=== PATIENT | male | born 1995 | race Caucasian/White ===

== ENCOUNTER 2021-06-26 14:13 | Inpatient (IN) | payer BC, MEDICAID ==
[2021-06-26] MEDS ORDERED: Sodium Chloride 0.9% 10 ML Syringe FLUSH PRN (14:29)
--- NOTE | 2021-06-26 14:42 | EDM.PDOC ---
ED HPI GENERAL MEDICAL PROBLEM - General Chief Complaint: Respiratory Problem Stated Complaint: COVID +/SOB Time Seen by Provider: 06/26/21 14:25 Source of Information: Reports: Patient, RN Notes Reviewed History Limitations: Reports: No Limitations - History of Present Illness INITIAL COMMENTS - FREE TEXT/NARRATIVE: Patient is a 25-year-old male who presents to the ER for the evaluation of his COVID-19 symptoms. Upon presentation to the ER, O2 sats were found to be in the upper 80s on room air. Throughout exam, they steadily stayed in the upper 80s so we did place him on 2 L nasal cannula, and this did increase his oxygen saturations to about 93 to 94%. He is in no visible respiratory distress at this time but is been having increased cough, body aches, lethargy since about Wednesday, and did test positive on Wednesday morning. Has been using Tylenol and ibuprofen for symptomatic management. Patient's body habitus would be his only risk factor for worsening disease, as his BMI is over 40 he is denying any other past medical history. He has no regular care provider. Patient was not vaccinated for COVID-19. Lower Back Pain Score (Numeric/FACES): 5 - Related Data Allergies Allergy/AdvReac Type Severity Reaction Status Date / Time No Known Allergies Allergy Verified 06/26/21 14:28 Home Meds: Home Meds . [No Known Home Meds] 06/26/21 [History] Past Medical History - Past Health History Medical/Surgical History: Denies Medical/Surgical History Endocrine/Metabolic History: Reports: Obesity/BMI 30+ - Infectious Disease History Infectious Disease History: Reports: Novel Coronavirus (06/2021) Social & Family History - Tobacco Use Tobacco Use Status *Q: Never Tobacco User - Caffeine Use Caffeine Use: Reports: Energy Drinks, Soda - Recreational Drug Use Recreational Drug Use: No ED ROS GENERAL - Review of Systems Review Of Systems: Comprehensive ROS is negative, except as noted in HPI. ED EXAM, GENERAL - Physical Exam Exam: See Below Exam Limited By: No Limitations General Appearance: Alert, WD/WN, No Apparent Distress Respiratory/Chest: No Respiratory Distress, Normal Breath Sounds, No Accessory Muscle Use, Chest Non-Tender, Decreased Breath Sounds (bilaterally) Cardiovascular: Normal Peripheral Pulses, Regular Rate, Rhythm, No Edema Peripheral Pulses: 2+: Radial (L), Radial (R) GI/Abdominal: Normal Bowel Sounds, Soft, Non-Tender, No Distention, No Mass Extremities: Normal Inspection, Normal Capillary Refill Neurological: Alert, Oriented, Normal Cognition, No Motor/Sensory Deficits Psychiatric: Normal Affect, Normal Mood Skin Exam: Warm, Dry, Intact, Normal Color, No Rash Course - Vital Signs Last Recorded V/S: Last Vital Signs Temp 97.0 F 06/26/21 16:57 Pulse 92 06/26/21 16:57 Resp 16 06/26/21 16:57 BP 118/57 L 06/26/21 16:57 Pulse Ox 88 L 06/26/21 17:36 - Orders/Labs/Meds Orders: Active Orders 24 hr Category Date Time Status Nurse Communication: Isolation [RC] ASDIRECTED Care 06/26/21 15:43 Active Oxygen Therapy [RC] PRN Care 06/26/21 15:43 Active Positioning, Patient [RC] ASDIRECTED Care 06/26/21 15:47 Active RT Aerosol Therapy [RC] ASDIRECTED Care 06/26/21 15:48 Active RT Incentive Spirometry [RC] ASDIRECTED Care 06/26/21 15:43 Active Up ad Kristine [RC] 1100 Care 06/26/21 15:43 Active VTE/DVT Education [RC] PER UNIT ROUTINE Care 06/26/21 15:43 Active Vital Signs [RC] Q4HR Care 06/26/21 15:43 Active Respiratory Care Assess and Treatment [CONS] Routine Cons 06/26/21 15:43 Active Regular Diet [DIET] Diet 06/26/21 Dinner Active C-REACTIVE PROTEIN [CHEM] AM Lab 06/27/21 05:11 Ordered C-REACTIVE PROTEIN [CHEM] AM Lab 06/28/21 05:11 Ordered C-REACTIVE PROTEIN [CHEM] AM Lab 06/29/21 05:11 Ordered C-REACTIVE PROTEIN [CHEM] AM Lab 06/30/21 05:11 Ordered C-REACTIVE PROTEIN [CHEM] AM Lab 07/01/21 05:11 Ordered CBC WITH AUTO DIFF [HEME] AM Lab 06/27/21 05:11 Ordered CBC WITH AUTO DIFF [HEME] AM Lab 06/28/21 05:11 Ordered CBC WITH AUTO DIFF [HEME] AM Lab 06/29/21 05:11 Ordered CBC WITH AUTO DIFF [HEME] AM Lab 06/30/21 05:11 Ordered CBC WITH AUTO DIFF [HEME] AM Lab 07/01/21 05:11 Ordered CMP [COMPREHENSIVE METABOLIC PN,CMP] [CHEM] AM Lab 06/27/21 05:11 Ordered CMP [COMPREHENSIVE METABOLIC PN,CMP] [CHEM] AM Lab 06/28/21 05:11 Ordered CMP [COMPREHENSIVE METABOLIC PN,CMP] [CHEM] AM Lab 06/29/21 05:11 Ordered CMP [COMPREHENSIVE METABOLIC PN,CMP] [CHEM] AM Lab 06/30/21 05:11 Ordered CMP [COMPREHENSIVE METABOLIC PN,CMP] [CHEM] AM Lab 07/01/21 05:11 Ordered MAGNESIUM [CHEM] AM Lab 06/27/21 05:11 Ordered MAGNESIUM [CHEM] AM Lab 06/28/21 05:11 Ordered MAGNESIUM [CHEM] AM Lab 06/29/21 05:11 Ordered MAGNESIUM [CHEM] AM Lab 06/30/21 05:11 Ordered MAGNESIUM [CHEM] AM Lab 07/01/21 05:11 Ordered PHOSPHORUS [CHEM] AM Lab 06/27/21 05:11 Ordered PHOSPHORUS [CHEM] AM Lab 06/28/21 05:11 Ordered PHOSPHORUS [CHEM] AM Lab 06/29/21 05:11 Ordered PHOSPHORUS [CHEM] AM Lab 06/30/21 05:11 Ordered PHOSPHORUS [CHEM] AM Lab 07/01/21 05:11 Ordered PROCALCITONIN [REF] Routine Lab 06/26/21 14:45 Received Acetaminophen [TylenoL] Med 06/26/21 15:43 Active 650 mg PO Q4H PRN Albuterol/Ipratropium [DuoNeb 3.0-0.5 MG/3 ML] Med 06/26/21 15:43 Active 3 ml NEB Q4H PRN Benzonatate [Tessalon Perles] Med 06/26/21 15:48 Active 200 mg PO Q8H PRN Ondansetron [Zofran] Med 06/26/21 15:43 Active 4 mg IV Q6H PRN Remdesivir 100 mg Med 06/27/21 15:45 Active Sodium Chloride 0.9% [Normal Saline] 100 ml IV Q24H Sodium Chloride 0.9% [Saline Flush] Med 06/26/21 14:29 Active 10 ml FLUSH ASDIRECTED PRN polyethylene glycoL 3350 [MiraLAX] Med 06/26/21 15:43 Active 17 gm PO DAILY PRN Isolation [COMM] Stat Oth 06/26/21 15:43 Ordered Peripheral IV Insertion Adult [OM.PC] Routine Oth 06/26/21 14:29 Ordered Resuscitation Status Routine Resus Stat 06/26/21 15:43 Ordered Medication Orders Acetaminophen (Acetaminophen 325 Mg Tab) 650 mg PO Q4H PRN PRN Reason: Pain (Mild 1-3)/fever Last Admin: 06/26/21 18:03 Dose: 650 mg Documented by: SONY Albuterol/Ipratropium (Albuterol/Ipratropium 3.0-0.5 Mg/3 Ml Neb Soln) 3 ml NEB Q4H PRN PRN Reason: Shortness Of Breath/wheezing Benzonatate (Benzonatate 100 Mg Cap) 200 mg PO Q8H PRN PRN Reason: Cough Dexamethasone (Dexamethasone 4 Mg Tab) 6 mg PO Q24H [facility] Stop: 07/05/21 21:01 Last Admin: 06/26/21 20:23 Dose: 6 mg Documented by: LISS Enoxaparin Sodium (Enoxaparin 40 Mg/0.4 Ml Syringe) 40 mg SUBCUT Q24H [facility] Last Admin: 06/26/21 20:23 Dose: 40 mg Documented by: LISS Remdesivir 100 mg/ Sodium (Chloride) 100 mls @ 100 mls/hr IV Q24H MELLISA Stop: 06/30/21 16:44 Ondansetron HCl (Ondansetron 4 Mg/2 Ml Sdv) 4 mg IV Q6H PRN PRN Reason: Nausea/Vomiting Polyethylene Glycol (Polyethylene Glycol 3350 Powder 17 Gm Packet) 17 gm PO DAILY PRN PRN Reason: Constipation Sodium Chloride (Sodium Chloride 0.9% 10 Ml Syringe) 10 ml FLUSH ASDIRECTED PRN PRN Reason: Keep Vein Open Last Admin: 06/26/21 14:59 Dose: 10 ml Documented by: JAMES Labs: Laboratory Tests 06/26/21 06/26/21 06/26/21 Range/Units 14:45 14:45 14:45 WBC 7.83 (4.23-9.07) K/mm3 RBC 5.12 (4.63-6.08) M/mm3 Hgb 13.7 (13.7-17.5) gm/dl Hct 41.9 (40.1-51.0) % MCV 81.8 (79.0-92.2) fl MCH 26.8 (25.7-32.2) pg MCHC 32.7 (32.2-35.5) g/dl RDW Std Deviation 42.8 (35.1-43.9) fL Plt Count 164 (163-337) K/mm3 MPV 11.4 (9.4-12.3) fl Neut % (Auto) 85.1 H (34.0-67.9) % Lymph % (Auto) 12.4 L (21.8-53.1) % [place] % (Auto) 2.4 L (5.3-12.2) % Eos % (Auto) 0 L (0.8-7.0) Baso % (Auto) 0.1 (0.1-1.2) % Neut # (Auto) 6.66 H (1.78-5.38) K/mm3 Lymph # (Auto) 0.97 L (1.32-3.57) K/mm3 [place] # (Auto) 0.19 L (0.30-0.82) K/mm3 Eos # (Auto) 0.00 L (0.04-0.54) K/mm3 Baso # (Auto) 0.01 (0.01-0.08) K/mm3 D-Dimer, Quantitative 2.06 H (0.19-0.50) mg/L Sodium 137 (136-145) mEq/L Potassium 3.9 (3.5-5.1) mEq/L Chloride 97 L (98-107) mEq/L Carbon Dioxide 26 (21-32) mEq/L Anion Gap 17.9 H (5-15) BUN 27 H (7-18) mg/dL Creatinine 1.4 H (0.7-1.3) mg/dL Est Cr Clr Drug Dosing 79.39 mL/min Estimated GFR (MDRD) > 60 (>60) mL/min BUN/Creatinine Ratio 19.3 H (14-18) Glucose 124 H (70-99) mg/dL Calcium 8.5 (8.5-10.1) mg/dL Total Bilirubin 0.5 (0.2-1.0) mg/dL AST 61 H (15-37) U/L ALT 26 (16-63) U/L Alkaline Phosphatase 80 (46-116) U/L C-Reactive Protein 8.0 H* (<1.0) mg/dL Total Protein 7.6 (6.4-8.2) g/dl Albumin 3.3 L (3.4-5.0) g/dl Globulin 4.3 gm/dL Albumin/Globulin Ratio 0.8 L (1-2) Meds: Medications Generic Name Dose Route Start Last Admin Trade Name Nakia PRN Reason Stop Dose Admin Acetaminophen 650 mg 06/26/21 15:43 06/26/21 18:03 Acetaminophen 325 Mg Tab PO 650 mg Q4H PRN Administration Pain (Mild 1-3)/fever Albuterol/Ipratropium 3 ml 06/26/21 15:43 Albuterol/Ipratropium 3.0-0.5 Mg/3 Ml Neb Soln NEB Q4H PRN Shortness Of Breath/wheezing Benzonatate 200 mg 06/26/21 15:48 Benzonatate 100 Mg Cap PO Q8H PRN Cough Dexamethasone 6 mg 06/26/21 21:00 06/26/21 20:23 Dexamethasone 4 Mg Tab PO 07/05/21 21:01 6 mg Q24H MELLISA Administration Enoxaparin Sodium 40 mg 06/26/21 21:00 06/26/21 20:23 Enoxaparin 40 Mg/0.4 Ml Syringe SUBCUT 40 mg Q24H MELLISA Administration Remdesivir 100 mg/ Sodium 100 mls @ 100 mls/hr 06/27/21 15:45 Chloride IV 06/30/21 16:44 Q24H MELLISA Ondansetron HCl 4 mg 06/26/21 15:43 Ondansetron 4 Mg/2 Ml Sdv IV Q6H PRN Nausea/Vomiting Polyethylene Glycol 17 gm 06/26/21 15:43 Polyethylene Glycol 3350 Powder 17 Gm Packet PO DAILY PRN Constipation Sodium Chloride 10 ml 06/26/21 14:29 06/26/21 14:59 Sodium Chloride 0.9% 10 Ml Syringe FLUSH 10 ml ASDIRECTED PRN Administration Keep Vein Open Discontinued Medications Generic Name Dose Route Start Last Admin Trade Name Nakia PRN Reason Stop Dose Admin Dexamethasone 6 mg 06/26/21 16:00 06/26/21 17:42 Dexamethasone 4 Mg Tab PO 07/05/21 09:01 Not Given DAILY MELLISA Enoxaparin Sodium 40 mg 06/26/21 15:45 06/26/21 17:42 Enoxaparin 40 Mg/0.4 Ml Syringe SUBCUT Not Given DAILY MELLISA Remdesivir 200 mg/ Sodium 250 mls @ 250 mls/hr 06/26/21 15:43 06/26/21 17:11 Chloride IV 06/26/21 15:44 250 mls/hr ONETIME ONE Administration Influenza Virus Vaccine 1 each 06/26/21 17:16 Pharmacy To Dose - Influenza Vaccine IM 06/26/21 17:17 ONETIME ONE Influenza Virus Vaccine 60 mcg 06/26/21 17:30 Flu Vacc [id number] 36mos Up/Pf 60 Mcg/0.5 Ml Syringe IM 06/26/21 17:31 .ONCE ONE - Re-Assessments/Exams Free Text/Narrative Re-Assessment/Exam: 06/26/21 14:41 Patient presents to the ER for evaluation of his COVID-19 symptoms. He is hypoxic at initial presentation and has been placed on 2 L nasal cannula and is satting around 94%. I will discuss his case with our hospitalist, Dr. Veloz for possible hospital admission. 06/26/21 15:13 Chest x-ray does demonstrate diffuse patchy infiltrates. Departure - Departure Time of Disposition: 16:00 Disposition: Admitted As Inpatient 68 Condition: Fair Clinical Impression: Pneumonia due to COVID-19 virus, Hypoxia - Discharge Information Sepsis Event Note (ED) - Evaluation Sepsis Screening Result: No Definite Risk - Focused Exam Vital Signs: Vital Signs Temp Pulse Resp BP BP Pulse Ox 06/26/21 14:53 91 20 123/58 L 95 06/26/21 14:23 97.1 F 96 18 122/58 L 87 L - My Orders Last 24 Hours: My Active Orders 06/26/21 14:29 Sodium Chloride 0.9% [Saline Flush] 10 ml FLUSH ASDIRECTED PRN Peripheral IV Insertion Adult [OM.PC] Routine - Assessment/Plan Last 24 Hours: My Active Orders 06/26/21 14:29 Sodium Chloride 0.9% [Saline Flush] 10 ml FLUSH ASDIRECTED PRN Peripheral IV Insertion Adult [OM.PC] Routine
[2021-06-26] MEDS ORDERED: Acetaminophen 325 MG Tab PO PRN (15:43)
[2021-06-26] MEDS ORDERED: Polyethylene Glycol 3350 Powder 17 GM Packet PO PRN (15:43)
[2021-06-26] MEDS ORDERED: REMDESIVIR 200 MG in Sodium Chloride 0.9% 250 ML IV ONE (15:43)
[2021-06-26] MEDS ORDERED: Ondansetron 4 MG/2 ML SDV IV PRN (15:43)
[2021-06-26] MEDS ORDERED: Enoxaparin 40 MG/0.4 ML Syringe SUBCUT SCH (15:45)
[2021-06-26] MEDS ORDERED: Benzonatate 100 MG Cap PO PRN (15:48)
--- NOTE | 2021-06-26 15:50 | PCM.HP.2 ---
H&P History of Present Illness - General Date of Service: 06/26/21 - History of Present Illness Initial Comments - Free Text/Narative: 25-year-old morbidly obese male presenting to the emergency department with COVID-19 symptoms. Patient complains of mainly fatigue. Has some shortness of breath, cough, body aches over the last several days. Symptoms for started approximately 1 week ago. When he presented to the emergency department his oxygen saturations were in the 80s and he was placed on 2 L nasal cannula. Oxygen saturations improved to 93 to 94% that time. Lower Back Pain Score (Numeric/FACES): 5 - Related Data Allergies/Adverse Reactions: Allergies Allergy/AdvReac Type Severity Reaction Status Date / Time No Known Allergies Allergy Verified 06/26/21 14:28 Home Medications: Home Meds . [No Known Home Meds] 06/26/21 [History] Past Medical History - Past Health History Medical/Surgical History: Denies Medical/Surgical History Endocrine/Metabolic History: Reports: Obesity/BMI 30+ - Infectious Disease History Infectious Disease History: Reports: Novel Coronavirus (06/2021) Social & Family History - Tobacco Use Tobacco Use Status *Q: Never Tobacco User - Caffeine Use Caffeine Use: Reports: Energy Drinks, Soda - Recreational Drug Use Recreational Drug Use: No H&P Review of Systems - Review of Systems: Review Of Systems: Comprehensive ROS is negative, except as noted in HPI. Exam - Exam Exam: See Below - Vital Signs Vital Signs: Last Vital Signs Temp 97.1 F 06/26/21 14:23 Pulse 91 06/26/21 14:53 Resp 20 06/26/21 14:53 BP 123/58 L 06/26/21 14:53 Pulse Ox 95 06/26/21 14:53 Weight: 262 lb 12.8 oz - Exam Quality Assessment: Supplemental Oxygen General: Alert, Oriented, 4 HEENT: Conjunctiva Clear, Hearing Intact, Mucosa Moist & [place], Normal Nasal Septum Neck: Supple, Trachea Midline, 2 Lungs: Normal Respiratory Effort, Crackles (Bibasilar) Cardiovascular: Regular Rate, Regular Rhythm GI/Abdominal Exam: Normal Bowel Sounds, Soft, Non-Tender, No Distention Extremities: Normal Inspection, Normal Range of Motion, Non-Tender, No Pedal Edema, Normal Capillary Refill Skin: Warm, Dry, Intact Neurological: Cranial Nerves Intact Neuro Extensive - Mental Status: Alert, Oriented x3, Normal Mood/Affect, Normal Cognition, Memory Intact Neuro Extensive - Motor, Sensory, Reflexes: CN II-XII Intact Psychiatric: Alert, Normal Affect, Normal Mood - Patient Data Lab Results Last 24 hrs: Laboratory Results - last 24 hr 06/26/21 06/26/21 Range/Units 14:45 14:45 WBC 7.83 (4.23-9.07) K/mm3 RBC 5.12 (4.63-6.08) M/mm3 Hgb 13.7 (13.7-17.5) gm/dl Hct 41.9 (40.1-51.0) % MCV 81.8 (79.0-92.2) fl MCH 26.8 (25.7-32.2) pg MCHC 32.7 (32.2-35.5) g/dl RDW Std Deviation 42.8 (35.1-43.9) fL Plt Count 164 (163-337) K/mm3 MPV 11.4 (9.4-12.3) fl Neut % (Auto) 85.1 H (34.0-67.9) % Lymph % (Auto) 12.4 L (21.8-53.1) % [place] % (Auto) 2.4 L (5.3-12.2) % Eos % (Auto) 0 L (0.8-7.0) Baso % (Auto) 0.1 (0.1-1.2) % Neut # (Auto) 6.66 H (1.78-5.38) K/mm3 Lymph # (Auto) 0.97 L (1.32-3.57) K/mm3 [place] # (Auto) 0.19 L (0.30-0.82) K/mm3 Eos # (Auto) 0.00 L (0.04-0.54) K/mm3 Baso # (Auto) 0.01 (0.01-0.08) K/mm3 Sodium 137 (136-145) mEq/L Potassium 3.9 (3.5-5.1) mEq/L Chloride 97 L (98-107) mEq/L Carbon Dioxide 26 (21-32) mEq/L Anion Gap 17.9 H (5-15) BUN 27 H (7-18) mg/dL Creatinine 1.4 H (0.7-1.3) mg/dL Est Cr Clr Drug Dosing 79.39 mL/min Estimated GFR (MDRD) > 60 (>60) mL/min BUN/Creatinine Ratio 19.3 H (14-18) Glucose 124 H (70-99) mg/dL Calcium 8.5 (8.5-10.1) mg/dL Total Bilirubin 0.5 (0.2-1.0) mg/dL AST 61 H (15-37) U/L ALT 26 (16-63) U/L Alkaline Phosphatase 80 (46-116) U/L C-Reactive Protein 8.0 H* (<1.0) mg/dL Total Protein 7.6 (6.4-8.2) g/dl Albumin 3.3 L (3.4-5.0) g/dl Globulin 4.3 gm/dL Albumin/Globulin Ratio 0.8 L (1-2) Result Diagrams: 06/27/21 05:43 06/27/21 05:43 Sepsis Event Note - Evaluation Sepsis Screening Result: No Definite Risk - Focused Exam Vital Signs: Vital Signs Temp Pulse Resp BP BP Pulse Ox 06/26/21 14:53 91 20 123/58 L 95 06/26/21 14:23 97.1 F 96 18 122/58 L 87 L - Problem List (1) Hypoxia SNOMED Code(s): 811236434 ICD Code: R09.02 - HYPOXEMIA Status: Acute Current Visit: Yes (2) Pneumonia due to COVID-19 virus SNOMED Code(s): 313786916153698916 ICD Code: U07.1 - COVID-19; J12.82 - PNEUMONIA DUE TO CORONAVIRUS DISEASE 2019 Status: Acute Current Visit: Yes Problem List Initiated/Reviewed/Updated: Yes Orders Last 24hrs: Active Orders 24 hr Category Date Time Status Nurse Communication: Isolation [RC] ASDIRECTED Care 06/26/21 15:43 Active Oxygen Therapy [RC] PRN Care 06/26/21 15:43 Active Peripheral IV Care [RC] . DIRECTED Care 06/26/21 14:30 Active Positioning, Patient [RC] ASDIRECTED Care 06/26/21 15:47 Active RT Aerosol Therapy [RC] ASDIRECTED Care 06/26/21 15:48 Active RT Incentive Spirometry [RC] ASDIRECTED Care 06/26/21 15:43 Active Up ad Kristine [RC] ASDIRECTED Care 06/26/21 15:43 Active VTE/DVT Education [RC] PER UNIT ROUTINE Care 06/26/21 15:43 Active Vital Signs [RC] Q4H Care 06/26/21 15:43 Active Respiratory Care Assess and Treatment [CONS] Routine Cons 06/26/21 15:43 Active Regular Diet [DIET] Diet 06/26/21 Dinner Active Chest 1V Frontal [CR] Stat Exams 06/26/21 14:29 Taken C-REACTIVE PROTEIN [CHEM] AM Lab 06/27/21 05:11 Ordered C-REACTIVE PROTEIN [CHEM] AM Lab 06/28/21 05:11 Ordered C-REACTIVE PROTEIN [CHEM] AM Lab 06/29/21 05:11 Ordered C-REACTIVE PROTEIN [CHEM] AM Lab 06/30/21 05:11 Ordered C-REACTIVE PROTEIN [CHEM] AM Lab 07/01/21 05:11 Ordered CBC WITH AUTO DIFF [HEME] AM Lab 06/27/21 05:11 Ordered CBC WITH AUTO DIFF [HEME] AM Lab 06/28/21 05:11 Ordered CBC WITH AUTO DIFF [HEME] AM Lab 06/29/21 05:11 Ordered CBC WITH AUTO DIFF [HEME] AM Lab 06/30/21 05:11 Ordered CBC WITH AUTO DIFF [HEME] AM Lab 07/01/21 05:11 Ordered CMP [COMPREHENSIVE METABOLIC PN,CMP] [CHEM] AM Lab 06/27/21 05:11 Ordered CMP [COMPREHENSIVE METABOLIC PN,CMP] [CHEM] AM Lab 06/28/21 05:11 Ordered CMP [COMPREHENSIVE METABOLIC PN,CMP] [CHEM] AM Lab 06/29/21 05:11 Ordered CMP [COMPREHENSIVE METABOLIC PN,CMP] [CHEM] AM Lab 06/30/21 05:11 Ordered CMP [COMPREHENSIVE METABOLIC PN,CMP] [CHEM] AM Lab 07/01/21 05:11 Ordered D-DIMER QUANTITATIVE [COAG] Stat Lab 06/26/21 14:45 Received MAGNESIUM [CHEM] AM Lab 06/27/21 05:11 Ordered MAGNESIUM [CHEM] AM Lab 06/28/21 05:11 Ordered MAGNESIUM [CHEM] AM Lab 06/29/21 05:11 Ordered MAGNESIUM [CHEM] AM Lab 06/30/21 05:11 Ordered MAGNESIUM [CHEM] AM Lab 07/01/21 05:11 Ordered PHOSPHORUS [CHEM] AM Lab 06/27/21 05:11 Ordered PHOSPHORUS [CHEM] AM Lab 06/28/21 05:11 Ordered PHOSPHORUS [CHEM] AM Lab 06/29/21 05:11 Ordered PHOSPHORUS [CHEM] AM Lab 06/30/21 05:11 Ordered PHOSPHORUS [CHEM] AM Lab 07/01/21 05:11 Ordered PROCALCITONIN [REF] Routine Lab 06/26/21 15:48 Ordered Acetaminophen [TylenoL] Med 06/26/21 15:43 Active 650 mg PO Q4H PRN Albuterol/Ipratropium [DuoNeb 3.0-0.5 MG/3 ML] Med 06/26/21 15:43 Ordered 3 ml NEB Q4H PRN Benzonatate [Tessalon Perles] Med 06/26/21 15:48 Ordered 200 mg PO Q8H PRN Enoxaparin [Lovenox] Med 06/26/21 15:45 Active 40 mg SUBCUT DAILY Ondansetron [Zofran] Med 06/26/21 15:43 Ordered 4 mg IV Q6H PRN Remdesivir 100 mg Med 06/27/21 15:45 Ordered Sodium Chloride 0.9% [Normal Saline] 100 ml IV Q24H Remdesivir 200 mg Med 06/26/21 15:43 Ordered Sodium Chloride 0.9% [Normal Saline] 250 ml IV ONETIME Sodium Chloride 0.9% [Saline Flush] Med 06/26/21 14:29 Active 10 ml FLUSH ASDIRECTED PRN dexAMETHasone Med 06/26/21 16:00 Ordered 6 mg PO DAILY polyethylene glycoL 3350 [MiraLAX] Med 06/26/21 15:43 Ordered 17 gm PO DAILY PRN Isolation [COMM] Stat Oth 06/26/21 15:43 Ordered Peripheral IV Insertion Adult [OM.PC] Routine Oth 06/26/21 14:29 Ordered Resuscitation Status Routine Resus Stat 06/26/21 15:43 Ordered Medication Orders Acetaminophen (Acetaminophen 325 Mg Tab) 650 mg PO Q4H PRN PRN Reason: Pain (Mild 1-3)/fever Albuterol/Ipratropium (Albuterol/Ipratropium 3.0-0.5 Mg/3 Ml Neb Soln) 3 ml NEB Q4H PRN PRN Reason: Shortness Of Breath/wheezing Dexamethasone (Dexamethasone 4 Mg Tab) 6 mg PO DAILY MELLISA Stop: 07/05/21 09:01 Enoxaparin Sodium (Enoxaparin 40 Mg/0.4 Ml Syringe) 40 mg SUBCUT DAILY [facility] Ondansetron HCl (Ondansetron 4 Mg/2 Ml Sdv) 4 mg IV Q6H PRN PRN Reason: Nausea/Vomiting Polyethylene Glycol (Polyethylene Glycol 3350 Powder 17 Gm Packet) 17 gm PO DAILY PRN PRN Reason: Constipation Sodium Chloride (Sodium Chloride 0.9% 10 Ml Syringe) 10 ml FLUSH ASDIRECTED PRN PRN Reason: Keep Vein Open Last Admin: 06/26/21 14:59 Dose: 10 ml Documented by: JAMES Assessment/Plan Comment:: 25-year-old morbidly obese male with COVID-19 pneumonia and hypoxemia. COVID-19 pneumonia with hypoxia * Requiring 2 L nasal cannula * Did not receive vaccination * WBC 7.83, D-dimer 2.06, C-reactive protein 8.0 * Creatinine 1.4, unknown if this is his baseline or mildly elevated. Estimated GFR still greater than 60. * Decrease sense of smell and taste with poor appetite * Chest x-ray showed diffuse increased density within both sides of the chest suspicious for diffuse Covid pneumonia * No findings suggestive of bacterial pneumonia Plan * Admit to medical floor with strict isolation * Remdesivir, dexamethasone, FiO2 to keep SPO2 between 88 and 94%. * Follow daily CBC, CMP, mag, CRP for the first 5 days * Follow periodic D-dimers * RT consult. * I-S * Encourage quality food including protein intake * Encourage proning * Lovenox 40 mg subcu for VTE prophylaxis * CODE STATUS full code - Mortality Measure Prognosis:: Good
[2021-06-26] MEDS ORDERED: Dexamethasone 4 MG Tab PO SCH (16:00)
--- NOTE | 2021-06-26 16:33 | CR ---
Chest: Portable supine view of the chest was obtained. Comparison: Prior chest x-ray of 04/28/09. Heart size and mediastinum are within normal limits for supine technique. Patchy areas of increased density are noted throughout both sides of the chest which have the appearance of diffuse Covid pneumonia. Bony structures appear within normal limits. Impression: 1. Diffuse increased density within both sides of the chest suspicious for diffuse Covid pneumonia. Diagnostic code #3
[2021-06-26] MEDS ORDERED: FLU Vacc QS2021-22 36MOS UP/PF 60 MCG/0.5 ML Syringe IM ONE (17:30)
[2021-06-26] MEDS: Dexamethasone 4 MG Tab PO SCH (20:23)
[2021-06-26] MEDS: Enoxaparin 40 MG/0.4 ML Syringe SUBCUT SCH (20:23)
[2021-06-27] MEDS: Albuterol/Ipratropium 3.0-0.5 MG/3 ML Neb Soln NEB PRN ×2 (09:22→20:35)
--- NOTE | 2021-06-27 14:04 | PCM.PN ---
- General Info Date of Service: 06/27/21 Admission Dx/Problem (Free Text): COVID-19 positive test (U07.1, COVID-19) with Acute Pneumonia (J12.89, Other viral pneumonia) (If respiratory failure or sepsis present, add as separate assessment) Subjective Update: 25-year-old morbidly obese male not vaccinated against COVID-19 with Covid pneumonia. Oxygen requirements worsened and FiO2 was increased from 2 L/min nasal cannula to a 10 L mask. Functional Status: Reports: Pain Controlled - Review of Systems General: Reports: Fatigue HEENT: Reports: No Symptoms Pulmonary: Reports: Shortness of Breath, Cough Cardiovascular: Reports: No Symptoms Gastrointestinal: Reports: No Symptoms Musculoskeletal: Reports: No Symptoms Psychiatric: Reports: No Symptoms - Patient Data Vitals - Most Recent: Last Vital Signs Temp 97.5 F 06/27/21 11:55 Pulse 86 06/27/21 11:55 Resp 20 06/27/21 11:55 BP 108/53 L 06/27/21 11:55 Pulse Ox 94 L 06/27/21 12:26 Weight - Most Recent: 254 lb 1.6 oz I&O - Last 24 Hours: Intake & Output 06/26/21 06/27/21 06/27/21 22:59 06:59 14:59 Intake Total 440 800 Balance 440 800 Lab Results Last 24 Hours: Laboratory Results - last 24 hr 06/26/21 06/26/21 06/26/21 Range/Units 14:45 14:45 14:45 WBC 7.83 (4.23-9.07) K/mm3 RBC 5.12 (4.63-6.08) M/mm3 Hgb 13.7 (13.7-17.5) gm/dl Hct 41.9 (40.1-51.0) % MCV 81.8 (79.0-92.2) fl MCH 26.8 (25.7-32.2) pg MCHC 32.7 (32.2-35.5) g/dl RDW Std Deviation 42.8 (35.1-43.9) fL Plt Count 164 (163-337) K/mm3 MPV 11.4 (9.4-12.3) fl Neut % (Auto) 85.1 H (34.0-67.9) % Lymph % (Auto) 12.4 L (21.8-53.1) % [place] % (Auto) 2.4 L (5.3-12.2) % Eos % (Auto) 0 L (0.8-7.0) Baso % (Auto) 0.1 (0.1-1.2) % Neut # (Auto) 6.66 H (1.78-5.38) K/mm3 Lymph # (Auto) 0.97 L (1.32-3.57) K/mm3 [place] # (Auto) 0.19 L (0.30-0.82) K/mm3 Eos # (Auto) 0.00 L (0.04-0.54) K/mm3 Baso # (Auto) 0.01 (0.01-0.08) K/mm3 D-Dimer, Quantitative 2.06 H (0.19-0.50) mg/L Sodium 137 (136-145) mEq/L Potassium 3.9 (3.5-5.1) mEq/L Chloride 97 L (98-107) mEq/L Carbon Dioxide 26 (21-32) mEq/L Anion Gap 17.9 H (5-15) BUN 27 H (7-18) mg/dL Creatinine 1.4 H (0.7-1.3) mg/dL Est Cr Clr Drug Dosing 79.39 mL/min Estimated GFR (MDRD) > 60 (>60) mL/min BUN/Creatinine Ratio 19.3 H (14-18) Glucose 124 H (70-99) mg/dL Calcium 8.5 (8.5-10.1) mg/dL Phosphorus (2.6-4.7) mg/dL Magnesium (1.8-2.4) mg/dL Total Bilirubin 0.5 (0.2-1.0) mg/dL AST 61 H (15-37) U/L ALT 26 (16-63) U/L Alkaline Phosphatase 80 (46-116) U/L C-Reactive Protein 8.0 H* (<1.0) mg/dL Total Protein 7.6 (6.4-8.2) g/dl Albumin 3.3 L (3.4-5.0) g/dl Globulin 4.3 gm/dL Albumin/Globulin Ratio 0.8 L (1-2) Procalcitonin ng/mL 06/26/21 06/27/21 06/27/21 Range/Units 14:45 05:43 05:43 WBC 6.50 (4.23-9.07) K/mm3 RBC 5.10 (4.63-6.08) M/mm3 Hgb 13.6 L (13.7-17.5) gm/dl Hct 41.3 (40.1-51.0) % MCV 81.0 (79.0-92.2) fl MCH 26.7 (25.7-32.2) pg MCHC 32.9 (32.2-35.5) g/dl RDW Std Deviation 41.9 (35.1-43.9) fL Plt Count 172 (163-337) K/mm3 MPV 11.6 (9.4-12.3) fl Neut % (Auto) 89.1 H (34.0-67.9) % Lymph % (Auto) 8.3 L (21.8-53.1) % [place] % (Auto) 2.2 L (5.3-12.2) % Eos % (Auto) 0 L (0.8-7.0) Baso % (Auto) 0.2 (0.1-1.2) % Neut # (Auto) 5.80 H (1.78-5.38) K/mm3 Lymph # (Auto) 0.54 L (1.32-3.57) K/mm3 [place] # (Auto) 0.14 L (0.30-0.82) K/mm3 Eos # (Auto) 0.00 L (0.04-0.54) K/mm3 Baso # (Auto) 0.01 (0.01-0.08) K/mm3 D-Dimer, Quantitative (0.19-0.50) mg/L Sodium 134 L (136-145) mEq/L Potassium 3.6 (3.5-5.1) mEq/L Chloride 97 L (98-107) mEq/L Carbon Dioxide 26 (21-32) mEq/L Anion Gap 14.6 (5-15) BUN 31 H (7-18) mg/dL Creatinine 1.1 (0.7-1.3) mg/dL Est Cr Clr Drug Dosing 101.05 mL/min Estimated GFR (MDRD) > 60 (>60) mL/min BUN/Creatinine Ratio 28.2 H (14-18) Glucose 144 H (70-99) mg/dL Calcium 8.3 L (8.5-10.1) mg/dL Phosphorus 4.4 (2.6-4.7) mg/dL Magnesium 2.3 (1.8-2.4) mg/dL Total Bilirubin 0.4 (0.2-1.0) mg/dL AST 72 H (15-37) U/L ALT 32 (16-63) U/L Alkaline Phosphatase 79 (46-116) U/L C-Reactive Protein 8.0 H* (<1.0) mg/dL Total Protein 7.3 (6.4-8.2) g/dl Albumin 2.9 L (3.4-5.0) g/dl Globulin 4.4 gm/dL Albumin/Globulin Ratio 0.7 L (1-2) Procalcitonin 0.16 H ng/mL Med Orders - Current: Current Medications Acetaminophen (Acetaminophen 325 Mg Tab) 650 mg PO Q4H PRN PRN Reason: Pain (Mild 1-3)/fever Last Admin: 06/26/21 18:03 Dose: 650 mg Documented by: Albuterol/Ipratropium (Albuterol/Ipratropium 3.0-0.5 Mg/3 Ml Neb Soln) 3 ml NEB Q4H PRN PRN Reason: Shortness Of Breath/wheezing Last Admin: 06/27/21 09:22 Dose: 3 ml Documented by: Benzonatate (Benzonatate 100 Mg Cap) 200 mg PO Q8H PRN PRN Reason: Cough Dexamethasone (Dexamethasone 4 Mg Tab) 6 mg PO Q24H [facility] Stop: 07/05/21 21:01 Last Admin: 06/26/21 20:23 Dose: 6 mg Documented by: Enoxaparin Sodium (Enoxaparin 40 Mg/0.4 Ml Syringe) 40 mg SUBCUT Q24H [facility] Last Admin: 06/26/21 20:23 Dose: 40 mg Documented by: Remdesivir 100 mg/ Sodium (Chloride) 100 mls @ 100 mls/hr IV Q24H [facility] Stop: 06/30/21 16:44 Ondansetron HCl (Ondansetron 4 Mg/2 Ml Sdv) 4 mg IV Q6H PRN PRN Reason: Nausea/Vomiting Polyethylene Glycol (Polyethylene Glycol 3350 Powder 17 Gm Packet) 17 gm PO DAILY PRN PRN Reason: Constipation Sodium Chloride (Sodium Chloride 0.9% 10 Ml Syringe) 10 ml FLUSH ASDIRECTED PRN PRN Reason: Keep Vein Open Last Admin: 06/26/21 14:59 Dose: 10 ml Documented by: Discontinued Medications Dexamethasone (Dexamethasone 4 Mg Tab) 6 mg PO DAILY [facility] Stop: 07/05/21 09:01 Last Admin: 06/26/21 17:42 Dose: Not Given Documented by: Enoxaparin Sodium (Enoxaparin 40 Mg/0.4 Ml Syringe) 40 mg SUBCUT DAILY [facility] Last Admin: 06/26/21 17:42 Dose: Not Given Documented by: Remdesivir 200 mg/ Sodium (Chloride) 250 mls @ 250 mls/hr IV ONETIME ONE Stop: 06/26/21 15:44 Last Admin: 06/26/21 17:11 Dose: 250 mls/hr Documented by: Influenza Virus Vaccine (Pharmacy To Dose - Influenza Vaccine) 1 each IM ONETIME ONE Stop: 06/26/21 17:17 Influenza Virus Vaccine (Flu Vacc [id number] 36mos Up/Pf 60 Mcg/0.5 Ml Syringe) 60 mcg IM .ONCE ONE Stop: 06/26/21 17:31 - Exam Quality Assessment: Supplemental Oxygen General: Alert, Oriented HEENT: Pupils Equal, Mucous Membr. Moist/[place] Neck: Supple Lungs: Crackles (Bibasilar crackles). No: Normal Respiratory Effort (Increased rate) Cardiovascular: Regular Rate, Regular Rhythm GI/Abdominal Exam: Normal Bowel Sounds, Soft, Non-Tender, No Distention Extremities: Normal Inspection, Normal Range of Motion, No Pedal Edema, Normal Capillary Refill Skin: Warm, Dry, Intact Psy/Mental Status: Alert, Normal Affect, Normal Mood - Patient Data Lab Results Last 24 hrs: Laboratory Results - last 24 hr 06/26/21 06/26/21 06/26/21 Range/Units 14:45 14:45 14:45 WBC 7.83 (4.23-9.07) K/mm3 RBC 5.12 (4.63-6.08) M/mm3 Hgb 13.7 (13.7-17.5) gm/dl Hct 41.9 (40.1-51.0) % MCV 81.8 (79.0-92.2) fl MCH 26.8 (25.7-32.2) pg MCHC 32.7 (32.2-35.5) g/dl RDW Std Deviation 42.8 (35.1-43.9) fL Plt Count 164 (163-337) K/mm3 MPV 11.4 (9.4-12.3) fl Neut % (Auto) 85.1 H (34.0-67.9) % Lymph % (Auto) 12.4 L (21.8-53.1) % [place] % (Auto) 2.4 L (5.3-12.2) % Eos % (Auto) 0 L (0.8-7.0) Baso % (Auto) 0.1 (0.1-1.2) % Neut # (Auto) 6.66 H (1.78-5.38) K/mm3 Lymph # (Auto) 0.97 L (1.32-3.57) K/mm3 [place] # (Auto) 0.19 L (0.30-0.82) K/mm3 Eos # (Auto) 0.00 L (0.04-0.54) K/mm3 Baso # (Auto) 0.01 (0.01-0.08) K/mm3 D-Dimer, Quantitative 2.06 H (0.19-0.50) mg/L Sodium 137 (136-145) mEq/L Potassium 3.9 (3.5-5.1) mEq/L Chloride 97 L (98-107) mEq/L Carbon Dioxide 26 (21-32) mEq/L Anion Gap 17.9 H (5-15) BUN 27 H (7-18) mg/dL Creatinine 1.4 H (0.7-1.3) mg/dL Est Cr Clr Drug Dosing 79.39 mL/min Estimated GFR (MDRD) > 60 (>60) mL/min BUN/Creatinine Ratio 19.3 H (14-18) Glucose 124 H (70-99) mg/dL Calcium 8.5 (8.5-10.1) mg/dL Phosphorus (2.6-4.7) mg/dL Magnesium (1.8-2.4) mg/dL Total Bilirubin 0.5 (0.2-1.0) mg/dL AST 61 H (15-37) U/L ALT 26 (16-63) U/L Alkaline Phosphatase 80 (46-116) U/L C-Reactive Protein 8.0 H* (<1.0) mg/dL Total Protein 7.6 (6.4-8.2) g/dl Albumin 3.3 L (3.4-5.0) g/dl Globulin 4.3 gm/dL Albumin/Globulin Ratio 0.8 L (1-2) Procalcitonin ng/mL 06/26/21 06/27/21 06/27/21 Range/Units 14:45 05:43 05:43 WBC 6.50 (4.23-9.07) K/mm3 RBC 5.10 (4.63-6.08) M/mm3 Hgb 13.6 L (13.7-17.5) gm/dl Hct 41.3 (40.1-51.0) % MCV 81.0 (79.0-92.2) fl MCH 26.7 (25.7-32.2) pg MCHC 32.9 (32.2-35.5) g/dl RDW Std Deviation 41.9 (35.1-43.9) fL Plt Count 172 (163-337) K/mm3 MPV 11.6 (9.4-12.3) fl Neut % (Auto) 89.1 H (34.0-67.9) % Lymph % (Auto) 8.3 L (21.8-53.1) % [place] % (Auto) 2.2 L (5.3-12.2) % Eos % (Auto) 0 L (0.8-7.0) Baso % (Auto) 0.2 (0.1-1.2) % Neut # (Auto) 5.80 H (1.78-5.38) K/mm3 Lymph # (Auto) 0.54 L (1.32-3.57) K/mm3 [place] # (Auto) 0.14 L (0.30-0.82) K/mm3 Eos # (Auto) 0.00 L (0.04-0.54) K/mm3 Baso # (Auto) 0.01 (0.01-0.08) K/mm3 D-Dimer, Quantitative (0.19-0.50) mg/L Sodium 134 L (136-145) mEq/L Potassium 3.6 (3.5-5.1) mEq/L Chloride 97 L (98-107) mEq/L Carbon Dioxide 26 (21-32) mEq/L Anion Gap 14.6 (5-15) BUN 31 H (7-18) mg/dL Creatinine 1.1 (0.7-1.3) mg/dL Est Cr Clr Drug Dosing 101.05 mL/min Estimated GFR (MDRD) > 60 (>60) mL/min BUN/Creatinine Ratio 28.2 H (14-18) Glucose 144 H (70-99) mg/dL Calcium 8.3 L (8.5-10.1) mg/dL Phosphorus 4.4 (2.6-4.7) mg/dL Magnesium 2.3 (1.8-2.4) mg/dL Total Bilirubin 0.4 (0.2-1.0) mg/dL AST 72 H (15-37) U/L ALT 32 (16-63) U/L Alkaline Phosphatase 79 (46-116) U/L C-Reactive Protein 8.0 H* (<1.0) mg/dL Total Protein 7.3 (6.4-8.2) g/dl Albumin 2.9 L (3.4-5.0) g/dl Globulin 4.4 gm/dL Albumin/Globulin Ratio 0.7 L (1-2) Procalcitonin 0.16 H ng/mL Result Diagrams: 06/27/21 05:43 06/27/21 05:43 Sepsis Event Note - Evaluation Sepsis Screening Result: No Definite Risk - Focused Exam Vital Signs: Vital Signs Temp Pulse Resp BP Pulse Ox Pulse Ox 06/27/21 12:26 94 L 06/27/21 11:55 97.5 F 86 20 108/53 L 92 L 06/27/21 09:23 91 L 06/27/21 07:52 97.5 F 80 18 120/59 L 92 L 06/27/21 05:08 97.5 F 90 24 H 114/59 L 97 - Problem List & Annotations (1) Hypoxia SNOMED Code(s): 553664457 Code(s): R09.02 - HYPOXEMIA Status: Acute Current Visit: Yes (2) Pneumonia due to COVID-19 virus SNOMED Code(s): 888986576844553726 Code(s): U07.1 - COVID-19; J12.82 - PNEUMONIA DUE TO CORONAVIRUS DISEASE 2019 Status: Acute Current Visit: Yes - Problem List Review Problem List Initiated/Reviewed/Updated: Yes - My Orders Last 24 Hours: My Active Orders 06/26/21 15:43 Nurse Communication: Isolation [RC] ASDIRECTED Oxygen Therapy [RC] PRN RT Incentive Spirometry [RC] ASDIRECTED Up ad Kristine [RC] 1100 VTE/DVT Education [RC] PER UNIT ROUTINE Vital Signs [RC] Q4HR Respiratory Care Assess and Treatment [CONS] Routine Acetaminophen [TylenoL] 650 mg PO Q4H PRN Albuterol/Ipratropium [DuoNeb 3.0-0.5 MG/3 ML] 3 ml NEB Q4H PRN Ondansetron [Zofran] 4 mg IV Q6H PRN polyethylene glycoL 3350 [MiraLAX] 17 gm PO DAILY PRN Isolation [COMM] Stat Resuscitation Status Routine 06/26/21 15:47 Positioning, Patient [RC] ASDIRECTED 06/26/21 15:48 RT Aerosol Therapy [RC] ASDIRECTED Benzonatate [Tessalon Perles] 200 mg PO Q8H PRN 06/26/21 Dinner Regular Diet [DIET] 06/26/21 17:16 Vaccine to be Administered/Admin Charge [RC] ASDIRECTED 06/26/21 19:20 Pulse Oximetry [RC] CONTINUOUS 06/26/21 21:00 Enoxaparin [Lovenox] 40 mg SUBCUT Q24H dexAMETHasone 6 mg PO Q24H 06/27/21 15:45 Remdesivir 100 mg Sodium Chloride 0.9% [Normal Saline] 100 ml IV Q24H 06/28/21 05:11 C-REACTIVE PROTEIN [CHEM] AM CBC WITH AUTO DIFF [HEME] AM CMP [COMPREHENSIVE METABOLIC PN,CMP] [CHEM] AM MAGNESIUM [CHEM] AM PHOSPHORUS [CHEM] AM 06/29/21 05:11 C-REACTIVE PROTEIN [CHEM] AM CBC WITH AUTO DIFF [HEME] AM CMP [COMPREHENSIVE METABOLIC PN,CMP] [CHEM] AM MAGNESIUM [CHEM] AM PHOSPHORUS [CHEM] AM 06/30/21 05:11 C-REACTIVE PROTEIN [CHEM] AM CBC WITH AUTO DIFF [HEME] AM CMP [COMPREHENSIVE METABOLIC PN,CMP] [CHEM] AM MAGNESIUM [CHEM] AM PHOSPHORUS [CHEM] AM 07/01/21 05:11 C-REACTIVE PROTEIN [CHEM] AM CBC WITH AUTO DIFF [HEME] AM CMP [COMPREHENSIVE METABOLIC PN,CMP] [CHEM] AM MAGNESIUM [CHEM] AM PHOSPHORUS [CHEM] AM - Plan Plan:: 25-year-old morbidly obese male with COVID-19 pneumonia and hypoxemia. COVID-19 pneumonia with hypoxia * Requiring 10 L facemask * Did not receive vaccination * WBC 6.5, C-reactive protein 8.0 * Creatinine improved to 1.1, BUN is slightly higher at 31 * Decrease sense of smell and taste with poor appetite * Chest x-ray from day of admission showed diffuse increased density within both sides of the chest suspicious for diffuse Covid pneumonia * No findings suggestive of bacterial pneumonia Plan * Admit to medical floor with strict isolation * Remdesivir, dexamethasone * Patient may need high flow nasal cannula within the next day or 2 * Follow daily CBC, CMP, mag, CRP for the first 5 days * Follow periodic D-dimers * RT consult. * I-S * Encourage quality food including protein intake * Encourage proning * Lovenox 40 mg subcu for VTE prophylaxis * CODE STATUS full code
[2021-06-27] MEDS: REMDESIVIR 100 MG in Sodium Chloride 0.9% 100 ML IV SCH (15:51)
[2021-06-27] MEDS: Enoxaparin 40 MG/0.4 ML Syringe SUBCUT SCH (21:48)
[2021-06-27] MEDS: Dexamethasone 4 MG Tab PO SCH (21:48)
[2021-06-28] MEDS: Albuterol/Ipratropium 3.0-0.5 MG/3 ML Neb Soln NEB PRN ×3 (09:52→20:53)
--- NOTE | 2021-06-28 10:59 | PCM.PN ---
- General Info Date of Service: 06/28/21 Admission Dx/Problem (Free Text): COVID-19 positive test (U07.1, COVID-19) with Acute Pneumonia (J12.89, Other viral pneumonia) (If respiratory failure or sepsis present, add as separate assessment) Subjective Update: 25-year-old morbidly obese male not vaccinated against COVID-19 with Covid pneumonia. Patient had difficult night last night and was placed on high flow nasal cannula. Now he is on 60 L at approximately 90% FiO2. Appetite continues to be good, but he has developed some depression/irritation with his condition. Functional Status: Reports: Pain Controlled - Review of Systems General: Reports: Fatigue Pulmonary: Reports: Shortness of Breath Cardiovascular: Reports: No Symptoms Gastrointestinal: Reports: No Symptoms Musculoskeletal: Reports: No Symptoms - Patient Data Vitals - Most Recent: Last Vital Signs Temp 97.2 F 06/28/21 09:11 Pulse 85 06/28/21 09:11 Resp 22 H 06/28/21 09:11 BP 130/65 06/28/21 09:11 Pulse Ox 87 L 06/28/21 10:09 Weight - Most Recent: 248 lb 4.8 oz I&O - Last 24 Hours: Intake & Output 06/27/21 06/28/21 06/28/21 22:59 06:59 14:59 Intake Total 1540 800 Balance 1540 800 Lab Results Last 24 Hours: Laboratory Results - last 24 hr 06/26/21 06/28/21 06/28/21 Range/Units 14:45 07:27 07:27 WBC 6.53 (4.23-9.07) K/mm3 RBC 5.06 (4.63-6.08) M/mm3 Hgb 13.3 L (13.7-17.5) gm/dl Hct 41.1 (40.1-51.0) % MCV 81.2 (79.0-92.2) fl MCH 26.3 (25.7-32.2) pg MCHC 32.4 (32.2-35.5) g/dl RDW Std Deviation 41.7 (35.1-43.9) fL Plt Count 188 (163-337) K/mm3 MPV 11.6 (9.4-12.3) fl Neut % (Auto) 87.7 H (34.0-67.9) % Lymph % (Auto) 9.2 L (21.8-53.1) % [place] % (Auto) 2.6 L (5.3-12.2) % Eos % (Auto) 0 L (0.8-7.0) Baso % (Auto) 0.2 (0.1-1.2) % Neut # (Auto) 5.73 H (1.78-5.38) K/mm3 Lymph # (Auto) 0.60 L (1.32-3.57) K/mm3 [place] # (Auto) 0.17 L (0.30-0.82) K/mm3 Eos # (Auto) 0.00 L (0.04-0.54) K/mm3 Baso # (Auto) 0.01 (0.01-0.08) K/mm3 Manual Slide Review Normal smear Sodium 135 L (136-145) mEq/L Potassium 3.5 (3.5-5.1) mEq/L Chloride 98 (98-107) mEq/L Carbon Dioxide 25 (21-32) mEq/L Anion Gap 15.5 H (5-15) BUN 34 H (7-18) mg/dL Creatinine 1.0 (0.7-1.3) mg/dL Est Cr Clr Drug Dosing 111.15 mL/min Estimated GFR (MDRD) > 60 (>60) mL/min BUN/Creatinine Ratio 34.0 H (14-18) Glucose 160 H (70-99) mg/dL Calcium 8.4 L (8.5-10.1) mg/dL Phosphorus 4.6 (2.6-4.7) mg/dL Magnesium 2.7 H (1.8-2.4) mg/dL Total Bilirubin 0.4 (0.2-1.0) mg/dL AST 59 H (15-37) U/L ALT 35 (16-63) U/L Alkaline Phosphatase 75 (46-116) U/L C-Reactive Protein 4.3 H* (<1.0) mg/dL Total Protein 7.0 (6.4-8.2) g/dl Albumin 2.7 L (3.4-5.0) g/dl Globulin 4.3 gm/dL Albumin/Globulin Ratio 0.6 L (1-2) Procalcitonin 0.16 H ng/mL Med Orders - Current: Current Medications Acetaminophen (Acetaminophen 325 Mg Tab) 650 mg PO Q4H PRN PRN Reason: Pain (Mild 1-3)/fever Last Admin: 06/26/21 18:03 Dose: 650 mg Documented by: Albuterol/Ipratropium (Albuterol/Ipratropium 3.0-0.5 Mg/3 Ml Neb Soln) 3 ml NEB Q4H PRN PRN Reason: Shortness Of Breath/wheezing Last Admin: 06/28/21 09:52 Dose: 3 ml Documented by: Benzonatate (Benzonatate 100 Mg Cap) 200 mg PO Q8H PRN PRN Reason: Cough Dexamethasone (Dexamethasone 4 Mg Tab) 6 mg PO Q24H [facility] Stop: 07/05/21 21:01 Last Admin: 06/27/21 21:48 Dose: 6 mg Documented by: Enoxaparin Sodium (Enoxaparin 40 Mg/0.4 Ml Syringe) 40 mg SUBCUT Q24H [facility] Last Admin: 06/27/21 21:48 Dose: 40 mg Documented by: Remdesivir 100 mg/ Sodium (Chloride) 100 mls @ 100 mls/hr IV Q24H [facility] Stop: 06/30/21 16:44 Last Admin: 06/27/21 15:51 Dose: 100 mls/hr Documented by: Ondansetron HCl (Ondansetron 4 Mg/2 Ml Sdv) 4 mg IV Q6H PRN PRN Reason: Nausea/Vomiting Polyethylene Glycol (Polyethylene Glycol 3350 Powder 17 Gm Packet) 17 gm PO D AILY PRN PRN Reason: Constipation Sodium Chloride (Sodium Chloride 0.9% 10 Ml Syringe) 10 ml FLUSH ASDIRECTED PRN PRN Reason: Keep Vein Open Last Admin: 06/26/21 14:59 Dose: 10 ml Documented by: Discontinued Medications Dexamethasone (Dexamethasone 4 Mg Tab) 6 mg PO DAILY [facility] Stop: 07/05/21 09:01 Last Admin: 06/26/21 17:42 Dose: Not Given Documented by: Enoxaparin Sodium (Enoxaparin 40 Mg/0.4 Ml Syringe) 40 mg SUBCUT DAILY [facility] Last Admin: 06/26/21 17:42 Dose: Not Given Documented by: Remdesivir 200 mg/ Sodium (Chloride) 250 mls @ 250 mls/hr IV ONETIME ONE Stop: 06/26/21 15:44 Last Admin: 06/26/21 17:11 Dose: 250 mls/hr Documented by: Influenza Virus Vaccine (Pharmacy To Dose - Influenza Vaccine) 1 each IM ONETIME ONE Stop: 06/26/21 17:17 Influenza Virus Vaccine (Flu Vacc [id number] 36mos Up/Pf 60 Mcg/0.5 Ml Syringe) 60 mcg IM .ONCE ONE Stop: 06/26/21 17:31 - Exam Quality Assessment: Supplemental Oxygen General: Alert, Oriented HEENT: Pupils Equal, Mucous Membr. Moist/[place] Neck: Supple Lungs: Decreased Breath Sounds, Crackles (Throughout both lung [place]). No: Normal Respiratory Effort (Increased respiratory rate) Cardiovascular: Regular Rate, Regular Rhythm GI/Abdominal Exam: Normal Bowel Sounds, Soft, Non-Tender, No Distention (Morbidly obese) Extremities: Normal Inspection, No Pedal Edema, Normal Capillary Refill Skin: Warm, Dry, Intact Psy/Mental Status: Alert - Patient Data Lab Results Last 24 hrs: Laboratory Results - last 24 hr 06/26/21 06/28/21 06/28/21 Range/Units 14:45 07:27 07:27 WBC 6.53 (4.23-9.07) K/mm3 RBC 5.06 (4.63-6.08) M/mm3 Hgb 13.3 L (13.7-17.5) gm/dl Hct 41.1 (40.1-51.0) % MCV 81.2 (79.0-92.2) fl MCH 26.3 (25.7-32.2) pg MCHC 32.4 (32.2-35.5) g/dl RDW Std Deviation 41.7 (35.1-43.9) fL Plt Count 188 (163-337) K/mm3 MPV 11.6 (9.4-12.3) fl Neut % (Auto) 87.7 H (34.0-67.9) % Lymph % (Auto) 9.2 L (21.8-53.1) % [place] % (Auto) 2.6 L (5.3-12.2) % Eos % (Auto) 0 L (0.8-7.0) Baso % (Auto) 0.2 (0.1-1.2) % Neut # (Auto) 5.73 H (1.78-5.38) K/mm3 Lymph # (Auto) 0.60 L (1.32-3.57) K/mm3 [place] # (Auto) 0.17 L (0.30-0.82) K/mm3 Eos # (Auto) 0.00 L (0.04-0.54) K/mm3 Baso # (Auto) 0.01 (0.01-0.08) K/mm3 Manual Slide Review Normal smear Sodium 135 L (136-145) mEq/L Potassium 3.5 (3.5-5.1) mEq/L Chloride 98 (98-107) mEq/L Carbon Dioxide 25 (21-32) mEq/L Anion Gap 15.5 H (5-15) BUN 34 H (7-18) mg/dL Creatinine 1.0 (0.7-1.3) mg/dL Est Cr Clr Drug Dosing 111.15 mL/min Estimated GFR (MDRD) > 60 (>60) mL/min BUN/Creatinine Ratio 34.0 H (14-18) Glucose 160 H (70-99) mg/dL Calcium 8.4 L (8.5-10.1) mg/dL Phosphorus 4.6 (2.6-4.7) mg/dL Magnesium 2.7 H (1.8-2.4) mg/dL Total Bilirubin 0.4 (0.2-1.0) mg/dL AST 59 H (15-37) U/L ALT 35 (16-63) U/L Alkaline Phosphatase 75 (46-116) U/L C-Reactive Protein 4.3 H* (<1.0) mg/dL Total Protein 7.0 (6.4-8.2) g/dl Albumin 2.7 L (3.4-5.0) g/dl Globulin 4.3 gm/dL Albumin/Globulin Ratio 0.6 L (1-2) Procalcitonin 0.16 H ng/mL Result Diagrams: 06/28/21 07:27 06/28/21 07:27 Sepsis Event Note - Evaluation Sepsis Screening Result: No Definite Risk - Focused Exam Vital Signs: Vital Signs Temp Pulse Resp BP Pulse Ox Pulse Ox Pulse Ox 06/28/21 10:09 87 L 06/28/21 09:52 87 L 06/28/21 09:11 97.2 F 85 22 H 130/65 88 L 06/28/21 04:08 96.8 F L 74 24 H 121/43 L 90 L 06/28/21 01:51 79 115/44 L 06/28/21 01:50 96.8 F L 78 20 91 L - Problem List & Annotations (1) Hypoxia SNOMED Code(s): 994452935 Code(s): R09.02 - HYPOXEMIA Status: Acute Current Visit: Yes (2) Pneumonia due to COVID-19 virus SNOMED Code(s): 721323451803091602 Code(s): U07.1 - COVID-19; J12.82 - PNEUMONIA DUE TO CORONAVIRUS DISEASE 2019 Status: Acute Current Visit: Yes - Problem List Review Problem List Initiated/Reviewed/Updated: Yes - My Orders Last 24 Hours: My Active Orders 06/27/21 15:45 Remdesivir 100 mg Sodium Chloride 0.9% [Normal Saline] 100 ml IV Q24H 06/29/21 05:11 C-REACTIVE PROTEIN [CHEM] AM CBC WITH AUTO DIFF [HEME] AM CMP [COMPREHENSIVE METABOLIC PN,CMP] [CHEM] AM MAGNESIUM [CHEM] AM PHOSPHORUS [CHEM] AM 06/30/21 05:11 C-REACTIVE PROTEIN [CHEM] AM CBC WITH AUTO DIFF [HEME] AM CMP [COMPREHENSIVE METABOLIC PN,CMP] [CHEM] AM MAGNESIUM [CHEM] AM PHOSPHORUS [CHEM] AM 07/01/21 05:11 C-REACTIVE PROTEIN [CHEM] AM CBC WITH AUTO DIFF [HEME] AM CMP [COMPREHENSIVE METABOLIC PN,CMP] [CHEM] AM MAGNESIUM [CHEM] AM PHOSPHORUS [CHEM] AM - Plan Plan:: 25-year-old morbidly obese male with COVID-19 pneumonia and hypoxemia. COVID-19 pneumonia with hypoxiadeteriorated * On high flow nasal cannula at 60 L and 90% FiO2 * Did not receive vaccination * WBC 6.5, CRP 4.3, procalcitonin of 0.16 * Creatinine improved to 1.0, BUN is slightly higher at 34 * Decrease sense of smell and taste with poor appetite * Chest x-ray from day of admission showed diffuse increased density within both sides of the chest suspicious for diffuse Covid pneumonia * No findings suggestive of bacterial pneumonia Plan * Admit to medical floor with strict isolation * Remdesivir, dexamethasone * Baricitinib 4 mg daily for up to 14 days * Continue high flow to keep SPO2 between 88 and 94% * Follow daily CBC, CMP, mag, CRP for the first 5 days * D-dimers in a.m. * RT consult. * I-S * Encourage quality food including protein intake * Encourage proning * Lovenox 40 mg subcu for VTE prophylaxis * CODE STATUS full code Because of his significant worsening in oxygen saturations over the last 12 hours I recommended baricitinib. I spoke with Mayco to provide information about baricitinib. I offered the "fax sheet for patients and parents/caregivers, for baricitinib" to read and review. I stated that therapy has been approved by an emergency use authorization process and has not fully been FDA reviewed or approved. I shared potential risks from the therapy including increased risk for serious infections, anaphylaxis, and reaction to medication. I discussed there are other potential treatment options that are currently not FDA approved to treat COVID-19. Offered opportunity to ask questions and all questions were answered. Mayco voiced understanding and agreed to proceed with treatment.
[2021-06-28] MEDS: REMDESIVIR 100 MG in Sodium Chloride 0.9% 100 ML IV SCH (15:32)
[2021-06-28] MEDS: Enoxaparin 40 MG/0.4 ML Syringe SUBCUT SCH (20:01)
[2021-06-28] MEDS: Dexamethasone 4 MG Tab PO SCH (20:02)
[2021-06-29] MEDS: Albuterol/Ipratropium 3.0-0.5 MG/3 ML Neb Soln NEB PRN ×3 (08:29→20:54)
--- NOTE | 2021-06-29 10:06 | PCM.PN ---
- General Info Date of Service: 06/29/21 Admission Dx/Problem (Free Text): COVID-19 positive test (U07.1, COVID-19) with Acute Pneumonia (J12.89, Other viral pneumonia) (If respiratory failure or sepsis present, add as separate assessment) Subjective Update: Patient has only marginal improvement overnight. He is acting a bit depressed and apathetic. He did have his grandfather recently of Covid. Functional Status: Reports: Pain Controlled - Review of Systems General: Reports: Fatigue HEENT: Reports: No Symptoms Pulmonary: Reports: Shortness of Breath, Cough Cardiovascular: Reports: No Symptoms Gastrointestinal: Reports: No Symptoms Neurological: Reports: No Symptoms Psychiatric: Reports: Depression - Patient Data Vitals - Most Recent: Last Vital Signs Temp 98.1 F 06/29/21 08:47 Pulse 81 06/29/21 08:47 Resp 20 06/29/21 08:47 BP 135/51 L 06/29/21 08:47 Pulse Ox 90 L 06/29/21 08:47 Weight - Most Recent: 249 lb 1.6 oz I&O - Last 24 Hours: Intake & Output 06/28/21 06/29/21 06/29/21 22:59 06:59 14:59 Intake Total 1340 900 Output Total 800 Balance 1340 100 Lab Results Last 24 Hours: Laboratory Results - last 24 hr 06/29/21 06/29/21 06/29/21 Range/Units 06:35 06:35 06:35 WBC 8.30 (4.23-9.07) K/mm3 RBC 5.01 (4.63-6.08) M/mm3 Hgb 13.6 L (13.7-17.5) gm/dl Hct 41.8 (40.1-51.0) % MCV 83.4 (79.0-92.2) fl MCH 27.1 (25.7-32.2) pg MCHC 32.5 (32.2-35.5) g/dl RDW Std Deviation 41.6 (35.1-43.9) fL Plt Count 215 (163-337) K/mm3 MPV 11.5 (9.4-12.3) fl Neut % (Auto) 80.3 H (34.0-67.9) % Lymph % (Auto) 14.0 L (21.8-53.1) % Nolan % (Auto) 4.9 L (5.3-12.2) % Eos % (Auto) 0 L (0.8-7.0) Baso % (Auto) 0.6 (0.1-1.2) % Neut # (Auto) 6.66 H (1.78-5.38) K/mm3 Lymph # (Auto) 1.16 L (1.32-3.57) K/mm3 Nolan # (Auto) 0.41 (0.30-0.82) K/mm3 Eos # (Auto) 0.00 L (0.04-0.54) K/mm3 Baso # (Auto) 0.05 (0.01-0.08) K/mm3 Manual Slide Review Abnormal smear D-Dimer, Quantitative 2.19 H (0.19-0.50) mg/L Sodium 138 (136-145) mEq/L Potassium 3.8 (3.5-5.1) mEq/L Chloride 100 (98-107) mEq/L Carbon Dioxide 29 (21-32) mEq/L Anion Gap 12.8 (5-15) BUN 28 H (7-18) mg/dL Creatinine 0.9 (0.7-1.3) mg/dL Est Cr Clr Drug Dosing 123.50 mL/min Estimated GFR (MDRD) > 60 (>60) mL/min BUN/Creatinine Ratio 31.1 H (14-18) Glucose 156 H (70-99) mg/dL Calcium 8.4 L (8.5-10.1) mg/dL Phosphorus 4.6 (2.6-4.7) mg/dL Magnesium 2.6 H (1.8-2.4) mg/dL Total Bilirubin 0.4 (0.2-1.0) mg/dL AST 51 H (15-37) U/L ALT 42 (16-63) U/L Alkaline Phosphatase 79 (46-116) U/L C-Reactive Protein 1.7 H* (<1.0) mg/dL Total Protein 7.1 (6.4-8.2) g/dl Albumin 2.8 L (3.4-5.0) g/dl Globulin 4.3 gm/dL Albumin/Globulin Ratio 0.7 L (1-2) Med Orders - Current: Current Medications Acetaminophen (Acetaminophen 325 Mg Tab) 650 mg PO Q4H PRN PRN Reason: Pain (Mild 1-3)/fever Last Admin: 06/26/21 18:03 Dose: 650 mg Documented by: Albuterol/Ipratropium (Albuterol/Ipratropium 3.0-0.5 Mg/3 Ml Neb Soln) 3 ml NEB Q4H PRN PRN Reason: Shortness Of Breath/wheezing Last Admin: 06/29/21 08:29 Dose: 3 ml Documented by: Benzonatate (Benzonatate 100 Mg Cap) 200 mg PO Q8H PRN PRN Reason: Cough Dexamethasone (Dexamethasone 4 Mg Tab) 6 mg PO Q24H [facility] Stop: 07/05/21 21:01 Last Admin: 06/28/21 20:02 Dose: 6 mg Documented by: Enoxaparin Sodium (Enoxaparin 40 Mg/0.4 Ml Syringe) 40 mg SUBCUT Q24H [facility] Last Admin: 06/28/21 20:01 Dose: 40 mg Documented by: Remdesivir 100 mg/ Sodium (Chloride) 100 mls @ 100 mls/hr IV Q24H [facility] Stop: 06/30/21 16:44 Last Admin: 06/28/21 15:32 Dose: 100 mls/hr Documented by: Ondansetron HCl (Ondansetron 4 Mg/2 Ml Sdv) 4 mg IV Q6H PRN PRN Reason: Nausea/Vomiting Polyethylene Glycol (Polyethylene Glycol 3350 Powder 17 Gm Packet) 17 gm PO DAILY PRN PRN Reason: Constipation Sodium Chloride (Sodium Chloride 0.9% 10 Ml Syringe) 10 ml FLUSH ASDIRECTED PRN PRN Reason: Keep Vein Open Last Admin: 06/26/21 14:59 Dose: 10 ml Documented by: Discontinued Medications Dexamethasone (Dexamethasone 4 Mg Tab) 6 mg PO DAILY [facility] Stop: 07/05/21 09:01 Last Admin: 06/26/21 17:42 Dose: Not Given Documented by: Enoxaparin Sodium (Enoxaparin 40 Mg/0.4 Ml Syringe) 40 mg SUBCUT DAILY [facility] Last Admin: 06/26/21 17:42 Dose: Not Given Documented by: Remdesivir 200 mg/ Sodium (Chloride) 250 mls @ 250 mls/hr IV ONETIME ONE Stop: 06/26/21 15:44 Last Admin: 06/26/21 17:11 Dose: 250 mls/hr Documented by: Influenza Virus Vaccine (Pharmacy To Dose - Influenza Vaccine) 1 each IM ONETIME ONE Stop: 06/26/21 17:17 Influenza Virus Vaccine (Flu Vacc [id number] 36mos Up/Pf 60 Mcg/0.5 Ml Syringe) 60 mcg IM .ONCE ONE Stop: 06/26/21 17:31 - Exam Quality Assessment: Supplemental Oxygen (High flow nasal cannula) General: Alert, Oriented HEENT: Pupils Equal, Mucous Membr. Moist/[place] Neck: Supple Lungs: Crackles (Bibasilar). No: Normal Respiratory Effort (Increased rate and effort) Cardiovascular: Regular Rate, Regular Rhythm GI/Abdominal Exam: Normal Bowel Sounds, Soft, Non-Tender, No Distention Extremities: Normal Inspection, Non-Tender, No Pedal Edema, Normal Capillary Refill Skin: Warm, Dry, Intact Psy/Mental Status: Alert, Normal Affect, Normal Mood - Patient Data Lab Results Last 24 hrs: Laboratory Results - last 24 hr 06/29/21 06/29/21 06/29/21 Range/Units 06:35 06:35 06:35 WBC 8.30 (4.23-9.07) K/mm3 RBC 5.01 (4.63-6.08) M/mm3 Hgb 13.6 L (13.7-17.5) gm/dl Hct 41.8 (40.1-51.0) % MCV 83.4 (79.0-92.2) fl MCH 27.1 (25.7-32.2) pg MCHC 32.5 (32.2-35.5) g/dl RDW Std Deviation 41.6 (35.1-43.9) fL Plt Count 215 (163-337) K/mm3 MPV 11.5 (9.4-12.3) fl Neut % (Auto) 80.3 H (34.0-67.9) % Lymph % (Auto) 14.0 L (21.8-53.1) % Nolan % (Auto) 4.9 L (5.3-12.2) % Eos % (Auto) 0 L (0.8-7.0) Baso % (Auto) 0.6 (0.1-1.2) % Neut # (Auto) 6.66 H (1.78-5.38) K/mm3 Lymph # (Auto) 1.16 L (1.32-3.57) K/mm3 Nolan # (Auto) 0.41 (0.30-0.82) K/mm3 Eos # (Auto) 0.00 L (0.04-0.54) K/mm3 Baso # (Auto) 0.05 (0.01-0.08) K/mm3 Manual Slide Review Abnormal smear D-Dimer, Quantitative 2.19 H (0.19-0.50) mg/L Sodium 138 (136-145) mEq/L Potassium 3.8 (3.5-5.1) mEq/L Chloride 100 (98-107) mEq/L Carbon Dioxide 29 (21-32) mEq/L Anion Gap 12.8 (5-15) BUN 28 H (7-18) mg/dL Creatinine 0.9 (0.7-1.3) mg/dL Est Cr Clr Drug Dosing 123.50 mL/min Estimated GFR (MDRD) > 60 (>60) mL/min BUN/Creatinine Ratio 31.1 H (14-18) Glucose 156 H (70-99) mg/dL Calcium 8.4 L (8.5-10.1) mg/dL Phosphorus 4.6 (2.6-4.7) mg/dL Magnesium 2.6 H (1.8-2.4) mg/dL Total Bilirubin 0.4 (0.2-1.0) mg/dL AST 51 H (15-37) U/L ALT 42 (16-63) U/L Alkaline Phosphatase 79 (46-116) U/L C-Reactive Protein 1.7 H* (<1.0) mg/dL Total Protein 7.1 (6.4-8.2) g/dl Albumin 2.8 L (3.4-5.0) g/dl Globulin 4.3 gm/dL Albumin/Globulin Ratio 0.7 L (1-2) Result Diagrams: 06/29/21 06:35 06/29/21 06:35 Sepsis Event Note - Evaluation Sepsis Screening Result: No Definite Risk - Focused Exam Vital Signs: Vital Signs Temp Pulse Resp BP Pulse Ox Pulse Ox 06/29/21 08:47 98.1 F 81 20 135/51 L 90 L 06/29/21 08:30 94 L 06/29/21 04:08 98.2 F 78 15 115/50 L 95 06/29/21 00:00 93 L - Problem List & Annotations (1) Hypoxia SNOMED Code(s): 892193494 Code(s): R09.02 - HYPOXEMIA Status: Acute Current Visit: Yes (2) Pneumonia due to COVID-19 virus SNOMED Code(s): 263282390263058922 Code(s): U07.1 - COVID-19; J12.82 - PNEUMONIA DUE TO CORONAVIRUS DISEASE 2019 Status: Acute Current Visit: Yes - Problem List Review Problem List Initiated/Reviewed/Updated: Yes - My Orders Last 24 Hours: My Active Orders 06/28/21 11:15 Baricitinib [Olumiant] 4 mg PO DAILY 06/30/21 05:11 C-REACTIVE PROTEIN [CHEM] AM CBC WITH AUTO DIFF [HEME] AM CMP [COMPREHENSIVE METABOLIC PN,CMP] [CHEM] AM MAGNESIUM [CHEM] AM PHOSPHORUS [CHEM] AM 07/01/21 05:11 C-REACTIVE PROTEIN [CHEM] AM CBC WITH AUTO DIFF [HEME] AM CMP [COMPREHENSIVE METABOLIC PN,CMP] [CHEM] AM MAGNESIUM [CHEM] AM PHOSPHORUS [CHEM] AM - Plan Plan:: 25-year-old morbidly obese male with COVID-19 pneumonia and hypoxemia. COVID-19 pneumonia with hypoxiadeteriorated * On high flow nasal cannula at 60 L and 90% FiO2 * Did not receive vaccination * WBC 6.5, CRP 4.3, procalcitonin of 0.16 * Creatinine improved to 1.0, BUN is slightly higher at 34 * Decrease sense of smell and taste with poor appetite * Chest x-ray from day of admission showed diffuse increased density within both sides of the chest suspicious for diffuse Covid pneumonia * No findings suggestive of bacterial pneumonia 06/29/2021 WBC 8.3, D-dimer 2.19 (essentially the same as previous), creatinine 0.9 with estimated GFR greater than 60, CRP decreased to 1.7, AST 51, ALT 42, albumin 2.8. High flow nasal cannula 60 L and 90% FiO2. Mayco appears more apathetic and possibly depressed and we may consider psychiatry consult. Plan * Admit to medical floor with strict isolation * Remdesivir, dexamethasone * Baricitinib 4 mg daily for up to 14 days * Continue high flow to keep SPO2 between 88 and 94% * Follow daily CBC, CMP, mag, CRP for the first 5 days * D-dimers in a.m. * RT consult. * I-S * Encourage quality food including protein intake * Encourage proning * Lovenox 40 mg subcu for VTE prophylaxis * CODE STATUS full code Because of his significant worsening in oxygen saturations over the last 12 hours I recommended baricitinib. I spoke with Mayco to provide information about baricitinib. I offered the "fax sheet for patients and parents/caregivers, for baricitinib" to read and review. I stated that therapy has been approved by an emergency use authorization process and has not fully been FDA reviewed or approved. I shared potential risks from the therapy including increased risk for serious infections, anap hylaxis, and reaction to medication. I discussed there are other potential treatment options that are currently not FDA approved to treat COVID-19. Offered opportunity to ask questions and all questions were answered. Mayco voiced understanding and agreed to proceed with treatment.
[2021-06-29] MEDS: REMDESIVIR 100 MG in Sodium Chloride 0.9% 100 ML IV SCH (15:42)
[2021-06-29] MEDS: Dexamethasone 4 MG Tab PO SCH (22:11)
[2021-06-29] MEDS: Enoxaparin 40 MG/0.4 ML Syringe SUBCUT SCH (22:12)
--- NOTE | 2021-06-30 08:11 | PCM.PN ---
- General Info Date of Service: 06/30/21 Admission Dx/Problem (Free Text): COVID-19 positive test (U07.1, COVID-19) with Acute Pneumonia (J12.89, Other viral pneumonia) (If respiratory failure or sepsis present, add as separate assessment) Functional Status: Reports: Pain Controlled, Tolerating Diet, Ambulating, Urinating, Incentive Spirometry. Denies: New Symptoms - Review of Systems General: Reports: No Symptoms. Denies: Fever, Weakness, Fatigue, Malaise, Chills HEENT: Reports: No Symptoms. Denies: Headaches, Sore Throat Pulmonary: Reports: Shortness of Breath, Cough. Denies: Pleuritic Chest Pain, Sputum Cardiovascular: Reports: Dyspnea on Exertion. Denies: Chest Pain, Palpitations, Edema Gastrointestinal: Reports: No Symptoms. Denies: Abdominal Pain, Constipation, Diarrhea, Nausea, Vomiting Genitourinary: Reports: No Symptoms. Denies: Pain Musculoskeletal: Reports: No Symptoms Skin: Reports: No Symptoms. Denies: Cyanosis Neurological: Reports: No Symptoms. Denies: Confusion, Dizziness, Headache, Numbness, Paresthesia, Pre-Existing Deficit, Seizure, Syncope, Tingling, Tremors, Difficulty Walking, Weakness, Gait Disturbance Psychiatric: Reports: No Symptoms - Patient Data Vitals - Most Recent: Last Vital Signs Temp 97.7 F 06/30/21 05:46 Pulse 68 06/30/21 05:46 Resp 24 H 06/30/21 05:46 BP 118/56 L 06/30/21 05:46 Pulse Ox 95 06/30/21 05:46 Weight - Most Recent: 249 lb 1.6 oz I&O - Last 24 Hours: Intake & Output 06/29/21 06/30/21 06/30/21 22:59 06:59 14:59 Intake Total 920 1100 Output Total 300 Balance 920 800 Lab Results Last 24 Hours: Laboratory Results - last 24 hr 06/30/21 06/30/21 Range/Units 06:29 06:29 WBC 10.89 H (4.23-9.07) K/mm3 RBC 5.10 (4.63-6.08) M/mm3 Hgb 13.6 L (13.7-17.5) gm/dl Hct 42.3 (40.1-51.0) % MCV 82.9 (79.0-92.2) fl MCH 26.7 (25.7-32.2) pg MCHC 32.2 (32.2-35.5) g/dl RDW Std Deviation 40.9 (35.1-43.9) fL Plt Count 250 (163-337) K/mm3 MPV 11.3 (9.4-12.3) fl Neut % (Auto) 87.8 H (34.0-67.9) % Lymph % (Auto) 7.8 L (21.8-53.1) % Rankin % (Auto) 3.9 L (5.3-12.2) % Eos % (Auto) 0 L (0.8-7.0) Baso % (Auto) 0.1 (0.1-1.2) % Neut # (Auto) 9.57 H (1.78-5.38) K/mm3 Lymph # (Auto) 0.85 L (1.32-3.57) K/mm3 Rankin # (Auto) 0.42 (0.30-0.82) K/mm3 Eos # (Auto) 0.00 L (0.04-0.54) K/mm3 Baso # (Auto) 0.01 (0.01-0.08) K/mm3 Manual Slide Review Normal smear Sodium 138 (136-145) mEq/L Potassium 4.1 (3.5-5.1) mEq/L Chloride 102 (98-107) mEq/L Carbon Dioxide 28 (21-32) mEq/L Anion Gap 12.1 (5-15) BUN 23 H (7-18) mg/dL Creatinine 1.0 (0.7-1.3) mg/dL Est Cr Clr Drug Dosing 111.15 mL/min Estimated GFR (MDRD) > 60 (>60) mL/min BUN/Creatinine Ratio 23.0 H (14-18) Glucose 146 H (70-99) mg/dL Calcium 8.3 L (8.5-10.1) mg/dL Phosphorus 5.3 H (2.6-4.7) mg/dL Magnesium 2.5 H (1.8-2.4) mg/dL Total Bilirubin 0.6 (0.2-1.0) mg/dL AST 112 H (15-37) U/L ALT 128 H (16-63) U/L Alkaline Phosphatase 89 (46-116) U/L C-Reactive Protein 0.8 (<1.0) mg/dL Total Protein 7.1 (6.4-8.2) g/dl Albumin 2.8 L (3.4-5.0) g/dl Globulin 4.3 gm/dL Albumin/Globulin Ratio 0.7 L (1-2) Med Orders - Current: Current Medications Acetaminophen (Acetaminophen 325 Mg Tab) 650 mg PO Q4H PRN PRN Reason: Pain (Mild 1-3)/fever Last Admin: 06/26/21 18:03 Dose: 650 mg Documented by: Albuterol/Ipratropium (Albuterol/Ipratropium 3.0-0.5 Mg/3 Ml Neb Soln) 3 ml NEB Q4H PRN PRN Reason: Shortness Of Breath/wheezing Last Admin: 06/29/21 20:54 Dose: 3 ml Documented by: Benzonatate (Benzonatate 100 Mg Cap) 200 mg PO Q8H PRN PRN Reason: Cough Dexamethasone (Dexamethasone 4 Mg Tab) 6 mg PO Q24H [facility] Stop: 07/05/21 21:01 Last Admin: 06/29/21 22:11 Dose: 6 mg Documented by: Enoxaparin Sodium (Enoxaparin 40 Mg/0.4 Ml Syringe) 40 mg SUBCUT Q24H [facility] Last Admin: 06/29/21 22:12 Dose: 40 mg Documented by: Remdesivir 100 mg/ Sodium (Chloride) 100 mls @ 100 mls/hr IV Q24H [facility] Stop: 06/30/21 16:44 Last Admin: 06/29/21 15:42 Dose: 100 mls/hr Documented by: Ondansetron HCl (Ondansetron 4 Mg/2 Ml Sdv) 4 mg IV Q6H PRN PRN Reason: Nausea/Vomiting Polyethylene Glycol (Polyethylene Glycol 3350 Powder 17 Gm Packet) 17 gm PO DAILY PRN PRN Reason: Constipation Sodium Chloride (Sodium Chloride 0.9% 10 Ml Syringe) 10 ml FLUSH ASDIRECTED PRN PRN Reason: Keep Vein Open Last Admin: 06/26/21 14:59 Dose: 10 ml Documented by: Discontinued Medications Dexamethasone (Dexamethasone 4 Mg Tab) 6 mg PO DAILY [facility] Stop: 07/05/21 09:01 Last Admin: 06/26/21 17:42 Dose: Not Given Documented by: Enoxaparin Sodium (Enoxaparin 40 Mg/0.4 Ml Syringe) 40 mg SUBCUT DAILY [facility] Last Admin: 06/26/21 17:42 Dose: Not Given Documented by: Remdesivir 200 mg/ Sodium (Chloride) 250 mls @ 250 mls/hr IV ONETIME ONE Stop: 06/26/21 15:44 Last Admin: 06/26/21 17:11 Dose: 250 mls/hr Documented by: Influenza Virus Vaccine (Pharmacy To Dose - Influenza Vaccine) 1 each IM ONETIME ONE Stop: 06/26/21 17:17 Influenza Virus Vaccine (Flu Vacc [id number] 36mos Up/Pf 60 Mcg/0.5 Ml Syringe) 60 mcg IM .ONCE ONE Stop: 06/26/21 17:31 - Exam Quality Assessment: Supplemental Oxygen (High flow - 60L with FiO2 of 80%), DVT Prophylaxis. No: Urine Catheter General: Alert, Oriented, Cooperative, No Acute Distress HEENT: Pupils Equal, Pupils Reactive, Mucous Membr. Moist/[place] Neck: Supple, Trachea Midline Lungs: Decreased Breath Sounds, Crackles. No: Normal Respiratory Effort (Tachypnea ) Cardiovascular: Regular Rate, Regular Rhythm GI/Abdominal Exam: Normal Bowel Sounds, Soft, Non-Tender, No Distention (Male) Exam: Deferred Back Exam: Normal Inspection, Full Range of Motion Extremities: Normal Inspection, Normal Range of Motion, Non-Tender, No Pedal Edema, Normal Capillary Refill Peripheral Pulses: 2+: Radial (L), Radial (R), Dorsalis Pedis (L), Dorsalis Pedis (R) Skin: Warm, Dry, Intact Neurological: No New Focal Deficit Psy/Mental Status: Alert, Normal Affect, Normal Mood - Patient Data Lab Results Last 24 hrs: Laboratory Results - last 24 hr 06/30/21 06/30/21 Range/Units 06:29 06:29 WBC 10.89 H (4.23-9.07) K/mm3 RBC 5.10 (4.63-6.08) M/mm3 Hgb 13.6 L (13.7-17.5) gm/dl Hct 42.3 (40.1-51.0) % MCV 82.9 (79.0-92.2) fl MCH 26.7 (25.7-32.2) pg MCHC 32.2 (32.2-35.5) g/dl RDW Std Deviation 40.9 (35.1-43.9) fL Plt Count 250 (163-337) K/mm3 MPV 11.3 (9.4-12.3) fl Neut % (Auto) 87.8 H (34.0-67.9) % Lymph % (Auto) 7.8 L (21.8-53.1) % Rankin % (Auto) 3.9 L (5.3-12.2) % Eos % (Auto) 0 L (0.8-7.0) Baso % (Auto) 0.1 (0.1-1.2) % Neut # (Auto) 9.57 H (1.78-5.38) K/mm3 Lymph # (Auto) 0.85 L (1.32-3.57) K/mm3 Rankin # (Auto) 0.42 (0.30-0.82) K/mm3 Eos # (Auto) 0.00 L (0.04-0.54) K/mm3 Baso # (Auto) 0.01 (0.01-0.08) K/mm3 Manual Slide Review Normal smear Sodium 138 (136-145) mEq/L Potassium 4.1 (3.5-5.1) mEq/L Chloride 102 (98-107) mEq/L Carbon Dioxide 28 (21-32) mEq/L Anion Gap 12.1 (5-15) BUN 23 H (7-18) mg/dL Creatinine 1.0 (0.7-1.3) mg/dL Est Cr Clr Drug Dosing 111.15 mL/min Estimated GFR (MDRD) > 60 (>60) mL/min BUN/Creatinine Ratio 23.0 H (14-18) Glucose 146 H (70-99) mg/dL Calcium 8.3 L (8.5-10.1) mg/dL Phosphorus 5.3 H (2.6-4.7) mg/dL Magnesium 2.5 H (1.8-2.4) mg/dL Total Bilirubin 0.6 (0.2-1.0) mg/dL AST 112 H (15-37) U/L ALT 128 H (16-63) U/L Alkaline Phosphatase 89 (46-116) U/L C-Reactive Protein 0.8 (<1.0) mg/dL Total Protein 7.1 (6.4-8.2) g/dl Albumin 2.8 L (3.4-5.0) g/dl Globulin 4.3 gm/dL Albumin/Globulin Ratio 0.7 L (1-2) Result Diagrams: 06/30/21 06:29 06/30/21 06:29 Sepsis Event Note - Evaluation Sepsis Screening Result: No Definite Risk - Focused Exam Vital Signs: Vital Signs Temp Pulse Resp BP Pulse Ox Pulse Ox 06/30/21 05:46 97.7 F 68 24 H 118/56 L 95 06/30/21 04:00 94 L 06/29/21 22:09 98.1 F 24 H 123/51 L 06/29/21 20:54 96 - Problem List & Annotations (1) Hypoxia SNOMED Code(s): 039689686 Code(s): R09.02 - HYPOXEMIA Status: Acute Priority: High Current Visit: Yes (2) Pneumonia due to COVID-19 virus SNOMED Code(s): 728057905807839648 Code(s): U07.1 - COVID-19; J12.82 - PNEUMONIA DUE TO CORONAVIRUS DISEASE 2019 Status: Acute Priority: High Current Visit: Yes (3) Obesity SNOMED Code(s): 748325905, [id number] Code(s): E66.9 - OBESITY, UNSPECIFIED Status: Chronic Priority: Medium Current Visit: No Qualifiers: Obesity type: unspecified obesity type Obesity classification: adult class 2 (BMI 35 - 39.9) Serious obesity comorbidity presence: without serious comor bidity Body mass index: BMI 37.0-37.9 Qualified Code(s): E66.9 - Obesity, unspecified; Z68.37 - Body mass index [BMI] 37.0-37.9, adult - Problem List Review Problem List Initiated/Reviewed/Updated: Yes - My Orders Last 24 Hours: My Active Orders 07/01/21 05:11 DD [D-DIMER QUANTITATIVE] [COAG] Q48H 07/03/21 05:11 DD [D-DIMER QUANTITATIVE] [COAG] Q48H 07/05/21 05:11 DD [D-DIMER QUANTITATIVE] [COAG] Q48H - Plan Plan:: 25-year-old morbidly obese male with COVID-19 pneumonia and hypoxemia. COVID-19 pneumonia with hypoxiadeteriorated * On high flow nasal cannula at 60 L and 90% FiO2 * Did not receive vaccination * WBC 6.53, CRP 4.3, procalcitonin of 0.16 * Creatinine improved to 1.0, BUN is slightly increased at 34 * Decrease sense of smell and taste with poor appetite * Chest x-ray from day of admission showed diffuse increased density within both sides of the chest suspicious for diffuse Covid pneumonia * No findings suggestive of bacterial pneumonia 06/29/2021 WBC 8.3, D-dimer 2.19 (essentially the same as previous), creatinine 0.9 with estimated GFR greater than 60, CRP decreased to 1.7, AST 51, ALT 42, albumin 2.8. High flow nasal cannula 60 L and 90% FiO2. Mayco appears more apathetic and possibly depressed and we may consider psychiatry consult. 06/30/2021 Remains on 60 L oxygen with an FiO2 of 80% via high flow. Labs today showed increased WBC of 10.89, likely steroid related. Platelets are 250,000. Neutrophils are elevated 87.8%. Sodium is 138. Potassium 4.1. BUN is down to 23. Creatinine 1.0. GFR greater than 60. Phosphorus is up to 5.3. Magnesium is down to 2.5.. Total bilirubin 0.6. AST is 112, ALT 128, alkaline phosphatase 89. We will continue to monitor this. CRP is down to 0.8. Patient will receive his last dose of remdesivir today. Continue baricitinib and dexamethasone. We will recheck labs in the morning. Plan * Admit to medical floor with strict isolation * Remdesivir - last dose today, dexamethasone * Baricitinib 4 mg daily for up to 14 days * Continue high flow to keep SPO2 between 88 and 94% * Follow daily CBC, CMP, mag, CRP for the first 5 days * D-dimers Q48H * RT consult. * I-S * Encourage quality food including protein intake * Encourage proning * Lovenox 40 mg subcu for VTE prophylaxis * CODE STATUS full code Because of his significant worsening in oxygen saturations over the last 12 hours I recommended baricitinib. I spoke with Mayco to provide information about baricitinib. I offered the "fax sheet for patients and parents/caregivers, for baricitinib" to read and review. I stated that therapy has been approved by an emergency use authorization process and has not fully been FDA reviewed or approved. I shared potential risks from the therapy including increased risk for serious infections, anaphylaxis, and reaction to medication. I discussed there are other potential treatment options that are currently not FDA approved to treat COVID-19. Offered opportunity to ask questions and all questions were answered. Mayco voiced understanding and agreed to proceed with treatment.
[2021-06-30] MEDS: Albuterol/Ipratropium 3.0-0.5 MG/3 ML Neb Soln NEB PRN ×2 (08:47→14:48)
[2021-06-30] MEDS: REMDESIVIR 100 MG in Sodium Chloride 0.9% 100 ML IV SCH (15:01)
[2021-06-30] MEDS: Dexamethasone 4 MG Tab PO SCH (20:12)
[2021-06-30] MEDS: Enoxaparin 40 MG/0.4 ML Syringe SUBCUT SCH (20:13)
[2021-07-01] MEDS: Albuterol/Ipratropium 3.0-0.5 MG/3 ML Neb Soln NEB PRN ×2 (06:10→20:24)
--- NOTE | 2021-07-01 07:07 | PCM.PN ---
- General Info Date of Service: 07/01/21 Admission Dx/Problem (Free Text): COVID-19 positive test (U07.1, COVID-19) with Acute Pneumonia (J12.89, Other viral pneumonia) (If respiratory failure or sepsis present, add as separate assessment) Functional Status: Reports: Pain Controlled, Tolerating Diet, Ambulating, Urinating, Incentive Spirometry. Denies: New Symptoms - Review of Systems General: Reports: No Symptoms. Denies: Fever, Weakness, Fatigue, Malaise, Chills HEENT: Reports: No Symptoms. Denies: Headaches, Sore Throat Pulmonary: Reports: Shortness of Breath, Cough, Sputum (occasional). Denies: Wheezing Cardiovascular: Reports: Dyspnea on Exertion. Denies: Chest Pain, Palpitations, Lightheadedness Gastrointestinal: Denies: Abdominal Pain, Constipation, Diarrhea, Nausea, Vomiting Genitourinary: Reports: No Symptoms. Denies: Pain Musculoskeletal: Reports: No Symptoms Skin: Reports: No Symptoms. Denies: Cyanosis Neurological: Reports: No Symptoms. Denies: Confusion, Dizziness, Headache, Numbness, Pre-Existing Deficit, Seizure, Syncope, Tingling, Difficulty Walking, Weakness, Gait Disturbance Psychiatric: Reports: No Symptoms - Patient Data Vitals - Most Recent: Last Vital Signs Temp 99.0 F 07/01/21 01:01 Pulse 77 07/01/21 01:01 Resp 22 H 07/01/21 01:01 BP 117/53 L 07/01/21 01:01 Pulse Ox 100 07/01/21 06:10 Weight - Most Recent: 249 lb 9.6 oz I&O - Last 24 Hours: Intake & Output 06/30/21 07/01/21 07/01/21 22:59 06:59 14:59 Intake Total 900 1400 Balance 900 1400 Lab Results Last 24 Hours: Laboratory Results - last 24 hr 06/30/21 06/30/21 07/01/21 Range/Units 06:29 06:29 06:15 WBC 8.95 (4.23-9.07) K/mm3 RBC 4.55 L (4.63-6.08) M/mm3 Hgb 12.6 L (13.7-17.5) gm/dl Hct 38.6 L (40.1-51.0) % MCV 84.8 (79.0-92.2) fl MCH 27.7 (25.7-32.2) pg MCHC 32.6 (32.2-35.5) g/dl RDW Std Deviation 40.7 (35.1-43.9) fL Plt Count 241 (163-337) K/mm3 MPV 11.1 (9.4-12.3) fl Neut % (Auto) 91.1 H (34.0-67.9) % Lymph % (Auto) 6.4 L (21.8-53.1) % Lake % (Auto) 1.9 L (5.3-12.2) % Eos % (Auto) 0.2 L (0.8-7.0) Baso % (Auto) 0.0 L (0.1-1.2) % Neut # (Auto) 8.15 H (1.78-5.38) K/mm3 Lymph # (Auto) 0.57 L (1.32-3.57) K/mm3 Lake # (Auto) 0.17 L (0.30-0.82) K/mm3 Eos # (Auto) 0.02 L (0.04-0.54) K/mm3 Baso # (Auto) 0.00 L (0.01-0.08) K/mm3 Manual Slide Review Normal smear Sodium 138 (136-145) mEq/L Potassium 4.1 (3.5-5.1) mEq/L Chloride 102 (98-107) mEq/L Carbon Dioxide 28 (21-32) mEq/L Anion Gap 12.1 (5-15) BUN 23 H (7-18) mg/dL Creatinine 1.0 (0.7-1.3) mg/dL Est Cr Clr Drug Dosing 111.15 mL/min Estimated GFR (MDRD) > 60 (>60) mL/min BUN/Creatinine Ratio 23.0 H (14-18) Glucose 146 H (70-99) mg/dL Calcium 8.3 L (8.5-10.1) mg/dL Phosphorus 5.3 H (2.6-4.7) mg/dL Magnesium 2.5 H (1.8-2.4) mg/dL Total Bilirubin 0.6 (0.2-1.0) mg/dL AST 112 H (15-37) U/L ALT 128 H (16-63) U/L Alkaline Phosphatase 89 (46-116) U/L C-Reactive Protein 0.8 (<1.0) mg/dL Total Protein 7.1 (6.4-8.2) g/dl Albumin 2.8 L (3.4-5.0) g/dl Globulin 4.3 gm/dL Albumin/Globulin Ratio 0.7 L (1-2) Med Orders - Current: Current Medications Acetaminophen (Acetaminophen 325 Mg Tab) 650 mg PO Q4H PRN PRN Reason: Pain (Mild 1-3)/fever Last Admin: 06/26/21 18:03 Dose: 650 mg Documented by: Albuterol/Ipratropium (Albuterol/Ipratropium 3.0-0.5 Mg/3 Ml Neb Soln) 3 ml NEB Q4H PRN PRN Reason: Shortness Of Breath/wheezing Last Admin: 07/01/21 06:10 Dose: 3 ml Documented by: Benzonatate (Benzonatate 100 Mg Cap) 200 mg PO Q8H PRN PRN Reason: Cough Dexamethasone (Dexamethasone 4 Mg Tab) 6 mg PO Q24H [facility] Stop: 07/05/21 21:01 Last Admin: 06/30/21 20:12 Dose: 6 mg Documented by: Enoxaparin Sodium (Enoxaparin 40 Mg/0.4 Ml Syringe) 40 mg SUBCUT Q24H [facility] Last Admin: 06/30/21 20:13 Dose: 40 mg Documented by: Ondansetron HCl (Ondansetron 4 Mg/2 Ml Sdv) 4 mg IV Q6H PRN PRN Reason: Nausea/Vomiting Polyethylene Glycol (Polyethylene Glycol 3350 Powder 17 Gm Packet) 17 gm PO DAILY PRN PRN Reason: Constipation Sodium Chloride (Sodium Chloride 0.9% 10 Ml Syringe) 10 ml FLUSH ASDIRECTED PRN PRN Reason: Keep Vein Open Last Admin: 06/26/21 14:59 Dose: 10 ml Documented by: Discontinued Medications Dexamethasone (Dexamethasone 4 Mg Tab) 6 mg PO DAILY [facility] Stop: 07/05/21 09:01 Last Admin: 06/26/21 17:42 Dose: Not Given Documented by: Enoxaparin Sodium (Enoxaparin 40 Mg/0.4 Ml Syringe) 40 mg SUBCUT DAILY [facility] Last Admin: 06/26/21 17:42 Dose: Not Given Documented by: Remdesivir 200 mg/ Sodium (Chloride) 250 mls @ 250 mls/hr IV ONETIME ONE Stop: 06/26/21 15:44 Last Admin: 06/26/21 17:11 Dose: 250 mls/hr Documented by: Remdesivir 100 mg/ Sodium (Chloride) 100 mls @ 100 mls/hr IV Q24H [facility] Stop: 06/30/21 16:44 Last Admin: 06/30/21 15:01 Dose: 100 mls/hr Documented by: Influenza Virus Vaccine (Pharmacy To Dose - Influenza Vaccine) 1 each IM ONETIME ONE Stop: 06/26/21 17:17 Influenza Virus Vaccine (Flu Vacc [id number] 36mos Up/Pf 60 Mcg/0.5 Ml Syringe) 60 mcg IM .ONCE ONE Stop: 06/26/21 17:31 - Exam Quality Assessment: Supplemental Oxygen (High flow 50 L at 70% FiO2), DVT Prophylaxis. No: Urine Catheter General: Alert, Oriented, Cooperative, No Acute Distress HEENT: Pupils Equal, Pupils Reactive, Mucous Membr. Moist/[place] Neck: Supple, Trachea Midline Lungs: Normal Respiratory Effort, Decreased Breath Sounds, Crackles (Bibasilar). No: Wheezing Cardiovascular: Regular Rate, Regular Rhythm GI/Abdominal Exam: Normal Bowel Sounds, Soft, Non-Tender, No Distention, No Abnormal Bruit (Male) Exam: Deferred Back Exam: Normal Inspection, Full Range of Motion Extremities: Normal Inspection, Normal Range of Motion, Non-Tender, No Pedal Edema, Normal Capillary Refill Peripheral Pulses: 2+: Radial (L), Radial (R), Femoral (L), Dorsalis Pedis (L), Dorsalis Pedis (R) Skin: Warm, Dry, Intact Neurological: No New Focal Deficit Psy/Mental Status: Alert, Normal Affect, Normal Mood - Patient Data Lab Results Last 24 hrs: Laboratory Results - last 24 hr 06/30/21 06/30/21 07/01/21 Range/Units 06:29 06:29 06:15 WBC 8.95 (4.23-9.07) K/mm3 RBC 4.55 L (4.63-6.08) M/mm3 Hgb 12.6 L (13.7-17.5) gm/dl Hct 38.6 L (40.1-51.0) % MCV 84.8 (79.0-92.2) fl MCH 27.7 (25.7-32.2) pg MCHC 32.6 (32.2-35.5) g/dl RDW Std Deviation 40.7 (35.1-43.9) fL Plt Count 241 (163-337) K/mm3 MPV 11.1 (9.4-12.3) fl Neut % (Auto) 91.1 H (34.0-67.9) % Lymph % (Auto) 6.4 L (21.8-53.1) % Lake % (Auto) 1.9 L (5.3-12.2) % Eos % (Auto) 0.2 L (0.8-7.0) Baso % (Auto) 0.0 L (0.1-1.2) % Neut # (Auto) 8.15 H (1.78-5.38) K/mm3 Lymph # (Auto) 0.57 L (1.32-3.57) K/mm3 Lake # (Auto) 0.17 L (0.30-0.82) K/mm3 Eos # (Auto) 0.02 L (0.04-0.54) K/mm3 Baso # (Auto) 0.00 L (0.01-0.08) K/mm3 Manual Slide Review Normal smear Sodium 138 (136-145) mEq/L Potassium 4.1 (3.5-5.1) mEq/L Chloride 102 (98-107) mEq/L Carbon Dioxide 28 (21-32) mEq/L Anion Gap 12.1 (5-15) BUN 23 H (7-18) mg/dL Creatinine 1.0 (0.7-1.3) mg/dL Est Cr Clr Drug Dosing 111.15 mL/min Estimated GFR (MDRD) > 60 (>60) mL/min BUN/Creatinine Ratio 23.0 H (14-18) Glucose 146 H (70-99) mg/dL Calcium 8.3 L (8.5-10.1) mg/dL Phosphorus 5.3 H (2.6-4.7) mg/dL Magnesium 2.5 H (1.8-2.4) mg/dL Total Bilirubin 0.6 (0.2-1.0) mg/dL AST 112 H (15-37) U/L ALT 128 H (16-63) U/L Alkaline Phosphatase 89 (46-116) U/L C-Reactive Protein 0.8 (<1.0) mg/dL Total Protein 7.1 (6.4-8.2) g/dl Albumin 2.8 L (3.4-5.0) g/dl Globulin 4.3 gm/dL Albumin/Globulin Ratio 0.7 L (1-2) Result Diagrams: 07/01/21 06:15 07/01/21 06:15 Sepsis Event Note - Evaluation Sepsis Screening Result: No Definite Risk - Focused Exam Vital Signs: Vital Signs Temp Pulse Resp BP Pulse Ox Pulse Ox 07/01/21 06:10 100 07/01/21 01:01 99.0 F 77 22 H 117/53 L 97 06/30/21 20:15 63 101/58 L 100 06/30/21 20:11 100.8 F H 72 24 H 97/57 L 100 - Problem List & Annotations (1) Hypoxia SNOMED Code(s): 252964012 Code(s): R09.02 - HYPOXEMIA Status: Acute Priority: High Current Visit: Yes (2) Pneumonia due to COVID-19 virus SNOMED Code(s): 662206374475826682 Code(s): U07.1 - COVID-19; J12.82 - PNEUMONIA DUE TO CORONAVIRUS DISEASE 2019 Status: Acute Priority: High Current Visit: Yes (3) Obesity SNOMED Code(s): 992454017, 001657575 Code(s): E66.9 - OBESITY, UNSPECIFIED Status: Chronic Priority: Medium Current Visit: No Qualifiers: Obesity type: unspecified obesity type Obesity classification: adult class 2 (BMI 35 - 39.9) Serious obesity comorbidity presence: without serious comorbidity Body mass index: BMI 37.0-37.9 Qualified Code(s): E66.9 - Obesity, unspecified; Z68.37 - Body mass index [BMI] 37.0-37.9, adult (4) Elevated d-dimer SNOMED Code(s): 543697355 Code(s): R79.89 - OTHER SPECIFIED ABNORMAL FINDINGS OF BLOOD CHEMISTRY Status: Acute Priority: High Current Visit: Yes - Problem List Review Problem List Initiated/Reviewed/Updated: Yes - My Orders Last 24 Hours: My Active Orders 07/01/21 06:15 DD [D-DIMER QUANTITATIVE] [COAG] Q48H 07/03/21 05:11 DD [D-DIMER QUANTITATIVE] [COAG] Q48H 07/05/21 05:11 DD [D-DIMER QUANTITATIVE] [COAG] Q48H - Plan Plan:: 25-year-old morbidly obese male with COVID-19 pneumonia and hypoxemia. COVID-19 pneumonia with hypoxiadeteriorated * On high flow nasal cannula at 60 L and 90% FiO2 * Did not receive vaccination * WBC 6.53, CRP 4.3, procalcitonin of 0.16 * Creatinine improved to 1.0, BUN is slightly increased at 34 * Decrease sense of smell and taste with poor appetite * Chest x-ray from day of admission showed diffuse increased density within both sides of the chest suspicious for diffuse Covid pneumonia * No findings suggestive of bacterial pneumonia 06/29/2021 WBC 8.3, D-dimer 2.19 (essentially the same as previous), creatinine 0.9 with estimated GFR greater than 60, CRP decreased to 1.7, AST 51, ALT 42, albumin 2.8. High flow nasal cannula 60 L and 90% FiO2. Mayco appears more apathetic and possibly depressed and we may consider psychiatry consult. 06/30/2021 Remains on 60 L oxygen with an FiO2 of 80% via high flow. Labs today showed increased WBC of 10.89, likely steroid related. Platelets are 250,000. Neutrophils are elevated 87.8%. Sodium is 138. Potassium 4.1. BUN is down to 23. Creatinine 1.0. GFR greater than 60. Phosphorus is up to 5.3. Magnesium is down to 2.5.. Total bilirubin 0.6. AST is 112, ALT 128, alkaline phosphatase 89. We will continue to monitor this. CRP is down to 0.8. Patient will receive his last dose of remdesivir today. Continue baricitinib and dexamethasone. We will recheck labs in the morning. 07/01/2021 Patient currently on 50 L with FiO2 of 70% high flow. Overnight patient was requiring 60 L with FiO2 of 90%. Patient did note he had a coughing episode. WBC is back to 8.95. Hemoglobin is 12.6. Platelets are 241,000. D-dimer increased to 9.04 as below. Electrolytes remain grossly stable and phosphorus is down to 1.4. Magnesium is 2.4. GFR remains greater than 60. Bilirubin 0.6. AST is 51, ALT is 124, alkaline phosphatase 88. CRP is up to 4.4. Albumin is down to 2.6. Patient completed remdesivir and remains on day 6 of dexamethasone and day 5 of baricitinib. Elevated D-Dimer * Significant increase on 07/01/2021 * 2.06-->2.19-->9.04 * High flow increased overnight * CTA ordered - negative for PE * Lower extremity US ordered to R/O DVT * Start Lovenox 1mg/kg BID Plan * Admit to medical floor with strict isolation * Remdesivir completed * dexamethasone * Baricitinib 4 mg daily for up to 14 days * Continue high flow to keep SPO2 between 88 and 94% * Follow daily CBC, CMP, mag, CRP for the first 5 days * D-dimers Q48H * RT consult. * I-S * Encourage quality food including protein intake * Encourage proning * Lovenox 40 mg subcu for VTE prophylaxis * CODE STATUS full code Because of his significant worsening in oxygen saturations over the last 12 hours I recommended baricitinib. I spoke with Mayco to provide information about baricitinib. I offered the "fax sheet for patients and parents/caregivers, for baricitinib" to read and review. I stated that therapy has been approved by an emergency use authorization process and has not fully been FDA reviewed or approved. I shared potential risks from the therapy including increased risk for serious infections, anaphylaxis, and reaction to medication. I discussed there are other potential treatment options that are currently not FDA approved to treat COVID-19. Offered opportunity to ask questions and all questions were answered. Mayco voiced understanding and agreed to proceed with treatment.
[2021-07-01] MEDS ORDERED: Iopamidol 755 Mg/ML 100 ML Bottle IVPUSH ONE (08:02)
[2021-07-01] MEDS ORDERED: Sodium Chloride 0.9% 10 ML Syringe FLUSH PRN (08:02)
[2021-07-01] MEDS ORDERED: Sodium Chloride 0.9% 100 ML IV SCH (08:15)
--- NOTE | 2021-07-01 09:18 | CT ---
CT chest Technique: Multiple axial sections through the chest were obtained. Intravenous contrast was utilized. Study was performed as a pulmonary angiogram protocol. Comparison: Prior chest x-ray of 06/26/21, no prior chest CT is available. Findings: Pulmonary arteries are moderately well opacified. No filling defects are seen to indicate pulmonary embolism. Thoracic aorta shows no aneurysm. Multiple lymph nodes are seen within the mediastinum most likely reactive from the pulmonary process. No pericardial thickening is seen. Visualized upper abdominal structures show no acute abnormality. Lung window settings show very prominent areas of increased density throughout both sides of the chest. No pleural effusions are seen. Bone window settings were reviewed. Several slight compression deformities are seen within the mid and lower thoracic spine which are most likely old or developmental. No acute osseous finding is seen. Impression: 1. Slight compression deformities within the mid and lower thoracic spine either old or developmental. 2. No findings of pulmonary embolism are seen. 3. Severe increased density within both sides of the chest compatible with severe COVID pneumonia. Diagnostic code #3
[2021-07-01] MEDS: Enoxaparin 120 MG/0.8 ML Syringe SUBCUT SCH ×2 (09:35→20:18)
--- NOTE | 2021-07-01 15:25 | US ---
Bilateral lower extremity deep venous ultrasound: Duplex and color Doppler evaluation was obtained of the right and left common femoral, proximal greater saphenous, superficial femoral, popliteal, posterior tibial and peroneal veins. Comparison: No prior venous imaging is available. Findings: Visualized veins show normal phasic flow, augmentation and compression. Impression: 1. No findings of deep venous thrombosis within the right or left lower extremities. Diagnostic code #1
[2021-07-01] MEDS: Dexamethasone 4 MG Tab PO SCH (20:17)
--- NOTE | 2021-07-02 07:48 | PCM.PN ---
- General Info Date of Service: 07/02/21 Admission Dx/Problem (Free Text): COVID-19 positive test (U07.1, COVID-19) with Acute Pneumonia (J12.89, Other viral pneumonia) (If respiratory failure or sepsis present, add as separate assessment) Functional Status: Reports: Pain Controlled, Tolerating Diet, Ambulating, Urinating, Incentive Spirometry. Denies: New Symptoms - Review of Systems General: Reports: No Symptoms, Fatigue. Denies: Fever, Weakness, Malaise, Chills HEENT: Reports: No Symptoms. Denies: Headaches, Sore Throat Pulmonary: Reports: Shortness of Breath, Cough (minimal), Sputum. Denies: Wheezing Cardiovascular: Reports: No Symptoms, Dyspnea on Exertion. Denies: Chest Pain, Palpitations, Edema, Lightheadedness Gastrointestinal: Reports: No Symptoms. Denies: Abdominal Pain, Constipation, Diarrhea, Nausea, Vomiting Genitourinary: Reports: No Symptoms. Denies: Pain Musculoskeletal: Reports: No Symptoms Skin: Reports: No Symptoms. Denies: Cyanosis Neurological: Reports: No Symptoms. Denies: Confusion, Dizziness, Headache, Num bness, Pre-Existing Deficit, Seizure, Syncope, Tingling, Difficulty Walking, Weakness, Gait Disturbance Psychiatric: Reports: No Symptoms - Patient Data Vitals - Most Recent: Last Vital Signs Temp 98.4 F 07/02/21 05:07 Pulse 74 07/02/21 05:07 Resp 24 H 07/02/21 05:07 BP 116/63 07/02/21 05:07 Pulse Ox 96 07/02/21 05:07 Weight - Most Recent: 248 lb 12.8 oz I&O - Last 24 Hours: Intake & Output 07/01/21 07/02/21 07/02/21 22:59 06:59 14:59 Intake Total 1400 700 Balance 1400 700 Lab Results Last 24 Hours: Laboratory Results - last 24 hr 07/01/21 07/01/21 07/02/21 Range/Units 06:15 06:15 06:12 WBC 8.22 (4.23-9.07) K/mm3 RBC 5.17 (4.63-6.08) M/mm3 Hgb 13.7 (13.7-17.5) gm/dl Hct 42.9 (40.1-51.0) % MCV 83.0 (79.0-92.2) fl MCH 26.5 (25.7-32.2) pg MCHC 31.9 L (32.2-35.5) g/dl RDW Std Deviation 41.6 (35.1-43.9) fL Plt Count 261 (163-337) K/mm3 MPV 10.8 (9.4-12.3) fl Neut % (Auto) 88.6 H (34.0-67.9) % Lymph % (Auto) 7.9 L (21.8-53.1) % [place] % (Auto) 1.9 L (5.3-12.2) % Eos % (Auto) 0 L (0.8-7.0) Baso % (Auto) 0.1 (0.1-1.2) % Neut # (Auto) 7.28 H (1.78-5.38) K/mm3 Lymph # (Auto) 0.65 L (1.32-3.57) K/mm3 [place] # (Auto) 0.16 L (0.30-0.82) K/mm3 Eos # (Auto) 0.00 L (0.04-0.54) K/mm3 Baso # (Auto) 0.01 (0.01-0.08) K/mm3 Manual Slide Review Abnormal smear D-Dimer, Quantitative 9.04 H (0.19-0.50) mg/L Sodium (136-145) mEq/L Potassium (3.5-5.1) mEq/L Chloride (98-107) mEq/L Carbon Dioxide (21-32) mEq/L Anion Gap (5-15) BUN (7-18) mg/dL Creatinine (0.7-1.3) mg/dL Est Cr Clr Drug Dosing mL/min Estimated GFR (MDRD) (>60) mL/min BUN/Creatinine Ratio (14-18) Glucose (70-99) mg/dL Calcium (8.5-10.1) mg/dL Magnesium (1.8-2.4) mg/dL Total Bilirubin (0.2-1.0) mg/dL AST (15-37) U/L ALT (16-63) U/L Alkaline Phosphatase (46-116) U/L C-Reactive Protein (<1.0) mg/dL Total Protein (6.4-8.2) g/dl Albumin (3.4-5.0) g/dl Globulin gm/dL Albumin/Globulin Ratio (1-2) 07/02/21 Range/Units 06:12 WBC (4.23-9.07) K/mm3 RBC (4.63-6.08) M/mm3 Hgb (13.7-17.5) gm/dl Hct (40.1-51.0) % MCV (79.0-92.2) fl MCH (25.7-32.2) pg MCHC (32.2-35.5) g/dl RDW Std Deviation (35.1-43.9) fL Plt Count (163-337) K/mm3 MPV (9.4-12.3) fl Neut % (Auto) (34.0-67.9) % Lymph % (Auto) (21.8-53.1) % [place] % (Auto) (5.3-12.2) % Eos % (Auto) (0.8-7.0) Baso % (Auto) (0.1-1.2) % Neut # (Auto) (1.78-5.38) K/mm3 Lymph # (Auto) (1.32-3.57) K/mm3 [place] # (Auto) (0.30-0.82) K/mm3 Eos # (Auto) (0.04-0.54) K/mm3 Baso # (Auto) (0.01-0.08) K/mm3 Manual Slide Review D-Dimer, Quantitative (0.19-0.50) mg/L Sodium 138 (136-145) mEq/L Potassium 4.5 (3.5-5.1) mEq/L Chloride 103 (98-107) mEq/L Carbon Dioxide 27 (21-32) mEq/L Anion Gap 12.5 (5-15) BUN 17 (7-18) mg/dL Creatinine 0.9 (0.7-1.3) mg/dL Est Cr Clr Drug Dosing 123.50 mL/min Estimated GFR (MDRD) > 60 (>60) mL/min BUN/Creatinine Ratio 18.9 H (14-18) Glucose 151 H (70-99) mg/dL Calcium 8.5 (8.5-10.1) mg/dL Magnesium 2.6 H (1.8-2.4) mg/dL Total Bilirubin 0.5 (0.2-1.0) mg/dL AST 33 (15-37) U/L ALT 86 H (16-63) U/L Alkaline Phosphatase 85 (46-116) U/L C-Reactive Protein 10.9 H* (<1.0) mg/dL Total Protein 7.3 (6.4-8.2) g/dl Albumin 2.7 L (3.4-5.0) g/dl Globulin 4.6 gm/dL Albumin/Globulin Ratio 0.6 L (1-2) Med Orders - Current: Current Medications Acetaminophen (Acetaminophen 325 Mg Tab) 650 mg PO Q4H PRN PRN Reason: Pain (Mild 1-3)/fever Last Admin: 06/26/21 18:03 Dose: 650 mg Documented by: Albuterol/Ipratropium (Albuterol/Ipratropium 3.0-0.5 Mg/3 Ml Neb Soln) 3 ml NEB Q4H PRN PRN Reason: Shortness Of Breath/wheezing Last Admin: 07/01/21 20:24 Dose: 3 ml Documented by: Baricitinib (Baricitinib 2 Mg Tab) 4 mg PO DAILY MELLISA Stop: 07/11/21 09:01 Last Admin: 07/01/21 09:35 Dose: 4 mg Documented by: Benzonatate (Benzonatate 100 Mg Cap) 200 mg PO Q8H PRN PRN Reason: Cough Dexamethasone (Dexamethasone 4 Mg Tab) 6 mg PO Q24H MELLISA Stop: 07/05/21 21:01 Last Admin: 07/01/21 20:17 Dose: 6 mg Documented by: Enoxaparin Sodium (Enoxaparin 120 Mg/0.8 Ml Syringe) 120 mg SUBCUT Q12H MELLISA Last Admin: 07/01/21 20:18 Dose: 120 mg Documented by: Ondansetron HCl (Ondansetron 4 Mg/2 Ml Sdv) 4 mg IV Q6H PRN PRN Reason: Nausea/Vomiting Polyethylene Glycol (Polyethylene Glycol 3350 Powder 17 Gm Packet) 17 gm PO DAILY PRN PRN Reason: Constipation Sodium Chloride (Sodium Chloride 0.9% 10 Ml Syringe) 10 ml FLUSH ASDIRECTED PRN PRN Reason: Keep Vein Open Last Admin: 06/26/21 14:59 Dose: 10 ml Documented by: Discontinued Medications Dexamethasone (Dexamethasone 4 Mg Tab) 6 mg PO DAILY [facility] Stop: 07/05/21 09:01 Last Admin: 06/26/21 17:42 Dose: Not Given Documented by: Enoxaparin Sodium (Enoxaparin 40 Mg/0.4 Ml Syringe) 40 mg SUBCUT DAILY [facility] Last Admin: 06/26/21 17:42 Dose: Not Given Documented by: Enoxaparin Sodium (Enoxaparin 40 Mg/0.4 Ml Syringe) 40 mg SUBCUT Q24H [facility] Last Admin: 06/30/21 20:13 Dose: 40 mg Documented by: Remdesivir 200 mg/ Sodium (Chloride) 250 mls @ 250 mls/hr IV ONETIME ONE Stop: 06/26/21 15:44 Last Admin: 06/26/21 17:11 Dose: 250 mls/hr Documented by: Remdesivir 100 mg/ Sodium (Chloride) 100 mls @ 100 mls/hr IV Q24H MELLISA Stop: 06/30/21 16:44 Last Admin: 06/30/21 15:01 Dose: 100 mls/hr Documented by: Sodium Chloride (Normal Saline) 100 mls @ 75 mls/hr IV ASDIRECTED [facility] Stop: 07/01/21 12:00 Last Admin: 07/01/21 08:41 Dose: 75 mls/hr Documented by: Influenza Virus Vaccine (Pharmacy To Dose - Influenza Vaccine) 1 each IM ONETIME ONE Stop: 06/26/21 17:17 Influenza Virus Vaccine (Flu Vacc [id number] 36mos Up/Pf 60 Mcg/0.5 Ml Syringe) 60 mcg IM .ONCE ONE Stop: 06/26/21 17:31 Iopamidol (Iopamidol 755 Mg/Ml 100 Ml Bottle) 100 ml IVPUSH ONETIME ONE Stop: 07/01/21 08:03 Last Admin: 07/01/21 08:40 Dose: 100 ml Documented by: Sodium Chloride (Sodium Chloride 0.9% 10 Ml Syringe) 10 ml FLUSH ONETIME PRN PRN Reason: IV FLUSH Stop: 07/01/21 18:00 Last Admin: 07/01/21 08:40 Dose: 10 ml Documented by: - Exam Quality Assessment: Supplemental Oxygen (High flow 50 L 80% FiO2), DVT Prophylaxis General: Alert, Oriented, Cooperative, No Acute Distress HEENT: Pupils Equal, Pupils Reactive, Mucous Membr. Moist/[place] Neck: Supple, Trachea Midline Lungs: Decreased Breath Sounds, Crackles. No: Normal Respiratory Effort (Tachypnea), Rhonchi, Wheezing Cardiovascular: Regular Rate, Regular Rhythm GI/Abdominal Exam: Normal Bowel Sounds, Soft, Non-Tender, No Distention (Male) Exam: Deferred Back Exam: Normal Inspection, Full Range of Motion Extremities: Normal Inspection, Normal Range of Motion, Non-Tender, No Pedal Edema, Normal Capillary Refill Peripheral Pulses: 2+: Radial (L), Radial (R), Dorsalis Pedis (L), Dorsalis Pedis (R) Skin: Warm, Dry, Intact Neurological: No New Focal Deficit Psy/Mental Status: Alert, Normal Affect, Normal Mood - Patient Data Lab Results Last 24 hrs: Laboratory Results - last 24 hr 07/01/21 07/01/21 07/02/21 Range/Units 06:15 06:15 06:12 WBC 8.22 (4.23-9.07) K/mm3 RBC 5.17 (4.63-6.08) M/mm3 Hgb 13.7 (13.7-17.5) gm/dl Hct 42.9 (40.1-51.0) % MCV 83.0 (79.0-92.2) fl MCH 26.5 (25.7-32.2) pg MCHC 31.9 L (32.2-35.5) g/dl RDW Std Deviation 41.6 (35.1-43.9) fL Plt Count 261 (163-337) K/mm3 MPV 10.8 (9.4-12.3) fl Neut % (Auto) 88.6 H (34.0-67.9) % Lymph % (Auto) 7.9 L (21.8-53.1) % [place] % (Auto) 1.9 L (5.3-12.2) % Eos % (Auto) 0 L (0.8-7.0) Baso % (Auto) 0.1 (0.1-1.2) % Neut # (Auto) 7.28 H (1.78-5.38) K/mm3 Lymph # (Auto) 0.65 L (1.32-3.57) K/mm3 [place] # (Auto) 0.16 L (0.30-0.82) K/mm3 Eos # (Auto) 0.00 L (0.04-0.54) K/mm3 Baso # (Auto) 0.01 (0.01-0.08) K/mm3 Manual Slide Review Abnormal smear D-Dimer, Quantitative 9.04 H (0.19-0.50) mg/L Sodium (136-145) mEq/L Potassium (3.5-5.1) mEq/L Chloride (98-107) mEq/L Carbon Dioxide (21-32) mEq/L Anion Gap (5-15) BUN (7-18) mg/dL Creatinine (0.7-1.3) mg/dL Est Cr Clr Drug Dosing mL/min Estimated GFR (MDRD) (>60) mL/min BUN/Creatinine Ratio (14-18) Glucose (70-99) mg/dL Calcium (8.5-10.1) mg/dL Magnesium (1.8-2.4) mg/dL Total Bilirubin (0.2-1.0) mg/dL AST (15-37) U/L ALT (16-63) U/L Alkaline Phosphatase (46-116) U/L C-Reactive Protein (<1.0) mg/dL Total Protein (6.4-8.2) g/dl Albumin (3.4-5.0) g/dl Globulin gm/dL Albumin/Globulin Ratio (1-2) 07/02/21 Range/Units 06:12 WBC (4.23-9.07) K/mm3 RBC (4.63-6.08) M/mm3 Hgb (13.7-17.5) gm/dl Hct (40.1-51.0) % MCV (79.0-92.2) fl MCH (25.7-32.2) pg MCHC (32.2-35.5) g/dl RDW Std Deviation (35.1-43.9) fL Plt Count (163-337) K/mm3 MPV (9.4-12.3) fl Neut % (Auto) (34.0-67.9) % Lymph % (Auto) (21.8-53.1) % [place] % (Auto) (5.3-12.2) % Eos % (Auto) (0.8-7.0) Baso % (Auto) (0.1-1.2) % Neut # (Auto) (1.78-5.38) K/mm3 Lymph # (Auto) (1.32-3.57) K/mm3 [place] # (Auto) (0.30-0.82) K/mm3 Eos # (Auto) (0.04-0.54) K/mm3 Baso # (Auto) (0.01-0.08) K/mm3 Manual Slide Review D-Dimer, Quantitative (0.19-0.50) mg/L Sodium 138 (136-145) mEq/L Potassium 4.5 (3.5-5.1) mEq/L Chloride 103 (98-107) mEq/L Carbon Dioxide 27 (21-32) mEq/L Anion Gap 12.5 (5-15) BUN 17 (7-18) mg/dL Creatinine 0.9 (0.7-1.3) mg/dL Est Cr Clr Drug Dosing 123.50 mL/min Estimated GFR (MDRD) > 60 (>60) mL/min BUN/Creatinine Ratio 18.9 H (14-18) Glucose 151 H (70-99) mg/dL Calcium 8.5 (8.5-10.1) mg/dL Magnesium 2.6 H (1.8-2.4) mg/dL Total Bilirubin 0.5 (0.2-1.0) mg/dL AST 33 (15-37) U/L ALT 86 H (16-63) U/L Alkaline Phosphatase 85 (46-116) U/L C-Reactive Protein 10.9 H* (<1.0) mg/dL Total Protein 7.3 (6.4-8.2) g/dl Albumin 2.7 L (3.4-5.0) g/dl Globulin 4.6 gm/dL Albumin/Globulin Ratio 0.6 L (1-2) Result Diagrams: 07/02/21 06:12 07/02/21 06:12 Sepsis Event Note - Evaluation Sepsis Screening Result: No Definite Risk - Focused Exam Vital Signs: Vital Signs Temp Pulse Resp BP Pulse Ox Pulse Ox 07/02/21 05:07 98.4 F 74 24 H 116/63 96 10/12/21 20:26 87 L 07/01/21 20:25 85 L 07/01/21 20:19 99.7 F 96 24 H 112/48 L 86 L - Problem List & Annotations (1) Hypoxia SNOMED Code(s): 843119739 Code(s): R09.02 - HYPOXEMIA Status: Acute Priority: High Current Visit: Yes (2) Pneumonia due to COVID-19 virus SNOMED Code(s): 453799454464118282 Code(s): U07.1 - COVID-19; J12.82 - PNEUMONIA DUE TO CORONAVIRUS DISEASE 2019 Status: Acute Priority: High Current Visit: Yes (3) Obesity SNOMED Code(s): 080313254, 098479527 Code(s): E66.9 - OBESITY, UNSPECIFIED Status: Chronic Priority: Medium Current Visit: No Qualifiers: Obesity type: unspecified obesity type Obesity classification: adult class 2 (BMI 35 - 39.9) Serious obesity comorbidity presence: without serious comorbidity Body mass index: BMI 37.0-37.9 Qualified Code(s): E66.9 - Obesity, unspecified; Z68.37 - Body mass index [BMI] 37.0-37.9, adult (4) Elevated d-dimer SNOMED Code(s): 287480053 Code(s): R79.89 - OTHER SPECIFIED ABNORMAL FINDINGS OF BLOOD CHEMISTRY Status: Acute Priority: High Current Visit: Yes - Problem List Review Problem List Initiated/Reviewed/Updated: Yes - My Orders Last 24 Hours: My Active Orders 07/01/21 09:00 Enoxaparin [Lovenox] 120 mg SUBCUT Q12H 07/03/21 05:11 CBC WITH AUTO DIFF [HEME] AM CMP [COMPREHENSIVE METABOLIC PN,CMP] [CHEM] AM CRP [C-REACTIVE PROTEIN] [CHEM] AM DD [D-DIMER QUANTITATIVE] [COAG] Q48H MAGNESIUM [CHEM] AM 07/04/21 05:11 CBC WITH AUTO DIFF [HEME] AM CMP [COMPREHENSIVE METABOLIC PN,CMP] [CHEM] AM CRP [C-REACTIVE PROTEIN] [CHEM] AM MAGNESIUM [CHEM] AM 07/05/21 05:11 CBC WITH AUTO DIFF [HEME] AM CMP [COMPREHENSIVE METABOLIC PN,CMP] [CHEM] AM CRP [C-REACTIVE PROTEIN] [CHEM] AM DD [D-DIMER QUANTITATIVE] [COAG] Q48H MAGNESIUM [CHEM] AM - Plan Plan:: 25-year-old morbidly obese male with COVID-19 pneumonia and hypoxemia. COVID-19 pneumonia with hypoxiadeteriorated * On high flow nasal cannula at 60 L and 90% FiO2 * Did not receive vaccination * WBC 6.53, CRP 4.3, procalcitonin of 0.16 * Creatinine improved to 1.0, BUN is slightly increased at 34 * Decrease sense of smell and taste with poor appetite * Chest x-ray from day of admission showed diffuse increased density within both sides of the chest suspicious for diffuse Covid pneumonia * No findings suggestive of bacterial pneumonia 06/29/2021 WBC 8.3, D-dimer 2.19 (essentially the same as previous), creatinine 0.9 with estimated GFR greater than 60, CRP decreased to 1.7, AST 51, ALT 42, albumin 2.8. High flow nasal cannula 60 L and 90% FiO2. Mayco appears more apathetic and possibly depressed and we may consider psychiatry consult. 06/30/2021 Remains on 60 L oxygen with an FiO2 of 80% via high flow. Labs today showed increased WBC of 10.89, likely steroid related. Platelets are 250,000. Neutrophils are elevated 87.8%. Sodium is 138. Potassium 4.1. BUN is down to 23. Creatinine 1.0. GFR greater than 60. Phosphorus is up to 5.3. Magnesium is down to 2.5.. Total bilirubin 0.6. AST is 112, ALT 128, alkaline phosphatase 89. We will continue to monitor this. CRP is down to 0.8. Patient will receive his last dose of remdesivir today. Continue baricitinib and dexamethasone. We will recheck labs in the morning. 07/01/2021 Patient currently on 50 L with FiO2 of 70% high flow. Overnight patient was requiring 60 L with FiO2 of 90%. Patient did note he had a coughing episode. WBC is back to 8.95. Hemoglobin is 12.6. Platelets are 241,000. D-dimer increased to 9.04 as below. Electrolytes remain grossly stable and phosphorus is down to 1.4. Magnesium is 2.4. GFR remains greater than 60. Bilirubin 0.6. AST is 51, ALT is 124, alkaline phosphatase 88. CRP is up to 4.4. Albumin is down to 2.6. Patient completed remdesivir and remains on day 6 of dexametha sone and day 5 of baricitinib. 07/02/2021 Patient currently on 50 L 80% FiO2 but states he overall feels pretty good. WBC remains WNL at 8.22.. Neutrophils are elevated at 88.6%. Electrolytes good. GFR greater than 60. CRP is up to 10.9 today. We will send a procalcitonin. We will consider increasing steroid dosing. Completed remdesivir. Continues on baricitinib and dexamethasone Elevated D-Dimer * Significant increase on 07/01/2021 * 2.06-->2.19-->9.04 * High flow increased overnight * CTA ordered - negative for PE * Lower extremity US ordered to R/O DVT * Start Lovenox 1mg/kg BID 07/02/2021 Lower extremity ultrasound negative for DVT. CTA negative for PE as well. We will continue Lovenox 1 mg/kg twice daily until we see improvement for fear of hypercoagulable state. Plan * Admit to medical floor with strict isolation * Remdesivir completed * dexamethasone * Baricitinib 4 mg daily for up to 14 days * Continue high flow to keep SPO2 between 88 and 94% * Follow daily CBC, CMP, mag, CRP for the first 5 days * D-dimers Q48H * RT consult. * I-S * Encourage quality food including protein intake * Encourage proning * Lovenox 40 mg subcu for VTE prophylaxis * CODE STATUS full code Because of his significant worsening in oxygen saturations over the last 12 hours I recommended baricitinib. I spoke with Mayco to provide information about baricitinib. I offered the "fax sheet for patients and parents/caregivers, for baricitinib" to read and review. I stated that therapy has been approved by an emergency use authorization process and has not fully been FDA reviewed or approved. I shared potential risks from the therapy including increased risk for serious infections, anaphylaxis, and reaction to medication. I discussed there are other potential treatment options that are currently not FDA approved to treat COVID-19. Offered opportunity to ask questions and all questions were answered. Mayco voiced understanding and agreed to proceed with treatment.
[2021-07-02] MEDS: Enoxaparin 120 MG/0.8 ML Syringe SUBCUT SCH ×3 (09:11→20:02)
--- NOTE | 2021-07-02 12:39 | CR ---
Chest: Frontal view of the chest was obtained. Comparison: Prior chest CT study of 07/01/21 and chest x-ray of 06/26/21. Patchy areas of increased density are seen on both sides of the chest. Findings have increased from prior chest x-ray but appear fairly stable from prior chest CT. Heart size and mediastinum are within normal limits for technique. Bony structures appear within normal limits. Impression: 1. Diffuse increased density throughout both sides of the chest appearing fairly similar to prior chest CT study compatible with fairly prominent COVID pneumonia. Diagnostic code #3
[2021-07-02] MEDS: cefTRIAXone 2 GM in Sodium Chloride 0.9% 100 ML IV SCH (13:45)
[2021-07-02] MEDS: Azithromycin 250 MG Tab PO SCH (13:46)
[2021-07-02] MEDS: Dexamethasone 4 MG Tab PO SCH ×2 (19:47→20:02)
[2021-07-02] MEDS: Albuterol/Ipratropium 3.0-0.5 MG/3 ML Neb Soln NEB PRN (20:37)
--- NOTE | 2021-07-03 06:44 | PCM.PN ---
- General Info Date of Service: 07/03/21 Admission Dx/Problem (Free Text): COVID-19 positive test (U07.1, COVID-19) with Acute Pneumonia (J12.89, Other viral pneumonia) (If respiratory failure or sepsis present, add as separate assessment) Functional Status: Reports: Pain Controlled, Tolerating Diet, Ambulating, Urinating, Incentive Spirometry. Denies: New Symptoms - Review of Systems General: Reports: Weakness, Fatigue. Denies: Fever, Malaise, Chills HEENT: Reports: No Symptoms. Denies: Headaches, Sore Throat Pulmonary: Reports: Shortness of Breath, Cough, Sputum. Denies: Pleuritic Chest Pain, Wheezing Cardiovascular: Reports: Dyspnea on Exertion. Denies: Chest Pain, Palpitations, Lightheadedness Gastrointestinal: Reports: No Symptoms. Denies: Abdominal Pain, Constipation, Diarrhea, Nausea, Vomiting Genitourinary: Reports: No Symptoms. Denies: Pain Musculoskeletal: Reports: No Symptoms Skin: Reports: No Symptoms. Denies: Cyanosis Neurological: Reports: No Symptoms, Difficulty Walking. Denies: Confusion Psychiatric: Reports: No Symptoms - Patient Data Vitals - Most Recent: Last Vital Signs Temp 97.3 F 07/03/21 04:06 Pulse 72 07/03/21 04:06 Resp 26 H 07/03/21 04:06 BP 123/93 H 07/03/21 04:06 Pulse Ox 89 L 07/03/21 04:06 Weight - Most Recent: 244 lb 3.2 oz I&O - Last 24 Hours: Intake & Output 07/02/21 07/02/21 07/03/21 14:59 22:59 06:59 Intake Total 1210 800 Balance 1210 800 Lab Results Last 24 Hours: Laboratory Results - last 24 hr 07/02/21 07/02/21 Range/Units 06:12 08:26 Sodium 138 (136-145) mEq/L Potassium 4.5 (3.5-5.1) mEq/L Chloride 103 (98-107) mEq/L Carbon Dioxide 27 (21-32) mEq/L Anion Gap 12.5 (5-15) BUN 17 (7-18) mg/dL Creatinine 0.9 (0.7-1.3) mg/dL Est Cr Clr Drug Dosing 123.50 mL/min Estimated GFR (MDRD) > 60 (>60) mL/min BUN/Creatinine Ratio 18.9 H (14-18) Glucose 151 H (70-99) mg/dL Calcium 8.5 (8.5-10.1) mg/dL Magnesium 2.6 H (1.8-2.4) mg/dL Total Bilirubin 0.5 (0.2-1.0) mg/dL AST 33 (15-37) U/L ALT 86 H (16-63) U/L Alkaline Phosphatase 85 (46-116) U/L C-Reactive Protein 10.9 H* (<1.0) mg/dL Total Protein 7.3 (6.4-8.2) g/dl Albumin 2.7 L (3.4-5.0) g/dl Globulin 4.6 gm/dL Albumin/Globulin Ratio 0.6 L (1-2) Procalcitonin 0.10 H ng/mL Med Orders - Current: Current Medications Acetaminophen (Acetaminophen 325 Mg Tab) 650 mg PO Q4H PRN PRN Reason: Pain (Mild 1-3)/fever Last Admin: 06/26/21 18:03 Dose: 650 mg Documented by: Albuterol/Ipratropium (Albuterol/Ipratropium 3.0-0.5 Mg/3 Ml Neb Soln) 3 ml NEB Q4H PRN PRN Reason: Shortness Of Breath/wheezing Last Admin: 07/02/21 20:37 Dose: 3 ml Documented by: Azithromycin (Azithromycin 250 Mg Tab) 500 mg PO DAILY [facility] Stop: 07/04/21 09:01 Last Admin: 07/02/21 13:46 Dose: 500 mg Documented by: Baricitinib (Baricitinib 2 Mg Tab) 4 mg PO DAILY [facility] Stop: 07/11/21 09:01 Last Admin: 07/02/21 09:11 Dose: 4 mg Documented by: Benzonatate (Benzonatate 100 Mg Cap) 200 mg PO Q8H PRN PRN Reason: Cough Dexamethasone (Dexamethasone 4 Mg Tab) 6 mg PO BID [facility] Last Admin: 07/02/21 20:02 Dose: Not Given Documented by: Enoxaparin Sodium (Enoxaparin 120 Mg/0.8 Ml Syringe) 120 mg SUBCUT Q12H [facility] Last Admin: 07/02/21 20:02 Dose: Not Given Documented by: Ceftriaxone Sodium 2 gm/ (Sodium Chloride) 100 mls @ 200 mls/hr IV Q24H [facility] Last Admin: 07/02/21 13:45 Dose: 200 mls/hr Documented by: Ondansetron HCl (Ondansetron 4 Mg/2 Ml Sdv) 4 mg IV Q6H PRN PRN Reason: Nausea/Vomiting Polyethylene Glycol (Polyethylene Glycol 3350 Powder 17 Gm Packet) 17 gm PO DAILY PRN PRN Reason: Constipation Sodium Chloride (Sodium Chloride 0.9% 10 Ml Syringe) 10 ml FLUSH ASDIRECTED PRN PRN Reason: Keep Vein Open Last Admin: 06/26/21 14:59 Dose: 10 ml Documented by: Discontinued Medications Dexamethasone (Dexamethasone 4 Mg Tab) 6 mg PO DAILY [facility] Stop: 07/05/21 09:01 Last Admin: 06/26/21 17:42 Dose: Not Given Documented by: Dexamethasone (Dexamethasone 4 Mg Tab) 6 mg PO Q24H [facility] Stop: 07/05/21 21:01 Last Admin: 07/01/21 20:17 Dose: 6 mg Documented by: Enoxaparin Sodium (Enoxaparin 40 Mg/0.4 Ml Syringe) 40 mg SUBCUT DAILY [facility] Last Admin: 06/26/21 17:42 Dose: Not Given Documented by: Enoxaparin Sodium (Enoxaparin 40 Mg/0.4 Ml Syringe) 40 mg SUBCUT Q24H [facility] Last Admin: 06/30/21 20:13 Dose: 40 mg Documented by: Remdesivir 200 mg/ Sodium (Chloride) 250 mls @ 250 mls/hr IV ONETIME ONE Stop: 06/26/21 15:44 Last Admin: 06/26/21 17:11 Dose: 250 mls/hr Documented by: Remdesivir 100 mg/ Sodium (Chloride) 100 mls @ 100 mls/hr IV Q24H [facility] Stop: 06/30/21 16:44 Last Admin: 06/30/21 15:01 Dose: 100 mls/hr Documented by: Sodium Chloride (Normal Saline) 100 mls @ 75 mls/hr IV ASDIRECTED [facility] Stop: 07/01/21 12:00 Last Admin: 07/01/21 08:41 Dose: 75 mls/hr Documented by: Influenza Virus Vaccine (Pharmacy To Dose - Influenza Vaccine) 1 each IM ONETIME ONE Stop: 06/26/21 17:17 Influenza Virus Vaccine (Flu Vacc [id number] 36mos Up/Pf 60 Mcg/0.5 Ml Syringe) 60 mcg IM .ONCE ONE Stop: 06/26/21 17:31 Iopamidol (Iopamidol 755 Mg/Ml 100 Ml Bottle) 100 ml IVPUSH ONETIME ONE Stop: 07/01/21 08:03 Last Admin: 07/01/21 08:40 Dose: 100 ml Documented by: Sodium Chloride (Sodium Chloride 0.9% 10 Ml Syringe) 10 ml FLUSH ONETIME PRN PRN Reason: IV FLUSH Stop: 07/01/21 18:00 Last Admin: 07/01/21 08:40 Dose: 10 ml Documented by: - Exam Quality Assessment: Supplemental Oxygen (60 L with FiO2 of 90%), DVT Prophylaxis. No: Urine Catheter General: Alert, Oriented, Cooperative, No Acute Distress HEENT: Pupils Equal, Pupils Reactive, Mucous Membr. Moist/[place] Neck: Supple, Trachea Midline Lungs: Normal Respiratory Effort, Decreased Breath Sounds, Crackles, Rhonchi, Wheezing Cardiovascular: Regular Rate, Regular Rhythm GI/Abdominal Exam: Normal Bowel Sounds, Soft, Non-Tender, No Distention (Male) Exam: Deferred Back Exam: Normal Inspection, Full Range of Motion Extremities: Normal Inspection, Normal Range of Motion, Non-Tender, No Pedal Edema, Normal Capillary Refill Peripheral Pulses: 3+: Radial (L), Radial (R), Dorsalis Pedis (L), Dorsalis Pedis (R) Skin: Warm, Dry, Intact Neurological: No New Focal Deficit Psy/Mental Status: Alert, Normal Affect, Normal Mood - Patient Data Lab Results Last 24 hrs: Laboratory Results - last 24 hr 07/02/21 07/02/21 Range/Units 06:12 08:26 Sodium 138 (136-145) mEq/L Potassium 4.5 (3.5-5.1) mEq/L Chloride 103 (98-107) mEq/L Carbon Dioxide 27 (21-32) mEq/L Anion Gap 12.5 (5-15) BUN 17 (7-18) mg/dL Creatinine 0.9 (0.7-1.3) mg/dL Est Cr Clr Drug Dosing 123.50 mL/min Estimated GFR (MDRD) > 60 (>60) mL/min BUN/Creatinine Ratio 18.9 H (14-18) Glucose 151 H (70-99) mg/dL Calcium 8.5 (8.5-10.1) mg/dL Magnesium 2.6 H (1.8-2.4) mg/dL Total Bilirubin 0.5 (0.2-1.0) mg/dL AST 33 (15-37) U/L ALT 86 H (16-63) U/L Alkaline Phosphatase 85 (46-116) U/L C-Reactive Protein 10.9 H* (<1.0) mg/dL Total Protein 7.3 (6.4-8.2) g/dl Albumin 2.7 L (3.4-5.0) g/dl Globulin 4.6 gm/dL Albumin/Globulin Ratio 0.6 L (1-2) Procalcitonin 0.10 H ng/mL Result Diagrams: 07/03/21 06:11 07/03/21 06:11 Sepsis Event Note - Evaluation Sepsis Screening Result: No Definite Risk - Focused Exam Vital Signs: Vital Signs Temp Pulse Pulse Resp BP Pulse Ox Pulse Ox 07/03/21 04:06 97.3 F 72 26 H 123/93 H 89 L 07/03/21 01:15 92 91 L 07/02/21 20:47 93 L 07/02/21 19:49 99.0 F 100 27 H 129/43 L 88 L - Problem List & Annotations (1) Hypoxia SNOMED Code(s): 682536829 Code(s): R09.02 - HYPOXEMIA Status: Acute Priority: High Current Visit: Yes (2) Pneumonia due to COVID-19 virus SNOMED Code(s): 467340820107238624 Code(s): U07.1 - COVID-19; J12.82 - PNEUMONIA DUE TO CORONAVIRUS DISEASE 2019 Status: Acute Priority: High Current Visit: Yes (3) Obesity SNOMED Code(s): 280390115, 049497507 Code(s): E66.9 - OBESITY, UNSPECIFIED Status: Chronic Priority: Medium Current Visit: No Qualifiers: Obesity type: unspecified obesity type Obesity classification: adult class 2 (BMI 35 - 39.9) Serious obesity comorbidity presence: without serious comorbidity Body mass index: BMI 37.0-37.9 Qualified Code(s): E66.9 - Obesity, unspecified; Z68.37 - Body mass index [BMI] 37.0-37.9, adult (4) Elevated d-dimer SNOMED Code(s): 357130153 Code(s): R79.89 - OTHER SPECIFIED ABNORMAL FINDINGS OF BLOOD CHEMISTRY Status: Acute Priority: High Current Visit: Yes - Problem List Review Problem List Initiated/Reviewed/Updated: Yes - My Orders Last 24 Hours: My Active Orders 07/02/21 12:15 Azithromycin [Zithromax] 500 mg PO DAILY cefTRIAXone [Rocephin] 2 gm Sodium Chloride 0.9% [Normal Saline] 100 ml IV Q24H 07/02/21 21:00 dexAMETHasone 6 mg PO BID 07/03/21 05:11 CBC WITH AUTO DIFF [HEME] AM CMP [COMPREHENSIVE METABOLIC PN,CMP] [CHEM] AM CRP [C-REACTIVE PROTEIN] [CHEM] AM DD [D-DIMER QUANTITATIVE] [COAG] Q48H MAGNESIUM [CHEM] AM 07/04/21 05:11 CBC WITH AUTO DIFF [HEME] AM CMP [COMPREHENSIVE METABOLIC PN,CMP] [CHEM] AM CRP [C-REACTIVE PROTEIN] [CHEM] AM MAGNESIUM [CHEM] AM 07/05/21 05:11 CBC WITH AUTO DIFF [HEME] AM CMP [COMPREHENSIVE METABOLIC PN,CMP] [CHEM] AM CRP [C-REACTIVE PROTEIN] [CHEM] AM DD [D-DIMER QUANTITATIVE] [COAG] Q48H MAGNESIUM [CHEM] AM - Plan Plan:: 25-year-old morbidly obese male with COVID-19 pneumonia and hypoxemia. COVID-19 pneumonia with hypoxiadeteriorated * On high flow nasal cannula at 60 L and 90% FiO2 * Did not receive vaccination * WBC 6.53, CRP 4.3, procalcitonin of 0.16 * Creatinine improved to 1.0, BUN is slightly increased at 34 * Decrease sense of smell and taste with poor appetite * Chest x-ray from day of admission showed diffuse increased density within both sides of the chest suspicious for diffuse Covid pneumonia * No findings suggestive of bacterial pneumonia 06/29/2021 WBC 8.3, D-dimer 2.19 (essentially the same as previous), creatinine 0.9 with estimated GFR greater than 60, CRP decreased to 1.7, AST 51, ALT 42, albumin 2.8. High flow nasal cannula 60 L and 90% FiO2. Mayco appears more apathetic and possibly depressed and we may consider psychiatry consult. 06/30/2021 Remains on 60 L oxygen with an FiO2 of 80% via high flow. Labs today showed increased WBC of 10.89, likely steroid related. Platelets are 250,000. Neutr ophils are elevated 87.8%. Sodium is 138. Potassium 4.1. BUN is down to 23. Creatinine 1.0. GFR greater than 60. Phosphorus is up to 5.3. Magnesium is down to 2.5.. Total bilirubin 0.6. AST is 112, ALT 128, alkaline phosphatase 89. We will continue to monitor this. CRP is down to 0.8. Patient will receive his last dose of remdesivir today. Continue baricitinib and dexamethasone. We will recheck labs in the morning. 07/01/2021 Patient currently on 50 L with FiO2 of 70% high flow. Overnight patient was requiring 60 L with FiO2 of 90%. Patient did note he had a coughing episode. WBC is back to 8.95. Hemoglobin is 12.6. Platelets are 241,000. D-dimer increased to 9.04 as below. Electrolytes remain grossly stable and phosphorus is down to 1.4. Magnesium is 2.4. GFR remains greater than 60. Bilirubin 0.6. AST is 51, ALT is 124, alkaline phosphatase 88. CRP is up to 4.4. Albumin is down to 2.6. Patient completed remdesivir and remains on day 6 of dexamethasone and day 5 of baricitinib. 07/02/2021 Patient currently on 50 L 80% FiO2 but states he overall feels pretty good. WBC remains WNL at 8.22.. Neutrophils are elevated at 88.6%. Electrolytes good. GFR greater than 60. CRP is up to 10.9 today. We will send a procalcitonin. We will consider increasing steroid dosing. Completed remdesivir. Continues on baricitinib and dexamethasone 07/03/2021 Currently on 60 L with an FiO2 of 90%. Patient did have a syncopal episode today while in the shower and rapid response was called. Patient quickly regained consciousness but was reporting shortness of breath. Vital signs were stable and oxygen livery was increased. Patient given 20 mg IV push Lasix today and we will try BiPAP tonight overnight. Started on Mucinex twice daily. WBC is up to 9.95, likely steroid related. Hemoglobin is 13.4 neutrophils are elevated at 91.7%. Electrolytes look good and GFR remains greater than 60. CRP has improved to 5.7. Procalcitonin returned low at 0.10. We will at this time continue IV antibiotics. We will also monitor for possible diuresis in the future. Elevated D-Dimer * Significant increase on 07/01/2021 * 2.06-->2.19-->9.04 * High flow increased overnight * CTA ordered - negative for PE * Lower extremity US ordered to R/O DVT * Start Lovenox 1mg/kg BID 07/02/2021 Lower extremity ultrasound negative for DVT. CTA negative for PE as well. We will continue Lovenox 1 mg/kg twice daily until we see improvement for fear of hypercoagulable state. 07/03/2021 D-dimer has improved but is still elevated at 3.43. We will continue Lovenox 1 mg/kg twice daily for now. Plan * Admit to medical floor with strict isolation * Remdesivir completed * dexamethasone BID 6mg * Baricitinib 4 mg daily for up to 14 days * Continue high flow to keep SPO2 between 88 and 94% * Follow daily CBC, CMP, mag, CRP for the first 5 days * D-dimers Q48H * RT consult. * I-S * Encourage quality food including protein intake * Encourage proning * Lovenox 40 mg subcu for VTE prophylaxis * CODE STATUS full code Because of his significant worsening in oxygen saturations over the last 12 ho urs I recommended baricitinib. I spoke with Mayco to provide information about baricitinib. I offered the "fax sheet for patients and parents/caregivers, for baricitinib" to read and review. I stated that therapy has been approved by an emergency use authorization process and has not fully been FDA reviewed or approved. I shared potential risks from the therapy including increased risk for serious infections, anaphylaxis, and reaction to medication. I discussed there are other potential treatment options that are currently not FDA approved to treat COVID-19. Offered opportunity to ask questions and all questions were answered. Mayco voiced understanding and agreed to proceed with treatment.
[2021-07-03] MEDS: Albuterol/Ipratropium 3.0-0.5 MG/3 ML Neb Soln NEB PRN ×3 (07:53→21:42)
[2021-07-03] MEDS: Enoxaparin 120 MG/0.8 ML Syringe SUBCUT SCH ×2 (08:40→21:30)
[2021-07-03] MEDS: Azithromycin 250 MG Tab PO SCH (08:40)
[2021-07-03] MEDS: Dexamethasone 4 MG Tab PO SCH ×2 (08:40→21:29)
[2021-07-03] MEDS ORDERED: Furosemide 20 MG/2 ML VIAL IVPUSH ONE (09:00)
[2021-07-03] MEDS: cefTRIAXone 2 GM in Sodium Chloride 0.9% 100 ML IV SCH (11:49)
[2021-07-03] MEDS: guaiFENesin 600 MG Tab.ER PO SCH (21:30)
[2021-07-04] MEDS: Albuterol/Ipratropium 3.0-0.5 MG/3 ML Neb Soln NEB PRN ×3 (05:19→19:51)
--- NOTE | 2021-07-04 08:46 | PCM.PN ---
- General Info Date of Service: 07/04/21 Admission Dx/Problem (Free Text): COVID-19 positive test (U07.1, COVID-19) with Acute Pneumonia (J12.89, Other viral pneumonia) (If respiratory failure or sepsis present, add as separate assessment) Functional Status: Reports: Pain Controlled, Tolerating Diet, Ambulating, Urinating, Incentive Spirometry. Denies: New Symptoms - Review of Systems General: Reports: No Symptoms. Denies: Fever, Weakness, Fatigue, Malaise, Chills HEENT: Reports: No Symptoms. Denies: Headaches, Sore Throat Pulmonary: Reports: Shortness of Breath, Pleuritic Chest Pain, Cough. Denies: Sputum, Wheezing Cardiovascular: Reports: Dyspnea on Exertion. Denies: Chest Pain, Palpitations Gastrointestinal: Reports: No Symptoms. Denies: Abdominal Pain, Constipation, Diarrhea, Nausea, Vomiting Genitourinary: Reports: No Symptoms. Denies: Pain Musculoskeletal: Reports: No Symptoms Skin: Reports: No Symptoms Neurological: Reports: Difficulty Walking (2/2 dyspnea), Weakness. Denies: Confusion, Dizziness, Headache, Numbness, Pre-Existing Deficit, Seizure, Syncope, Tingling, Tremors, Trouble Speaking, Gait Disturbance Psychiatric: Reports: No Symptoms - Patient Data Vitals - Most Recent: Last Vital Signs Temp 96.6 F L 07/04/21 04:07 Pulse 87 07/04/21 04:30 Resp 26 H 07/04/21 04:07 BP 129/63 07/04/21 04:07 Pulse Ox 94 L 07/04/21 05:19 Weight - Most Recent: 242 lb 4.8 oz I&O - Last 24 Hours: Intake & Output 07/03/21 07/04/21 07/04/21 22:59 06:59 14:59 Intake Total 1140 400 Balance 1140 400 Lab Results Last 24 Hours: Laboratory Results - last 24 hr 07/04/21 07/04/21 Range/Units 06:07 06:07 WBC 13.11 H (4.23-9.07) K/mm3 RBC 4.89 (4.63-6.08) M/mm3 Hgb 13.0 L (13.7-17.5) gm/dl Hct 40.1 (40.1-51.0) % MCV 82.0 (79.0-92.2) fl MCH 26.6 (25.7-32.2) pg MCHC 32.4 (32.2-35.5) g/dl RDW Std Deviation 41.5 (35.1-43.9) fL Plt Count 347 H (163-337) K/mm3 MPV 11.3 (9.4-12.3) fl Neut % (Auto) 90.3 H (34.0-67.9) % Lymph % (Auto) 5.3 L (21.8-53.1) % [place] % (Auto) 3.4 L (5.3-12.2) % Eos % (Auto) 0.1 L (0.8-7.0) Baso % (Auto) 0.1 (0.1-1.2) % Neut # (Auto) 11.85 H (1.78-5.38) K/mm3 Lymph # (Auto) 0.69 L (1.32-3.57) K/mm3 [place] # (Auto) 0.44 (0.30-0.82) K/mm3 Eos # (Auto) 0.01 L (0.04-0.54) K/mm3 Baso # (Auto) 0.01 (0.01-0.08) K/mm3 Manual Slide Review Abnormal smear Sodium 135 L (136-145) mEq/L Potassium 4.5 (3.5-5.1) mEq/L Chloride 101 (98-107) mEq/L Carbon Dioxide 24 (21-32) mEq/L Anion Gap 14.5 (5-15) BUN 19 H (7-18) mg/dL Creatinine 0.8 (0.7-1.3) mg/dL Est Cr Clr Drug Dosing 138.94 mL/min Estimated GFR (MDRD) > 60 (>60) mL/min BUN/Creatinine Ratio 23.8 H (14-18) Glucose 163 H (70-99) mg/dL Calcium 8.8 (8.5-10.1) mg/dL Magnesium 2.3 (1.8-2.4) mg/dL Total Bilirubin 0.4 (0.2-1.0) mg/dL AST 24 (15-37) U/L ALT 55 (16-63) U/L Alkaline Phosphatase 77 (46-116) U/L C-Reactive Protein 2.5 H* (<1.0) mg/dL Total Protein 7.5 (6.4-8.2) g/dl Albumin 2.7 L (3.4-5.0) g/dl Globulin 4.8 gm/dL Albumin/Globulin Ratio 0.6 L (1-2) Med Orders - Current: Current Medications Acetaminophen (Acetaminophen 325 Mg Tab) 650 mg PO Q4H PRN PRN Reason: Pain (Mild 1-3)/fever Last Admin: 06/26/21 18:03 Dose: 650 mg Documented by: Albuterol/Ipratropium (Albuterol/Ipratropium 3.0-0.5 Mg/3 Ml Neb Soln) 3 ml NEB Q4H PRN PRN Reason: Shortness Of Breath/wheezing Last Admin: 07/04/21 05:19 Dose: 3 ml Documented by: Azithromycin (Azithromycin 250 Mg Tab) 500 mg PO DAILY [facility] Stop: 07/04/21 09:01 Last Admin: 07/03/21 08:40 Dose: 500 mg Documented by: Baricitinib (Baricitinib 2 Mg Tab) 4 mg PO DAILY [facility] Stop: 07/11/21 09:01 Last Admin: 07/03/21 08:39 Dose: 4 mg Documented by: Benzonatate (Benzonatate 100 Mg Cap) 200 mg PO Q8H PRN PRN Reason: Cough Dexamethasone (Dexamethasone 4 Mg Tab) 6 mg PO BID [facility] Last Admin: 07/03/21 21:29 Dose: 6 mg Documented by: Enoxaparin Sodium (Enoxaparin 120 Mg/0.8 Ml Syringe) 120 mg SUBCUT Q12H [facility] Last Admin: 07/03/21 21:30 Dose: 120 mg Documented by: Guaifenesin (Guaifenesin 600 Mg Tab.Er) 600 mg PO BID [facility] Last Admin: 07/03/21 21:30 Dose: 600 mg Documented by: Ceftriaxone Sodium 2 gm/ (Sodium Chloride) 100 mls @ 200 mls/hr IV Q24H [facility] Last Admin: 07/03/21 11:49 Dose: 200 mls/hr Documented by: Ondansetron HCl (Ondansetron 4 Mg/2 Ml Sdv) 4 mg IV Q6H PRN PRN Reason: Nausea/Vomiting Polyethylene Glycol (Polyethylene Glycol 3350 Powder 17 Gm Packet) 17 gm PO DAILY PRN PRN Reason: Constipation Sodium Chloride (Sodium Chloride 0.9% 10 Ml Syringe) 10 ml FLUSH ASDIRECTED PRN PRN Reason: Keep Vein Open Last Admin: 06/26/21 14:59 Dose: 10 ml Documented by: Discontinued Medications Dexamethasone (Dexamethasone 4 Mg Tab) 6 mg PO DAILY [facility] Stop: 07/05/21 09:01 Last Admin: 06/26/21 17:42 Dose: Not Given Documented by: Dexamethasone (Dexamethasone 4 Mg Tab) 6 mg PO Q24H [facility] Stop: 07/05/21 21:01 Last Admin: 07/01/21 20:17 Dose: 6 mg Documented by: Enoxaparin Sodium (Enoxaparin 40 Mg/0.4 Ml Syringe) 40 mg SUBCUT DAILY [facility] Last Admin: 06/26/21 17:42 Dose: Not Given Documented by: Enoxaparin Sodium (Enoxaparin 40 Mg/0.4 Ml Syringe) 40 mg SUBCUT Q24H [facility] Last Admin: 06/30/21 20:13 Dose: 40 mg Documented by: Furosemide (Furosemide 20 Mg/2 Ml Vial) 20 mg IVPUSH NOW ONE Stop: 07/03/21 09:01 Last Admin: 07/03/21 08:40 Dose: 20 mg Documented by: Remdesivir 200 mg/ Sodium (Chloride) 250 mls @ 250 mls/hr IV ONETIME ONE Stop: 06/26/21 15:44 Last Admin: 06/26/21 17:11 Dose: 250 mls/hr Documented by: Remdesivir 100 mg/ Sodium (Chloride) 100 mls @ 100 mls/hr IV Q24H [facility] Stop: 06/30/21 16:44 Last Admin: 06/30/21 15:01 Dose: 100 mls/hr Documented by: Sodium Chloride (Normal Saline) 100 mls @ 75 mls/hr IV ASDIRECTED [facility] Stop: 07/01/21 12:00 Last Admin: 07/01/21 08:41 Dose: 75 mls/hr Documented by: Influenza Virus Vaccine (Pharmacy To Dose - Influenza Vaccine) 1 each IM ONETIME ONE Stop: 06/26/21 17:17 Influenza Virus Vaccine (Flu Vacc [id number] 36mos Up/Pf 60 Mcg/0.5 Ml Syringe) 60 mcg IM .ONCE ONE Stop: 06/26/21 17:31 Iopamidol (Iopamidol 755 Mg/Ml 100 Ml Bottle) 100 ml IVPUSH ONETIME ONE Stop: 07/01/21 08:03 Last Admin: 07/01/21 08:40 Dose: 100 ml Documented by: Sodium Chloride (Sodium Chloride 0.9% 10 Ml Syringe) 10 ml FLUSH ONETIME PRN PRN Reason: IV FLUSH Stop: 07/01/21 18:00 Last Admin: 07/01/21 08:40 Dose: 10 ml Documented by: - Exam Quality Assessment: Supplemental Oxygen (High flow 60L with FiO2 of 90%), DVT Prophylaxis General: Alert, Oriented, Cooperative, No Acute Distress HEENT: Pupils Equal, Pupils Reactive, Mucous Membr. Moist/[place] Neck: Supple, Trachea Midline Lungs: Normal Respiratory Effort, Decreased Breath Sounds, Crackles Cardiovascular: Regular Rate, Regular Rhythm GI/Abdominal Exam: Normal Bowel Sounds, Soft, Non-Tender, No Distention (Male) Exam: Deferred Back Exam: Normal Inspection, Full Range of Motion Peripheral Pulses: 2+: Radial (L), Radial (R), Dorsalis Pedis (L), Dorsalis Pedis (R) Skin: Warm, Dry, Intact Neurological: No New Focal Deficit Psy/Mental Status: Alert, Normal Affect, Normal Mood - Patient Data Lab Results Last 24 hrs: Laboratory Results - last 24 hr 07/04/21 07/04/21 Range/Units 06:07 06:07 WBC 13.11 H (4.23-9.07) K/mm3 RBC 4.89 (4.63-6.08) M/mm3 Hgb 13.0 L (13.7-17.5) gm/dl Hct 40.1 (40.1-51.0) % MCV 82.0 (79.0-92.2) fl MCH 26.6 (25.7-32.2) pg MCHC 32.4 (32.2-35.5) g/dl RDW Std Deviation 41.5 (35.1-43.9) fL Plt Count 347 H (163-337) K/mm3 MPV 11.3 (9.4-12.3) fl Neut % (Auto) 90.3 H (34.0-67.9) % Lymph % (Auto) 5.3 L (21.8-53.1) % [place] % (Auto) 3.4 L (5.3-12.2) % Eos % (Auto) 0.1 L (0.8-7.0) Baso % (Auto) 0.1 (0.1-1.2) % Neut # (Auto) 11.85 H (1.78-5.38) K/mm3 Lymph # (Auto) 0.69 L (1.32-3.57) K/mm3 [place] # (Auto) 0.44 (0.30-0.82) K/mm3 Eos # (Auto) 0.01 L (0.04-0.54) K/mm3 Baso # (Auto) 0.01 (0.01-0.08) K/mm3 Manual Slide Review Abnormal smear Sodium 135 L (136-145) mEq/L Potassium 4.5 (3.5-5.1) mEq/L Chloride 101 (98-107) mEq/L Carbon Dioxide 24 (21-32) mEq/L Anion Gap 14.5 (5-15) BUN 19 H (7-18) mg/dL Creatinine 0.8 (0.7-1.3) mg/dL Est Cr Clr Drug Dosing 138.94 mL/min Estimated GFR (MDRD) > 60 (>60) mL/min BUN/Creatinine Ratio 23.8 H (14-18) Glucose 163 H (70-99) mg/dL Calcium 8.8 (8.5-10.1) mg/dL Magnesium 2.3 (1.8-2.4) mg/dL Total Bilirubin 0.4 (0.2-1.0) mg/dL AST 24 (15-37) U/L ALT 55 (16-63) U/L Alkaline Phosphatase 77 (46-116) U/L C-Reactive Protein 2.5 H* (<1.0) mg/dL Total Protein 7.5 (6.4-8.2) g/dl Albumin 2.7 L (3.4-5.0) g/dl Globulin 4.8 gm/dL Albumin/Globulin Ratio 0.6 L (1-2) Result Diagrams: 07/04/21 06:07 07/04/21 06:07 Sepsis Event Note - Evaluation Sepsis Screening Result: Sepsis Risk - Focused Exam Vital Signs: Vital Signs Temp Pulse Pulse Resp BP Pulse Ox Pulse Ox 10/15/21 05:19 07/04/21 04:30 87 07/04/21 04:07 96.6 F L 104 H 26 H 129/63 83 L 07/04/21 02:04 07/03/21 23:45 99.0 F 26 H 115/42 L 07/03/21 21:42 87 L 07/03/21 21:28 94 97 07/03/21 20:50 97.3 F 105 H 22 H 144/60 H 85 L Pulse Ox 07/04/21 05:19 94 L 07/04/21 04:30 07/04/21 04:07 07/04/21 02:04 90 L 07/03/21 23:45 07/03/21 21:42 07/03/21 21:28 07/03/21 20:50 - Problem List & Annotations (1) Hypoxia SNOMED Code(s): 024059411 Code(s): R09.02 - HYPOXEMIA Status: Acute Priority: High Current Visit: Yes (2) Pneumonia due to COVID-19 virus SNOMED Code(s): 692258994497481606 Code(s): U07.1 - COVID-19; J12.82 - PNEUMONIA DUE TO CORONAVIRUS DISEASE 2019 Status: Acute Priority: High Current Visit: Yes (3) Obesity SNOMED Code(s): 807632875, 577385503 Code(s): E66.9 - OBESITY, UNSPECIFIED Status: Chronic Priority: Medium Current Visit: No Qualifiers: Obesity type: unspecified obesity type Obesity classification: adult class 2 (BMI 35 - 39.9) Serious obesity comorbidity presence: without serious comorbidity Body mass index: BMI 37.0-37.9 Qualified Code(s): E66.9 - Obesity, unspecified; Z68.37 - Body mass index [BMI] 37.0-37.9, adult (4) Elevated d-dimer SNOMED Code(s): 530872339 Code(s): R79.89 - OTHER SPECIFIED ABNORMAL FINDINGS OF BLOOD CHEMISTRY Status: Acute Priority: High Current Visit: Yes - Problem List Review Problem List Initiated/Reviewed/Updated: Yes - My Orders Last 24 Hours: My Active Orders 07/03/21 08:12 BIPAP [RT BiPAP/CPAP] [RC] ASDIRECTED 07/03/21 21:00 guaiFENesin [Mucinex] 600 mg PO BID 07/05/21 05:11 CBC WITH AUTO DIFF [HEME] AM CMP [COMPREHENSIVE METABOLIC PN,CMP] [CHEM] AM CRP [C-REACTIVE PROTEIN] [CHEM] AM DD [D-DIMER QUANTITATIVE] [COAG] Q48H MAGNESIUM [CHEM] AM - Plan Plan:: 25-year-old morbidly obese male with COVID-19 pneumonia and hypoxemia. COVID-19 pneumonia with hypoxiadeteriorated * On high flow nasal cannula at 60 L and 90% FiO2 * Did not receive vaccination * WBC 6.53, CRP 4.3, procalcitonin of 0.16 * Creatinine improved to 1.0, BUN is slightly increased at 34 * Decrease sense of smell and taste with poor appetite * Chest x-ray from day of admission showed diffuse increased density within both sides of the chest suspicious for diffuse Covid pneumonia * No findings suggestive of bacterial pneumonia 06/29/2021 WBC 8.3, D-dimer 2.19 (essentially the same as previous), creatinine 0.9 with estimated GFR greater than 60, CRP decreased to 1.7, AST 51, ALT 42, albumin 2.8. High flow nasal cannula 60 L and 90% FiO2. Mayco appears more apathetic and possibly depressed and we may consider psychiatry consult. 06/30/2021 Remains on 60 L oxygen with an FiO2 of 80% via high flow. Labs today showed increased WBC of 10.89, likely steroid related. Platelets are 250,000. Letitia trophils are elevated 87.8%. Sodium is 138. Potassium 4.1. BUN is down to 23. Creatinine 1.0. GFR greater than 60. Phosphorus is up to 5.3. Magnesium is down to 2.5.. Total bilirubin 0.6. AST is 112, ALT 128, alkaline phosphatase 89. We will continue to monitor this. CRP is down to 0.8. Patient will receive his last dose of remdesivir today. Continue baricitinib and dexamethasone. We will recheck labs in the morning. 07/01/2021 Patient currently on 50 L with FiO2 of 70% high flow. Overnight patient was requiring 60 L with FiO2 of 90%. Patient did note he had a coughing episode. WBC is back to 8.95. Hemoglobin is 12.6. Platelets are 241,000. D-dimer increased to 9.04 as below. Electrolytes remain grossly stable and phosphorus is down to 1.4. Magnesium is 2.4. GFR remains greater than 60. Bilirubin 0.6. AST is 51, ALT is 124, alkaline phosphatase 88. CRP is up to 4.4. Albumin is down to 2.6. Patient completed remdesivir and remains on day 6 of dexamethasone and day 5 of baricitinib. 07/02/2021 Patient currently on 50 L 80% FiO2 but states he overall feels pretty good. WBC remains WNL at 8.22.. Neutrophils are elevated at 88.6%. Electrolytes good. GFR greater than 60. CRP is up to 10.9 today. We will send a procalcitonin. We will consider increasing steroid dosing. Completed remdesivir. Continues on baricitinib and dexamethasone 07/03/2021 Currently on 60 L with an FiO2 of 90%. Patient did have a syncopal episode today while in the shower and rapid response was called. Patient quickly regained consciousness but was reporting shortness of breath. Vital signs were stable and oxygen livery was increased. Patient given 20 mg IV push Lasix today and we will try BiPAP tonight overnight. Started on Mucinex twice daily. WBC is up to 9.95, likely steroid related. Hemoglobin is 13.4 neutrophils are elevated at 91.7%. Electrolytes look good and GFR remains greater than 60. CRP has improved to 5.7. Procalcitonin returned low at 0.10. We will at this time continue IV antibiotics. We will also monitor for possible diuresis in the future. 07/04/2021 Remains on 60 L with an FiO2 of 90%. States overall he feels equal or better than yesterday. Labs show an increased white count of 13.11. Sodium is 135. Potassium 4.5. BUN is up to 19. Creatinine 0.8. GFR greater than 60. CRP is 2.5 and albumin is up to 2.7. Patient states he still feels like he has quite a bit of congestion in his chest. We will start Mucomyst twice daily. He is on Rocephin and azithromycin and will complete his azithromycin today. Remains on Lovenox 120 mg every 12 hours due to his elevated D-dimer. He completed remdesivir and is on baricitinib. He is also receiving dexamethasone. Unknown length of stay due to severity of symptoms. Elevated D-Dimer * Significant increase on 07/01/2021 * 2.06-->2.19-->9.04 * High flow increased overnight * CTA ordered - negative for PE * Lower extremity US ordered to R/O DVT * Start Lovenox 1mg/kg BID 07/02/2021 Lower extremity ultrasound negative for DVT. CTA negative for PE as well. We will continue Lovenox 1 mg/kg twice daily until we see improvement for fear of hypercoagulable state. 07/03/2021 D-dimer has improved but is still elevated at 3.43. We will continue Lovenox 1 mg/kg twice daily for now. 07/04/2021 We will recheck D-dimer tomorrow. Continues on Lovenox 1 mg/kg twice daily. Plan * Admit to medical floor with strict isolation * Remdesivir completed * dexamethasone BID 6mg * Baricitinib 4 mg daily for up to 14 days * Continue high flow to keep SPO2 between 88 and 94% * Follow daily CBC, CMP, mag, CRP for the first 5 days * D-dimers Q48H * RT consult. * I-S * Encourage quality food including protein intake * Encourage proning * Lovenox 40 mg subcu for VTE prophylaxis * CODE STATUS full code Because of his significant worsening in oxygen saturations over the last 12 hours I recommended baricitinib. I spoke with [facility]co to provide information about baricitinib. I offered the "fax sheet for patients and parents/caregivers, for baricitinib" to read and review. I stated that therapy has been approved by an emergency use authorization process and has not fully been FDA reviewed or approved. I shared potential risks from the therapy including increased risk for serious infections, anaphylaxis, and reaction to medication. I discussed there are other potential treatment options that are currently not FDA approved to treat COVID-19. Offer ed opportunity to ask questions and all questions were answered. Mayco voiced understanding and agreed to proceed with treatment.
[2021-07-04] MEDS: guaiFENesin 600 MG Tab.ER PO SCH ×2 (08:53→22:29)
[2021-07-04] MEDS: Dexamethasone 4 MG Tab PO SCH ×2 (08:53→22:28)
[2021-07-04] MEDS: Azithromycin 250 MG Tab PO SCH (08:53)
[2021-07-04] MEDS: Enoxaparin 120 MG/0.8 ML Syringe SUBCUT SCH ×2 (08:54→22:30)
[2021-07-04] MEDS: cefTRIAXone 2 GM in Sodium Chloride 0.9% 100 ML IV SCH (11:40)
[2021-07-04] MEDS: Acetylcysteine 20% 200 MG/ML 4 ML Nebulizer Soln SDV NEB SCH ×2 (11:59→20:12)
[2021-07-04] MEDS ORDERED: Acetylcysteine 20% 200 MG/ML 4 ML Nebulizer Soln SDV NEB PRN (22:51)
[2021-07-05] MEDS: Albuterol/Ipratropium 3.0-0.5 MG/3 ML Neb Soln NEB PRN ×4 (06:11→19:41)
[2021-07-05] MEDS: guaiFENesin 600 MG Tab.ER PO SCH ×2 (09:12→21:26)
[2021-07-05] MEDS: Dexamethasone 4 MG Tab PO SCH ×2 (09:12→21:27)
[2021-07-05] MEDS: Enoxaparin 120 MG/0.8 ML Syringe SUBCUT SCH ×2 (09:13→21:25)
[2021-07-05] MEDS: cefTRIAXone 2 GM in Sodium Chloride 0.9% 100 ML IV SCH (11:18)
--- NOTE | 2021-07-05 15:14 | PCM.PN ---
- General Info Date of Service: 07/05/21 Admission Dx/Problem (Free Text): COVID-19 positive test (U07.1, COVID-19) with Acute Pneumonia (J12.89, Other viral pneumonia) (If respiratory failure or sepsis present, add as separate assessment) Subjective Update: Patient is a 62-year-old female who was admitted to the hospital due to Covid pneumonia and oxygen desaturation Patient does not have any new complaints. He still complains of shortness of breath. She needs oxygen up to 60L FiO2 80% CRP 0.8 which was a 2.5 we are Wednesday D-dimer elevated to 4.66 - Review of Systems Systems Review Comment:: General: Reports: No Symptoms. Denies: Fever, Weakness, Fatigue, Malaise, Chills HEENT: Reports: No Symptoms. Denies: Headaches, Sore Throat Pulmonary: Reports: Shortness of Breath, Pleuritic Chest Pain, Cough. Denies: Sputum, Wheezing Cardiovascular: Reports: Dyspnea on Exertion. Denies: Chest Pain, Palpitations Gastrointestinal: Reports: No Symptoms. Denies: Abdominal Pain, Constipation, Diarrhea, Nausea, Vomiting Genitourinary: Reports: No Symptoms. Denies: Pain Musculoskeletal: Reports: No Symptoms Skin: Reports: No Symptoms Neurological: Reports: Difficulty Walking (2/2 dyspnea), Weakness. Denies: Confusion, Dizziness, Headache, Numbness, Pre-Existing Deficit, Seizure, Syncope, Tingling, Tremors, Trouble Speaking, Gait Disturbance Psychiatric: Reports: No Symptoms - Patient Data Vitals - Most Recent: Last Vital Signs Temp 36.7 C 07/05/21 11:26 Pulse 86 07/05/21 11:26 Resp 24 H 07/05/21 11:26 BP 128/51 L 07/05/21 11:26 Pulse Ox 90 L 07/05/21 14:34 Weight - Most Recent: 108.817 kg I&O - Last 24 Hours: Intake & Output 07/05/21 07/05/21 07/05/21 06:59 14:59 22:59 Intake Total 400 Balance 400 Lab Results Last 24 Hours: Laboratory Results - last 24 hr 07/05/21 07/05/21 07/05/21 Range/Units 07:20 07:20 07:20 WBC 12.13 H (4.23-9.07) K/mm3 RBC 4.84 (4.63-6.08) M/mm3 Hgb 12.9 L (13.7-17.5) gm/dl Hct 40.3 (40.1-51.0) % MCV 83.3 (79.0-92.2) fl MCH 26.7 (25.7-32.2) pg MCHC 32.0 L (32.2-35.5) g/dl RDW Std Deviation 41.8 (35.1-43.9) fL Plt Count 389 H (163-337) K/mm3 MPV 10.7 (9.4-12.3) fl Neut % (Auto) 89.6 H (34.0-67.9) % Lymph % (Auto) 6.2 L (21.8-53.1) % [place] % (Auto) 3.0 L (5.3-12.2) % Eos % (Auto) 0 L (0.8-7.0) Baso % (Auto) 0.2 (0.1-1.2) % Neut # (Auto) 10.88 H (1.78-5.38) K/mm3 Lymph # (Auto) 0.75 L (1.32-3.57) K/mm3 [place] # (Auto) 0.36 (0.30-0.82) K/mm3 Eos # (Auto) 0.00 L (0.04-0.54) K/mm3 Baso # (Auto) 0.02 (0.01-0.08) K/mm3 D-Dimer, Quantitative 4.66 H (0.19-0.50) mg/L Sodium 135 L (136-145) mEq/L Potassium 4.6 (3.5-5.1) mEq/L Chloride 102 (98-107) mEq/L Carbon Dioxide 23 (21-32) mEq/L Anion Gap 14.6 (5-15) BUN 19 H (7-18) mg/dL Creatinine 0.9 (0.7-1.3) mg/dL Est Cr Clr Drug Dosing 123.50 mL/min Estimated GFR (MDRD) > 60 (>60) mL/min BUN/Creatinine Ratio 21.1 H (14-18) Glucose 142 H (70-99) mg/dL Calcium 8.6 (8.5-10.1) mg/dL Magnesium 2.1 (1.8-2.4) mg/dL Total Bilirubin 0.3 (0.2-1.0) mg/dL AST 27 (15-37) U/L ALT 54 (16-63) U/L Alkaline Phosphatase 75 (46-116) U/L C-Reactive Protein 0.8 (<1.0) mg/dL Total Protein 7.3 (6.4-8.2) g/dl Albumin 2.6 L (3.4-5.0) g/dl Globulin 4.7 gm/dL Albumin/Globulin Ratio 0.6 L (1-2) Med Orders - Current: Current Medications Acetaminophen (Acetaminophen 325 Mg Tab) 650 mg PO Q4H PRN PRN Reason: Pain (Mild 1-3)/fever Last Admin: 06/26/21 18:03 Dose: 650 mg Documented by: Acetylcysteine (Acetylcysteine 20% 200 Mg/Ml 4 Ml Nebulizer Soln Sdv) 800 mg NEB BIDRT PRN PRN Reason: Cough Albuterol/Ipratropium (Albuterol/Ipratropium 3.0-0.5 Mg/3 Ml Neb Soln) 3 ml NEB Q4H PRN PRN Reason: Shortness Of Breath/wheezing Last Admin: 07/05/21 14:34 Dose: 3 ml Documented by: Baricitinib (Baricitinib 2 Mg Tab) 4 mg PO DAILY [facility] Stop: 07/11/21 09:01 Last Admin: 07/05/21 09:12 Dose: 4 mg Documented by: Benzonatate (Benzonatate 100 Mg Cap) 200 mg PO Q8H PRN PRN Reason: Cough Dexamethasone (Dexamethasone 4 Mg Tab) 6 mg PO BID [facility] Last Admin: 07/05/21 09:12 Dose: 6 mg Documented by: Enoxaparin Sodium (Enoxaparin 120 Mg/0.8 Ml Syringe) 120 mg SUBCUT Q12H [facility] Last Admin: 07/05/21 09:13 Dose: 120 mg Documented by: Guaifenesin (Guaifenesin 600 Mg Tab.Er) 600 mg PO BID [facility] Last Admin: 07/05/21 09:12 Dose: 600 mg Documented by: Ceftriaxone Sodium 2 gm/ (Sodium Chloride) 100 mls @ 200 mls/hr IV Q24H [facility] Stop: 07/06/21 12:44 Last Admin: 07/05/21 11:18 Dose: 200 mls/hr Documented by: Ondansetron HCl (Ondansetron 4 Mg/2 Ml Sdv) 4 mg IV Q6H PRN PRN Reason: Nausea/Vomiting Polyethylene Glycol (Polyethylene Glycol 3350 Powder 17 Gm Packet) 17 gm PO DAILY PRN PRN Reason: Constipation Sodium Chloride (Sodium Chloride 0.9% 10 Ml Syringe) 10 ml FLUSH ASDIRECTED PRN PRN Reason: Keep Vein Open Last Admin: 06/26/21 14:59 Dose: 10 ml Documented by: Discontinued Medications Acetylcysteine (Acetylcysteine 20% 200 Mg/Ml 4 Ml Nebulizer Soln Sdv) 800 mg NEB BIDRT [facility] Last Admin: 07/04/21 20:12 Dose: Not Given Documented by: Azithromycin (Azithromycin 250 Mg Tab) 500 mg PO DAILY [facility] Stop: 07/04/21 09:01 Last Admin: 07/04/21 08:53 Dose: 500 mg Documented by: Dexamethasone (Dexamethasone 4 Mg Tab) 6 mg PO DAILY [facility] Stop: 07/05/21 09:01 Last Admin: 06/26/21 17:42 Dose: Not Given Documented by: Dexamethasone (Dexamethasone 4 Mg Tab) 6 mg PO Q24H [facility] Stop: 07/05/21 21:01 Last Admin: 07/01/21 20:17 Dose: 6 mg Documented by: Enoxaparin Sodium (Enoxaparin 40 Mg/0.4 Ml Syringe) 40 mg SUBCUT DAILY [facility] Last Admin: 06/26/21 17:42 Dose: Not Given Documented by: Enoxaparin Sodium (Enoxaparin 40 Mg/0.4 Ml Syringe) 40 mg SUBCUT Q24H [facility] Last Admin: 06/30/21 20:13 Dose: 40 mg Documented by: Furosemide (Furosemide 20 Mg/2 Ml Vial) 20 mg IVPUSH NOW ONE Stop: 07/03/21 09:01 Last Admin: 07/03/21 08:40 Dose: 20 mg Documented by: Remdesivir 200 mg/ Sodium (Chloride) 250 mls @ 250 mls/hr IV ONETIME ONE Stop: 06/26/21 15:44 Last Admin: 06/26/21 17:11 Dose: 250 mls/hr Documented by: Remdesivir 100 mg/ Sodium (Chloride) 100 mls @ 100 mls/hr IV Q24H [facility] Stop: 06/30/21 16:44 Last Admin: 06/30/21 15:01 Dose: 100 mls/hr Documented by: Sodium Chloride (Normal Saline) 100 mls @ 75 mls/hr IV ASDIRECTED [facility] Stop: 07/01/21 12:00 Last Admin: 07/01/21 08:41 Dose: 75 mls/hr Documented by: Influenza Virus Vaccine (Pharmacy To Dose - Influenza Vaccine) 1 each IM ONETIME ONE Stop: 06/26/21 17:17 Influenza Virus Vaccine (Flu Vacc Ct1340-52 36mos Up/Pf 60 Mcg/0.5 Ml Syringe) 60 mcg IM .ONCE ONE Stop: 06/26/21 17:31 Iopamidol (Iopamidol 755 Mg/Ml 100 Ml Bottle) 100 ml IVPUSH ONETIME ONE Stop: 07/01/21 08:03 Last Admin: 07/01/21 08:40 Dose: 100 ml Documented by: Sodium Chloride (Sodium Chloride 0.9% 10 Ml Syringe) 10 ml FLUSH ONETIME PRN PRN Reason: IV FLUSH Stop: 07/01/21 18:00 Last Admin: 07/01/21 08:40 Dose: 10 ml Documented by: - Exam Physical Findings Comments:: General: Alert, Oriented, Cooperative, No Acute Distress HEENT: Pupils Equal, Pupils Reactive, Mucous Membr. Moist/[place] Neck: Supple, Trachea Midline Lungs: Normal Respiratory Effort, Decreased Breath Sounds, Crackles Cardiovascular: Regular Rate, Regular Rhythm GI/Abdominal Exam: Normal Bowel Sounds, Soft, Non-Tender, No Distention (Male) Exam: Deferred Back Exam: Normal Inspection, Full Range of Motion Peripheral Pulses: 2+: Radial (L), Radial (R), Dorsalis Pedis (L), Dorsalis Pedis (R) Skin: Warm, Dry, Intact Neurological: No New Focal Deficit Psy/Mental Status: Alert, Normal Affect, Normal Mood - Patient Data Lab Results Last 24 hrs: Laboratory Results - last 24 hr 07/05/21 07/05/21 07/05/21 Range/Units 07:20 07:20 07:20 WBC 12.13 H (4.23-9.07) K/mm3 RBC 4.84 (4.63-6.08) M/mm3 Hgb 12.9 L (13.7-17.5) gm/dl Hct 40.3 (40.1-51.0) % MCV 83.3 (79.0-92.2) fl MCH 26.7 (25.7-32.2) pg MCHC 32.0 L (32.2-35.5) g/dl RDW Std Deviation 41.8 (35.1-43.9) fL Plt Count 389 H (163-337) K/mm3 MPV 10.7 (9.4-12.3) fl Neut % (Auto) 89.6 H (34.0-67.9) % Lymph % (Auto) 6.2 L (21.8-53.1) % [place] % (Auto) 3.0 L (5.3-12.2) % Eos % (Auto) 0 L (0.8-7.0) Baso % (Auto) 0.2 (0.1-1.2) % Neut # (Auto) 10.88 H (1.78-5.38) K/mm3 Lymph # (Auto) 0.75 L (1.32-3.57) K/mm3 [place] # (Auto) 0.36 (0.30-0.82) K/mm3 Eos # (Auto) 0.00 L (0.04-0.54) K/mm3 Baso # (Auto) 0.02 (0.01-0.08) K/mm3 D-Dimer, Quantitative 4.66 H (0.19-0.50) mg/L Sodium 135 L (136-145) mEq/L Potassium 4.6 (3.5-5.1) mEq/L Chloride 102 (98-107) mEq/L Carbon Dioxide 23 (21-32) mEq/L Anion Gap 14.6 (5-15) BUN 19 H (7-18) mg/dL Creatinine 0.9 (0.7-1.3) mg/dL Est Cr Clr Drug Dosing 123.50 mL/min Estimated GFR (MDRD) > 60 (>60) mL/min BUN/Creatinine Ratio 21.1 H (14-18) Glucose 142 H (70-99) mg/dL Calcium 8.6 (8.5-10.1) mg/dL Magnesium 2.1 (1.8-2.4) mg/dL Total Bilirubin 0.3 (0.2-1.0) mg/dL AST 27 (15-37) U/L ALT 54 (16-63) U/L Alkaline Phosphatase 75 (46-116) U/L C-Reactive Protein 0.8 (<1.0) mg/dL Total Protein 7.3 (6.4-8.2) g/dl Albumin 2.6 L (3.4-5.0) g/dl Globulin 4.7 gm/dL Albumin/Globulin Ratio 0.6 L (1-2) Result Diagrams: 07/05/21 07:20 07/05/21 07:20 Sepsis Event Note - Evaluation Sepsis Screening Result: No Definite Risk - Focused Exam Vital Signs: Vital Signs Temp Pulse Resp BP Pulse Ox Pulse Ox Pulse Ox 07/05/21 14:34 90 L 07/05/21 11:58 84 L 07/05/21 11:26 36.7 C 86 24 H 128/51 L 90 L 07/05/21 10:49 84 L 07/05/21 10:33 90 L 07/05/21 08:50 36.8 C 76 24 H 120/39 L 91 L 07/05/21 06:15 90 L 07/05/21 06:04 36.7 C 97 26 H 139/85 07/05/21 04:00 88 L - Problem List Review Problem List Initiated/Reviewed/Updated: Yes - Plan Plan:: 25-year-old morbidly obese male with COVID-19 pneumonia and hypoxemia. COVID-19 pneumonia with hypoxiadeteriorated * On high flow nasal cannula at 60 L and 90% FiO2 * Did not receive vaccination * WBC 6.53, CRP 4.3, procalcitonin of 0.16 * Creatinine improved to 1.0, BUN is slightly increased at 34 * Decrease sense of smell and taste with poor appetite * Chest x-ray from day of admission showed diffuse increased density within both sides of the chest suspicious for diffuse Covid pneumonia * No findings suggestive of bacterial pneumonia 06/29/2021 WBC 8.3, D-dimer 2.19 (essentially the same as previous), creatinine 0.9 with estimated GFR greater than 60, CRP decreased to 1.7, AST 51, ALT 42, albumin 2.8. High flow nasal cannula 60 L and 90% FiO2. Mayco appears more apathetic and possibly depressed and we may consider psychiatry consult. 06/30/2021 Remains on 60 L oxygen with an FiO2 of 80% via high flow. Labs today showed increased WBC of 10.89, likely steroid related. Platelets are 250,000. Neutrophils are elevated 87.8%. Sodium is 138. Potassium 4.1. BUN is down to 23. Creatinine 1.0. GFR greater than 60. Phosphorus is up to 5.3. Magnesium is down to 2.5.. Total bilirubin 0.6. AST is 112, ALT 128, alkaline ph osphatase 89. We will continue to monitor this. CRP is down to 0.8. Patient will receive his last dose of remdesivir today. Continue baricitinib and dexamethasone. We will recheck labs in the morning. 07/01/2021 Patient currently on 50 L with FiO2 of 70% high flow. Overnight patient was requiring 60 L with FiO2 of 90%. Patient did note he had a coughing episode. WBC is back to 8.95. Hemoglobin is 12.6. Platelets are 241,000. D-dimer increased to 9.04 as below. Electrolytes remain grossly stable and phosphorus is down to 1.4. Magnesium is 2.4. GFR remains greater than 60. Bilirubin 0.6. AST is 51, ALT is 124, alkaline phosphatase 88. CRP is up to 4.4. Albumin is down to 2.6. Patient completed remdesivir and remains on day 6 of dexamethasone and day 5 of baricitinib. 07/02/2021 Patient currently on 50 L 80% FiO2 but states he overall feels pretty good. WBC remains WNL at 8.22.. Neutrophils are elevated at 88.6%. Electrolytes good. GFR greater than 60. CRP is up to 10.9 today. We will send a procalcitonin. We will consider increasing steroid dosing. Completed remdesivir. Continues on baricitinib and dexamethasone 07/03/2021 Currently on 60 L with an FiO2 of 90%. Patient did have a syncopal episode today while in the shower and rapid response was called. Patient quickly regained consciousness but was reporting shortness of breath. Vital signs were stable and oxygen livery was increased. Patient given 20 mg IV push Lasix today and we will try BiPAP tonight overnight. Started on Mucinex twice daily. WBC is up to 9.95, likely steroid related. Hemoglobin is 13.4 neutrophils are elevated at 91.7%. Electrolytes look good and GFR remains greater than 60. CRP has improved to 5.7. Procalcitonin returned low at 0.10. We will at this time continue IV antibiotics. We will also monitor for possible diuresis in the future. 07/04/2021 Remains on 60 L with an FiO2 of 90%. States overall he feels equal or better than yesterday. Labs show an increased white count of 13.11. Sodium is 135. Potassium 4.5. BUN is up to 19. Creatinine 0.8. GFR greater than 60. CRP is 2.5 and albumin is up to 2.7. Patient states he still feels like he has quite a bit of congestion in his chest. We will start Mucomyst twice daily. He is on Rocephin and azithromycin and will complete his azithromycin today. Remains on Lovenox 120 mg every 12 hours due to his elevated D-dimer. He completed remdesivir and is on baricitinib. He is also receiving dexamethasone. Unknown length of stay due to severity of symptoms. 07/05/2021 Patient does not have any new complaints. He still complains of shortness of breath. She needs oxygen up to 60L FiO2 80% CRP 0.8 which was 2.5 we are Wednesday Continue baricitinib, ceftriaxone (since July 02), dexamethasone 6 mg twice daily, and Lovenox of 120 mg twice daily Elevated D-Dimer * Significant increase on 07/01/2021 * 2.06-->2.19-->9.04->4.66 * CTA negative for PE * Lower extremity US ordered to R/O DVT * Continue t Lovenox 1mg/kg BID 07/02/2021 Lower extremity ultrasound negative for DVT. CTA negative for PE as well. We will continue Lovenox 1 mg/kg twice daily until we see improvement for fear of hypercoagulable state. 07/03/2021 D-dimer has improved but is still elevated at 3.43. We will continue Lovenox 1 mg/kg twice daily for now. 07/04/2021 We will recheck D-dimer tomorrow. Continues on Lovenox 1 mg/kg twice daily. 07/05/2021 Continue Lovenox 120 mg twice daily Plan * Admit to medical floor with strict isolation * Remdesivir completed * dexamethasone BID 6mg * Baricitinib 4 mg daily for up to 14 days * Continue high flow to keep SPO2 between 90 and 94% * Follow daily CBC, CMP, mag, CRP for the first 5 days * D-dimers Q48H * RT consult. * I-S * Encourage quality food including protein intake * Encourage proning * Lovenox 40 mg subcu for VTE prophylaxis * CODE STATUS full code Because of his significant worsening in oxygen saturations over the last 12 hours I recommended baricitinib. I spoke with Mayco to provide information about baricitinib. I offered the "fax sheet for patients and parents/caregivers, for baricitinib" to read and review. I stated that therapy has been approved by an emergency use authorization process and has not fully been FDA reviewed or approved. I shared potential risks from the therapy including increased risk for serious infections, anaphylaxis, and reaction to medication. I discussed there are other potential treatment options that are currently not FDA approved to treat COVID-19. Offered opportunity to ask questions and all questions were answered. Mayco butlerced understanding and agreed to proceed with treatment.
[2021-07-05] MEDS ORDERED: traZODone 50 MG Tab PO PRN (23:18)
[2021-07-06] MEDS: Albuterol/Ipratropium 3.0-0.5 MG/3 ML Neb Soln NEB PRN ×3 (00:14→09:32)
[2021-07-06] MEDS ORDERED: Loperamide 2 MG Cap PO STA (01:16)
[2021-07-06] MEDS ORDERED: Loperamide 2 MG Cap PO PRN (01:17)
[2021-07-06] MEDS: Dexamethasone 4 MG Tab PO SCH (08:25)
[2021-07-06] MEDS: Enoxaparin 120 MG/0.8 ML Syringe SUBCUT SCH (08:26)
[2021-07-06] MEDS: guaiFENesin 600 MG Tab.ER PO SCH (08:26)
[2021-07-06] MEDS ORDERED: Dexamethasone 10 MG/ML SDV IV SCH (09:15)
--- NOTE | 2021-07-06 09:25 | CR ---
Chest: Frontal view of the chest was obtained. Comparison: Prior chest x-ray of 07/02/21. Heart size is slightly enlarged. Upper mediastinum is stable. Diffuse increased density is seen on both sides of the chest which remain stable from prior study. Bony structures are unremarkable. Impression: 1. Heart size is slightly enlarged which is stable from prior chest x-ray. Difficult to exclude pericardial effusion. 2. Diffuse increased density on both sides of the chest which is similar to prior chest x-ray, please correlate if patient has COVID pneumonia. Diagnostic code #3
[2021-07-06] MEDS ORDERED: Dexamethasone 10 MG/ML SDV IVPUSH ONE (09:33)
[2021-07-06] MEDS ORDERED: Phenylephrine 1% 10 MG/ML SDV ONE (10:00)
[2021-07-06] MEDS ORDERED: Succinylcholine 200 MG/10 ML MDV IV ONE (10:46)
[2021-07-06] MEDS ORDERED: Propofol 200 MG/20 ML SDV IVPUSH ONE (10:46)
[2021-07-06] MEDS: fentaNYL 2,500 MCG in Sodium Chloride 0.9% 200 ML IV SCH ×2 (10:48→13:29)
--- NOTE | 2021-07-06 11:32 | CR ---
Chest: Frontal view of the chest was obtained. Comparison: Prior chest x-ray performed earlier on the same day (8:43 AM). Diffuse increased density is noted throughout both sides of the chest. Heart is enlarged. Increasing air around the heart extending into the mediastinum and into the base of the neck compatible with pneumomediastinum. Endotracheal tube is seen which lies about 2.4 cm above the zander in satisfactory position. Nasogastric tube is seen with inferior edge appearing to be within the stomach antrum. Bone window settings were reviewed which show nothing acute. Impression: 1. Increasing air around the heart and mediastinum and extending into the neck compatible with pneumomediastinum. This represents an interval change from prior study. 2. Diffuse increased density within both sides of the chest compatible with severe COVID pneumonia. 3. Satisfactory position of endotracheal tube and nasogastric tube. Diagnostic code #3
[2021-07-06] MEDS ORDERED: Sodium Chloride 0.9% 1,000 ML ONE (11:50)
[2021-07-06] MEDS ORDERED: Sodium Chloride 0.9% 500 ML IV ONE (11:53)
[2021-07-06] MEDS ORDERED: Norepinephrine 4 MG in Dextrose 5% in Water 246 ML IV SCH ×2 (12:00)
--- NOTE | 2021-07-06 12:06 | PCM.SN.2 ---
- Free Text/Narrative Note: 07/06/21 [id number] Was called to intubate this young man with covid and increasing resp distress. See Vitals. Patient awake. I discussed intubation with patient and he agrees. Requests water and denied. Diaphoretic. Rapid sequence induction with cricoid. Propofol 200 mg followed by succinylcholine 160 mg IV. Unsure of IV status as patient slow to fall asleep. Atraumatic intubation times 1 with Mac 3 blade using #8 ETT. Secured at 23 at the lips. Equal and bilateral breath sounds. Positive ETCO2 color change. RT here and placed on ventilator. Versed 5 mg IV and vecuronium 10 mg IV at 1100 as patient starting to be irritated. IV started 22 guage left wrist area. Secured and flushed. Phenylephrine 200 mcg IV when BP in the 60s at one point. Assisted with care of patient and prone positioning. Vivian [employer] Time Documentation
[2021-07-06] MEDS ORDERED: Midazolam 1 MG/ML 5 ML SDV IVPUSH ONE (12:09)
[2021-07-06] MEDS ORDERED: propofoL 100 ML ONE (13:52)
[2021-07-06] MEDS ORDERED: propofoL 100 ML IV SCH (14:00)
--- NOTE | 2021-07-06 16:00 | PCM.DCSUM1 ---
Discharge Summary - Hospital Course Free Text/Narrative:: 25-year-old morbidly obese male with COVID-19 pneumonia and hypoxemia. COVID-19 pneumonia with hypoxiadeteriorated * On high flow nasal cannula at 60 L and 90% FiO2 * Did not receive vaccination * WBC 6.53, CRP 4.3, procalcitonin of 0.16 * Creatinine improved to 1.0, BUN is slightly increased at 34 * Decrease sense of smell and taste with poor appetite * Chest x-ray from day of admission showed diffuse increased density within both sides of the chest suspicious for diffuse Covid pneumonia * No findings suggestive of bacterial pneumonia Plan * Admit to medical floor with strict isolation * Remdesivir completed * dexamethasone BID 6mg * Baricitinib 4 mg daily for up to 14 days * Continue high flow to keep SPO2 between 90 and 94% * Follow daily CBC, CMP, mag, CRP for the first 5 days * D-dimers Q48H * RT consult. * I-S * Encourage quality food including protein intake * Encourage proning * Lovenox 40 mg subcu for VTE prophylaxis * CODE STATUS full code 06/29/2021 WBC 8.3, D-dimer 2.19 (essentially the same as previous), creatinine 0.9 with estimated GFR greater than 60, CRP decreased to 1.7, AST 51, ALT 42, albumin 2.8. High flow nasal cannula 60 L and 90% FiO2. Mayco appears more apathetic and possibly depressed and we may consider psychiatry consult. 06/30/2021 Remains on 60 L oxygen with an FiO2 of 80% via high flow. Labs today showed increased WBC of 10.89, likely steroid related. Platelets are 250,000. Neutrophils are elevated 87.8%. Sodium is 138. Potassium 4.1. BUN is down to 23. Creatinine 1.0. GFR greater than 60. Phosphorus is up to 5.3. Magnesium is down to 2.5.. Total bilirubin 0.6. AST is 112, ALT 128, alkaline phosphatase 89. We will continue to monitor this. CRP is down to 0.8. Patient will receive his last dose of remdesivir today. Continue baricitinib and dexamethasone. We will recheck labs in the morning. 07/01/2021 Patient currently on 50 L with FiO2 of 70% high flow. Overnight patient was requiring 60 L with FiO2 of 90%. Patient did note he had a coughing episode. WBC is back to 8.95. Hemoglobin is 12.6. Platelets are 241,000. D-dimer increased to 9.04 as below. Electrolytes remain grossly stable and phosphorus is down to 1.4. Magnesium is 2.4. GFR remains greater than 60. Bilirubin 0.6. AST is 51, ALT is 124, alkaline phosphatase 88. CRP is up to 4.4. Albumin is down to 2.6. Patient completed remdesivir and remains on day 6 of dexamethasone and day 5 of baricitinib. 07/02/2021 Patient currently on 50 L 80% FiO2 but states he overall feels pretty good. WBC remains WNL at 8.22.. Neutrophils are elevated at 88.6%. Electrolytes good. GFR greater than 60. CRP is up to 10.9 today. We will send a procalcitonin. We will consider increasing steroid dosing. Completed remdesivir. Continues on baricitinib and dexamethasone 07/03/2021 Currently on 60 L with an FiO2 of 90%. Patient did have a syncopal episode today while in the shower and rapid response was called. Patient quickly regained consciousness but was reporting shortness of breath. Vital signs were stable and oxygen livery was increased. Patient given 20 mg IV push Lasix today and we will try BiPAP tonight overnight. Started on Mucinex twice daily. WBC is up to 9.95, likely steroid related. Hemoglobin is 13.4 neutrophils are elevated at 91.7%. Electrolytes look good and GFR remains greater than 60. CRP has improved to 5.7. Procalcitonin returned low at 0.10. We will at this time continue IV antibiotics. We will also monitor for possible diuresis in the future. 07/04/2021 Remains on 60 L with an FiO2 of 90%. States overall he feels equal or better than yesterday. Labs show an increased white count of 13.11. Sodium is 135. Potassium 4.5. BUN is up to 19. Creatinine 0.8. GFR greater than 60. CRP is 2.5 and albumin is up to 2.7. Patient states he still feels like he has quite a bit of congestion in his chest. We will start Mucomyst twice daily. He is on Rocephin and azithromycin and will complete his azithromycin today. Remains on Lovenox 120 mg every 12 hours due to his elevated D-dimer. He completed remdesivir and is on baricitinib. He is also receiving dexamethasone. Unknown length of stay due to severity of symptoms. 07/05/2021 Patient does not have any new complaints. He still complains of shortness of breath. She needs oxygen up to 60L FiO2 80% CRP 0.8 which was 2.5 we are Wednesday Continue baricitinib, ceftriaxone (since July 02), dexamethasone 6 mg twice daily, and Lovenox of 120 mg twice daily Elevated D-Dimer * Significant increase on 07/01/2021 * 2.06-->2.19-->9.04->4.66 * CTA negative for PE * Lower extremity US ordered to R/O DVT * Continue t Lovenox 1mg/kg BID 07/02/2021 Lower extremity ultrasound negative for DVT. CTA negative for PE as well. We will continue Lovenox 1 mg/kg twice daily until we see improvement for fear of hypercoagulable state. 07/03/2021 D-dimer has improved but is still elevated at 3.43. We will continue Lovenox 1 mg/kg twice daily for now. 07/04/2021 We will recheck D-dimer tomorrow. Continues on Lovenox 1 mg/kg twice daily. 07/05/2021 Continue Lovenox 120 mg twice daily Today patient condition deteriorated. Patient has been on high flow and BiPAP over the past days. But today high flow and BiPAP cannot maintain him having enough oxygen saturation. His oxygen saturation dropped to 80s. Eventually we decided to intubate him. He was intubated. Spoke to perfect binder operator Dr. Fowler at the [facility] who accepted this patient. Patient was transferred to [place] by air for further treatment. Diagnosis: Stroke: No - Discharge Data Discharge Date: 07/06/21 Discharge Disposition: DC/Tfer to Acute Hospital 02 Condition: Stable - Referral to Home Health Primary Care Physician: PCP None - Patient Summary/Data Consults: Consultations 06/26/21 15:43 Respiratory Care Assess and Treatment [CONS] Routine - Discharge Plan *PRESCRIPTION DRUG MONITORING PROGRAM REVIEWED*: Not Applicable *COPY OF PRESCRIPTION DRUG MONITORING REPORT IN PATIENT WENDY: Not Applicable Home Medications: Home Meds . [No Known Home Meds] 06/26/21 [History] Patient Handouts: COVID-19, COVID-19 Vaccine Information, 10 Things You Can Do to Manage Your COVID-19 Symptoms at Home - CDC (04/04/2021), Sepsis, Diagnosis, Adult Forms: ED Department Discharge Referrals: PCP,None [Primary Care Provider] - - Discharge Summary/Plan Comment DC Time >30 min.: Yes Total # of Minutes for Discharge Time: 90mins - General Info Date of Service: 07/06/21 Admission Dx/Problem (Free Text: COVID-19 positive test (U07.1, COVID-19) with Acute Pneumonia (J12.89, Other viral pneumonia) (If respiratory failure or sepsis present, add as separate assessment) Subjective Update: Patient is a 62-year-old female who was admitted to the hospital due to Covid pneumonia and oxygen desaturation Patient does not have any new complaints. He still complains of shortness of breath. - Review of Systems Systems Review Comment: Unable to obtain due to being on ventilator and sedation - Patient Data Vitals - Most Recent: Last Vital Signs Temp 36.6 C 07/06/21 12:00 Pulse 100 07/06/21 14:36 Resp 13 07/06/21 14:35 BP 94/19 L 07/06/21 14:58 Pulse Ox 65 L 07/06/21 14:36 Weight - Most Recent: 108.817 kg I&O - Last 24 hours: Intake & Output 07/06/21 07/06/21 07/06/21 06:59 14:59 22:59 Intake Total 300 Output Total 400 275 Balance -100 -275 Lab Results - Last 24 hrs: Laboratory Results - last 24 hr 07/06/21 07/06/21 07/06/21 Range/Units 09:40 09:57 12:36 D-Dimer, Quantitative 6.37 H (0.19-0.50) mg/L Puncture Site Lt radial Lt radial ABG pH 7.39 7.27 L (7.35-7.45) ABG pCO2 33.7 L 46.5 H (35.0-45.0) mmHg ABG pO2 51.0 L 50.0 L (80.0-100.0) mmHg ABG HCO3 20.0 L 20.8 L (22.0-26.0) meq/L ABG O2 Saturation 83.1 L 77.6 L (96.0-97.0) % ABG Base Excess -3.6 L -5.5 L (-2-2.0) A-a Gradient 620 604 mmHg O2 Delivery Device Bipap Ventilator FiO2 100.00 100.00 (21.00-100.00) % Tidal Volume 650.0 cc PEEP 20.0 cmH20 Med Orders - Current: Current Medications Acetaminophen (Acetaminophen 325 Mg Tab) 650 mg PO Q4H PRN PRN Reason: Pain (Mild 1-3)/fever Last Admin: 06/26/21 18:03 Dose: 650 mg Documented by: Acetylcysteine (Acetylcysteine 20% 200 Mg/Ml 4 Ml Nebulizer Soln Sdv) 800 mg NEB BIDRT PRN PRN Reason: Cough Albuterol/Ipratropium (Albuterol/Ipratropium 3.0-0.5 Mg/3 Ml Neb Soln) 3 ml NEB Q4H PRN PRN Reason: Shortness Of Breath/wheezing Last Admin: 07/06/21 09:32 Dose: 3 ml Documented by: Baricitinib (Baricitinib 2 Mg Tab) 4 mg PO DAILY [facility] Stop: 07/11/21 09:01 Last Admin: 07/06/21 08:24 Dose: 4 mg Documented by: Benzonatate (Benzonatate 100 Mg Cap) 200 mg PO Q8H PRN PRN Reason: Cough Dexamethasone (Dexamethasone 10 Mg/Ml Sdv) 6 mg IVPUSH DAILY [facility] Dexamethasone (Dexamethasone 10 Mg/Ml Sdv) 20 mg IV DAILY [facility] Stop: 07/10/21 09:01 Enoxaparin Sodium (Enoxaparin 120 Mg/0.8 Ml Syringe) 120 mg SUBCUT Q12H [facility] Last Admin: 07/06/21 08:26 Dose: 120 mg Documented by: Guaifenesin (Guaifenesin 600 Mg Tab.Er) 600 mg PO BID [facility] Last Admin: 07/06/21 08:26 Dose: 600 mg Documented by: dexmedeTOMIDine in dextrose 5% (Dexmedetomidine In D5w 400 Mcg/100 Ml) 100 mls @ 5.441 mls/hr IV TITRATE [facility]; Protocol Last Admin: 07/06/21 13:30 Dose: 1 mcg/kg/hr, 27.204 mls/hr Documented by: Fentanyl 2,500 mcg/ Sodium (Chloride) 250 mls @ 10.882 mls/hr IV TITRATE [facility]; Protocol Last Admin: 07/06/21 13:29 Dose: 7 mcg/kg/hr, 76.172 mls/hr Documented by: Norepinephrine Bitartrate 4 mg (/ Dextrose/Water) 250 mls @ 7.5 mls/hr IV TITRATE [facility]; Protocol Last Admin: 07/06/21 14:33 Dose: 2 mcg/min, 7.5 mls/hr Documented by: Propofol (Diprivan 100 Ml) 100 mls @ 3.265 mls/hr IV TITRATE [facility]; Protocol Loperamide HCl (Loperamide 2 Mg Cap) 2 mg PO Q4H PRN PRN Reason: Diarrhea Ondansetron HCl (Ondansetron 4 Mg/2 Ml Sdv) 4 mg IV Q6H PRN PRN Reason: Nausea/Vomiting Polyethylene Glycol (Polyethylene Glycol 3350 Powder 17 Gm Packet) 17 gm PO DAILY PRN PRN Reason: Constipation Sodium Chloride (Sodium Chloride 0.9% 10 Ml Syringe) 10 ml FLUSH ASDIRECTED PRN PRN Reason: Keep Vein Open Last Admin: 06/26/21 14:59 Dose: 10 ml Documented by: Trazodone HCl (Trazodone 50 Mg Tab) 50 mg PO BEDTIME PRN PRN Reason: Insomnia Last Admin: 07/06/21 00:00 Dose: 50 mg Documented by: Discontinued Medications Acetylcysteine (Acetylcysteine 20% 200 Mg/Ml 4 Ml Nebulizer Soln Sdv) 800 mg NEB BIDRT [facility] Last Admin: 07/04/21 20:12 Dose: Not Given Documented by: Azithromycin (Azithromycin 250 Mg Tab) 500 mg PO DAILY [facility] Stop: 07/04/21 09:01 Last Admin: 07/04/21 08:53 Dose: 500 mg Documented by: Dexamethasone (Dexamethasone 4 Mg Tab) 6 mg PO DAILY [facility] Stop: 07/05/21 09:01 Last Admin: 06/26/21 17:42 Dose: Not Given Documented by: Dexamethasone (Dexamethasone 4 Mg Tab) 6 mg PO Q24H [facility] Stop: 07/05/21 21:01 Last Admin: 07/01/21 20:17 Dose: 6 mg Documented by: Dexamethasone (Dexamethasone 4 Mg Tab) 6 mg PO BID [facility] Last Admin: 07/06/21 08:25 Dose: 6 mg Documented by: Dexamethasone (Dexamethasone 10 Mg/Ml Sdv) 20 mg IV DAILY [facility] Stop: 07/10/21 09:01 Last Admin: 07/06/21 09:40 Dose: Not Given Documented by: Dexamethasone (Dexamethasone 10 Mg/Ml Sdv) 14 mg IVPUSH ONETIME ONE Stop: 07/06/21 09:34 Last Admin: 07/06/21 10:29 Dose: 14 mg Documented by: Enoxaparin Sodium (Enoxaparin 40 Mg/0.4 Ml Syringe) 40 mg SUBCUT DAILY [facility] Last Admin: 06/26/21 17:42 Dose: Not Given Documented by: Enoxaparin Sodium (Enoxaparin 40 Mg/0.4 Ml Syringe) 40 mg SUBCUT Q24H [facility] Last Admin: 06/30/21 20:13 Dose: 40 mg Documented by: Furosemide (Furosemide 20 Mg/2 Ml Vial) 20 mg IVPUSH NOW ONE Stop: 07/03/21 09:01 Last Admin: 07/03/21 08:40 Dose: 20 mg Documented by: Remdesivir 200 mg/ Sodium (Chloride) 250 mls @ 250 mls/hr IV ONETIME ONE Stop: 06/26/21 15:44 Last Admin: 06/26/21 17:11 Dose: 250 mls/hr Documented by: Remdesivir 100 mg/ Sodium (Chloride) 100 mls @ 100 mls/hr IV Q24H [facility] Stop: 06/30/21 16:44 Last Admin: 06/30/21 15:01 Dose: 100 mls/hr Documented by: Sodium Chloride (Normal Saline) 100 mls @ 75 mls/hr IV ASDIRECTED [facility] Stop: 07/01/21 12:00 Last Admin: 07/01/21 08:41 Dose: 75 mls/hr Documented by: Ceftriaxone Sodium 2 gm/ (Sodium Chloride) 100 mls @ 200 mls/hr IV Q24H [facility] Stop: 07/06/21 12:44 Last Admin: 07/05/21 11:18 Dose: 200 mls/hr Documented by: Sodium Chloride (Normal Saline) Confirm Administered Dose 1,000 mls @ as directed .ROUTE .STK-MED ONE Stop: 07/06/21 11:51 Last Admin: 07/06/21 12:21 Dose: Not Given Documented by: Sodium Chloride (Normal Saline) 500 mls @ 999 mls/hr IV .BOLUS ONE Stop: 07/06/21 12:23 Last Admin: 07/06/21 11:52 Dose: 999 mls/hr Documented by: Propofol (Diprivan 100 Ml) Confirm Administered Dose 100 mls @ as directed .ROUTE .STK-MED ONE Stop: 07/06/21 13:53 Last Admin: 07/06/21 13:52 Dose: 3.2 mls/hr Documented by: Influenza Virus Vaccine (Pharmacy To Dose - Influenza Vaccine) 1 each IM ONETIME ONE Stop: 06/26/21 17:17 Influenza Virus Vaccine (Flu Vacc [id number] 36mos Up/Pf 60 Mcg/0.5 Ml Syringe) 60 mcg IM .ONCE ONE Stop: 06/26/21 17:31 Iopamidol (Iopamidol 755 Mg/Ml 100 Ml Bottle) 100 ml IVPUSH ONETIME ONE Stop: 07/01/21 08:03 Last Admin: 07/01/21 08:40 Dose: 100 ml Documented by: Loperamide HCl (Loperamide 2 Mg Cap) 4 mg PO ONETIME STA Stop: 07/06/21 01:17 Last Admin: 07/06/21 07:47 Dose: Not Given Documented by: Midazolam HCl (Midazolam 1 Mg/Ml 5 Ml Sdv) 5 mg IVPUSH ONETIME ONE Stop: 07/06/21 12:10 Last Admin: 07/06/21 11:00 Dose: 5 mg Documented by: Miscellaneous Medication (Phenylephrine Hcl In 0.9% Nacl 1 Mg/10 Ml Syringe) 0.1 mg IVPUSH ONETIME ONE Stop: 07/06/21 12:11 Propofol (Propofol 200 Mg/20 Ml Sdv) 200 mg IVPUSH ONETIME ONE Stop: 07/06/21 10:47 Last Admin: 07/06/21 10:46 Dose: 200 mg Documented by: Sodium Chloride (Sodium Chloride 0.9% 10 Ml Syringe) 10 ml FLUSH ONETIME PRN PRN Reason: IV FLUSH Stop: 07/01/21 18:00 Last Admin: 07/01/21 08:40 Dose: 10 ml Documented by: Succinylcholine Chloride (Succinylcholine 200 Mg/10 Ml Mdv) 60 mg IV ONETIME ONE Stop: 07/06/21 10:47 Last Admin: 07/06/21 10:46 Dose: 60 mg Documented by: Vecuronium Thompson (Vecuronium 10 Mg Vial) 10 mg IVPUSH ONETIME ONE Stop: 07/06/21 12:10 Last Admin: 07/06/21 11:00 Dose: 10 mg Documented by: - Exam General: Reports: Other (On ventilator attestation) HEENT: Reports: Pupils Reactive Neck: Reports: No JVD Lungs: Reports: Decreased Breath Sounds, Crackles Cardiovascular: Reports: Regular Rate, Tachycardia GI/Abdominal Exam: Normal Bowel Sounds, Soft, No Organomegaly Extremities: Normal Inspection, No Pedal Edema
[2021-07-07] MEDS ORDERED: Dexamethasone 10 MG/ML SDV IV SCH (09:00)
--- NOTE | 2021-07-07 16:09 | PCM.SN.2 ---
- Free Text/Narrative Note: 07/06/2021 CXR showed pneumomediastinum. I discussed with GS Dr. Bentley who recommended f/u. No procedure needed. Time Documentation
[2021-07-11] MEDS ORDERED: Dexamethasone 10 MG/ML SDV IVPUSH SCH (09:00)
== END 2021-07-06 15:03 | DRG 137 ==
LOC: JD.ED 14:13 → JD.MS 16:27 → JD.ICU 07-06 10:30
PROVIDERS: ADMIT Family Medicine; ATTEND Internal Medicine
PROC: 8E0ZXY6 Isolation (ICD-10-PCS; principal; 2021-06-26)
PROC: XW033E5 Introduction of Remdesivir Anti-infective into Peripheral Vein, Percutaneous Approach, New Technology Group 5 (ICD-10-PCS; 2021-06-26)
PROC: 3E0DX3Z Introduction of Anti-inflammatory into Mouth and Pharynx, External Approach (ICD-10-PCS; 2021-06-26)
PROC: 5A0945A Assistance with Respiratory Ventilation, 24-96 Consecutive Hours, High Flow/Velocity Cannula (ICD-10-PCS; 2021-06-29)
PROC: XW0DXM6 Introduction of Baricitinib into Mouth and Pharynx, External Approach, New Technology Group 6 (ICD-10-PCS; 2021-07-02)
PROC: 0BH17EZ Insertion of Endotracheal Airway into Trachea, Via Natural or Artificial Opening (ICD-10-PCS; 2021-07-06)
PROC: 5A1935Z Respiratory Ventilation, Less than 24 Consecutive Hours (ICD-10-PCS; 2021-07-06)
PROC: 3E0333Z Introduction of Anti-inflammatory into Peripheral Vein, Percutaneous Approach (ICD-10-PCS; 2021-07-06)
PROC: 3E033XZ Introduction of Vasopressor into Peripheral Vein, Percutaneous Approach (ICD-10-PCS; 2021-07-06)
DX: U07.1 COVID-19 (principal); J12.82 Pneumonia due to coronavirus disease 2019; J98.2 Interstitial emphysema; E66.01 Morbid (severe) obesity due to excess calories; R06.03 Acute respiratory distress; Z68.36 Body mass index [BMI] 36.0-36.9, adult
CPT/HCPCS: 31500; 36410; 36415; 36600; 51702; 71045; 71045-26; 71275; 71275-26; 80053; 82803; 83735; 84100; 84145; 85025; 85379; 86140; 93970; 93970-26; 94002; 94640; 94660; 94668; 94762; 99140; 99285-25; A9270-GY; J0330; J0696; J1100; J1650; J1940; J2250; J2370; J2704; J3010; J3490; J7030; J7050; J7060; J7620-GY; J8540; Q9967